=== PATIENT | male | born 1955 | race Caucasian/White ===

== ENCOUNTER 2017-01-12 08:49 | Observation (INO) | payer OTHER ==
[~2017-01-12] VITALS: Ht 175.3 cm; Wt 104.1 kg
[2017-01-12] VITALS (12 sets, daily range): BP systolic 126–157; BP diastolic 43–102; PULSE 54–83; RESP 12–17; O2SAT 95–100
[~2017-01-12 08:49] MED LIST: ASPI-973 PO; CHOL10008 PO; CYCL10TA9 PO; DIAZ5TAB PO; DIPH1TAB PO; FERR-83 PO; FURO40TA4 PO; GABA-502 PO; IMAT400T PO; LIPA1CAP5 PO; METH10TA2 PO; MODA200T13 PO; MULT-1073 PO; NPR500T PO; OMEP20CA11 PO; POTA20TA16 PO; PRAV40TA PO; RANI150C4 PO; SERT50TA PO
--- NOTE | 2017-01-12 09:11 | ED.REPORT ---
HPI-General Illness Date of Service Jan 12, 2017 ED Provider: The patient is a 61 year old male with history of GERD, Huerta's esophagus, prostate cancer s/p radiation, CHF, hypertension, VERENA, hiatal hernia s/p RPR/ Vagotomy, liver disease s/p partial liver resection, kidney stones, back pain, anxiety, depression, GIST tumor, and gallbladder disease, who presents to the emergency department complaining of coffee-ground emesis that began yesterday. He has had 2 episodes since onset. The patient states he is vomiting blood not coughing up blood. The patient has experienced nausea, vomiting, and diarrhea, frequently over the last few weeks. This morning he also felt lightheaded and dizzy when getting up. He denies dark stools, bloody stools, abdominal pain, chest pain or shortness of breath. The patient also reports recent night terrors. He is not on any blood thinners. Nursing Notes Stated Complaint: COUGHING UP BLOOD Chief Complaint: General Complaint Nursing Notes Reviewed: Yes Allergies: Coded Allergies: cephalexin (Verified Allergy, Intermediate, lips swelled and itching, 01/12) Scheduled Aspirin (Aspirin) 81 Mg Tablet 81 MG PO DAILY Atorvastatin (Lipitor) 20 Mg Tablet 20 MG PO DAILY Cholecalciferol (Vitamin D3) (Vitamin D3) 1,000 Unit Tab.chew 1,000 UNIT PO DAILY Ferrous Sulfate (Ferrous Sulfate) 325 Mg Tablet 325 MG PO DAILY Gabapentin (Gabapentin) 300 Mg Capsule 300 MG PO TID Methylphenidate (Ritalin) 10 Mg Tablet 10 MG PO 5XD Multivits-Min/FA/Lycopene/Lut (Centrum Silver Tablet) 1 Each Tablet 1 EACH PO DAILY Nortriptyline (Nortriptyline) 10 Mg Capsule 10 MG PO HS Omeprazole (Omeprazole) 20 Mg Capsule.dr 40 MG PO DAILY Ranitidine (Ranitidine) 150 Mg Capsule 150 MG PO DAILY Sertraline HCl (Zoloft) 50 Mg Tablet 100 MG PO DAILY Tamsulosin (Flomax) 0.4 Mg Capsule 0.4 MG PO DAILY Scheduled PRN Chlorzoxazone (Chlorzoxazone) 500 Mg Tablet 500 MG PO TID PRN PRN For Spasm Diazepam (Valium) 5 Mg Tablet 5 MG PO BID PRN PRN For Anxiety Diphenoxylate/Atropine 2.5-0.025 mg (Lomotil 2.5-0.025 mg) 1 Each Tablet 5 TAB PO DAILY PRN PRN For Diarrhea or Loose Stool Furosemide (Furosemide) 40 Mg Tablet 40 MG PO DAILY PRN PRN edema Ondansetron ODT (Ondansetron ODT) 8 Mg Tab.rapdis 8 TAB PO HS PRN PRN For Nausea /Vomiting Oxycodone HCl/Acetaminophen 5-325 (Endocet 5-325) 1 Each Tablet 1 TABLET PO q4- 6h PRN PRN For Pain Potassium Citrate ER (Potassium Citrate ER) 15 Meq Tablet 15 MEQ PO DAILY PRN PRN with furosemide TAKE WITH FOOD General Time Seen by MD: 09:10 Chief Complaint Other (coffee-ground emesis) Hx Obtained From: Patient Arrived By: Walk-in Sudden in Onset?: Yes Onset Occurred: 2 days ago Symptom Duration: Intermittent Severity: Current: No pain currently Severity: Maximum: No pain Recent Healthcare: No recent hospitalization, Recent doctor visit Similar Sx Previous: No Past Medical History Past Medical History GERD, Huerta's esophagus, prostate cancer s/p radiation, CHF, hypertension, VERENA, hiatal hernia s/p RPR/Vagotomy, liver disease s/p partial liver resection, kidney stones, back pain, anxiety, depression, GIST tumor, and gallbladder disease Past Surgical History T&A C6 ACDF Pilonidal cyst Hiatal hernia Right wrist surgery Liver resection Family History Noncontributory Smoking History Former Smoker Social History Other Social History: , Local resident Ambulatory Status Independent Review of Systems +night terrors Full Review of Systems GI: Reports: Diarrhea, Hematemesis, Nausea, Vomiting, Denies: Abdominal pain, Bloody/tarry stool, Hematochezia, Melena Neurologic: Reports: Lightheaded Complete sys rev & neg: except as marked. Physical Exam Vital Signs Vital Signs Date Time Temp Pulse Resp B/P Pulse Ox O2 Delivery O2 Flow Rate FiO2 01/12/17 11:23 36.1 131/84 01/12/17 08:54 36.5 83 12 155/94 95 Room Air Initial VS: Reviewed Head / Eyes: Atraumatic, Normocephalic, PERRL ENT: Mucous membranes moist, Conjunctiva normal, No scleral icterus Neck: Supple, Non-tender, Full range of motion Respiratory: Breath sounds normal, Clear to auscultation, No respiratory distress Cardiovascular: Regular rate & rhythm, Heart sounds normal, Intact distal pulses Abdomen / GI: Soft, Non-tender, No guarding, No rebound, No distention Lymphatic: No lymphadenopathy Extremities: Vascular intact, Neuro intact, No swelling, No tenderness Skin: Warm, Dry, No cyanosis Neurologic: Alert, Oriented, Nonfocal Psychiatric: Mood/affect normal, Behavior normal, Normal thought content General/Constitutional: Awake, Alert, No acute distress, Cooperative Interpretation & Diagnostics Lab Results Interpretation Result Diagram: 01/12/17 0943 01/12/17 0943 Test 01/12/17 09:43 White Blood Count 8.0th/mm3 (3.8-10.1) Red Blood Count 4.02mil/mm3 (4.40-5.80) Hemoglobin 11.4g/dL (13.8-17.2) Hematocrit 35.3% (41.0-50.0) Mean Corpuscular Volume 87.8fL (81-100) Mean Corpuscular Hemoglobin 28.4pg (27.0-35.0) Mean Corpuscular Hemoglobin Concent 32.3% (32.0-37.0) Red Cell Distribution Width 14.4% (12.3-15.4) Platelet Count 317bil/L (150-400) Neutrophils (%) (Auto) 68.8% (40-74) Lymphocytes (%) (Auto) 17.9% (14-46) Monocytes (%) (Auto) 8.9% (4-12) Eosinophils (%) (Auto) 2.9% (0-5) Basophils (%) (Auto) 0.4% (0-3) Prothrombin Time 10.0sec (8.1-12.5) Prothromb Time International Ratio 0.94ratio Sodium Level 140mEq/L (134-144) Potassium Level 3.9mEq/L (3.5-5.2) Chloride Level 101mEq/L (97-108) Carbon Dioxide Level 23mmol/L (18-29) Blood Urea Nitrogen 17mg/dL (8-27) Creatinine 1.14mg/dL (0.76-1.27) Estimat Glomerular Filtration Rate 69mL/min (>59) Glucose Level 125mg/dL (60-99) Calcium Level 9.1mg/dL (8.5-10.1) Total Bilirubin 0.4mg/dL (0.0-1.2) Aspartate Amino Transf (AST/SGOT) 26U/L (0-50) Alanine Aminotransferase (ALT/SGPT) 22U/L (0-44) Alkaline Phosphatase 125U/L (25-160) Total Protein 7.1g/dL (6.4-8.4) Albumin 3.7g/dL (3.4-5.0) Re-Eval/Medical Decision Source of Hx: Old records Time of Eval: 10:43 Re-Evaluation/Progress Note: Rechecked the patient. Discussed results, diagnosis, and plan for admission. All questions were addressed. Consultation #1: Referral / Consult Name: Kellie Vazquez MD Call Returned at: 10:39 Sales Engagement Executive: Will see in office, Agrees with eval, Agrees with plan Note: Spoke to the on-call printed circuit board panels developer. He recommends admitting the patient - NPO, PPI, will scope today after 5 PM. Consultation #2: Referral / Consult Name: Yung Smith MD Consulted With: Hospitalist Requested Call at: 10:41 Call Returned at: 11:40 Sales Engagement Executive: Will see patient, Agrees with eval, Agrees with plan, Accepts admit Counseled Regarding: Diagnosis, Lab results, Need for admission Discharge & Departure Primary Impression: Hematemesis Nausea presence: with nausea Qualified Code: K92.0 - Hematemesis Disposition: ADMITTED TO HOSPITAL Discharge Condition All VS Reviewed: Yes Condition: Stable Referrals: Leonardo Bailey MD (PCP) Kellie Vazquez MDibcullen Attestation Portions of this note were transcribed by Neetu Reyes. I, Dr. Mtz personally performed the history, physical exam and medical decision-making; I reviewed and confirmed the accuracy of the information in the transcribed note. Signed by: Sean Waters, 01/12/17 at 1200. copies to: Kellie Vazquez MD; Leonardo Bailey MD, Timothy S DO Jan 12, 2017 09:10 Neetu Reyes Jan 12, 2017 09:18
[2017-01-12] MEDS ORDERED: 0.9% Sodium Chloride 1,000 ML IV ONE (09:21)
[2017-01-12] MEDS ORDERED: Pantoprazole 4 mg/mL 10 mL Inj IVPUSH ONE (09:25)
[2017-01-12 09:53] LABS: BASOPHILS % (AUTO) 0.4 % (0-3); EOSINOPHILS % (AUTO) 2.9 % (0-5); MONOCYTES % (AUTO) 8.9 % (4-12); Mean Corpuscular Hemoglobin 28.4 pg (27.0-35.0); Mean Corpuscular Volume 87.8 fL (81-100); NEUTROPHILS % (AUTO) 68.8 % (40-74); Platelet Count 317 bil/L (150-400)
[2017-01-12 10:08] LABS: INR 0.94 ratio
[2017-01-12] MEDS ORDERED: LIP40 PO (11:22)
[2017-01-12] MEDS ORDERED: MULT-1073 PO (11:22)
[2017-01-12] MEDS ORDERED: [UNRECOGNIZED DRUG - OTHER] IV ONE (11:25)
[2017-01-12] MEDS ORDERED: Alum-Mag Hydrox-Simeth 30 mL Suspension PO PRN (11:25)
[2017-01-12] MEDS ORDERED: Ondansetron 2 mg/mL 2 mL Inj IVPUSH PRN (11:25)
[2017-01-12] MEDS ORDERED: Polyethylene Glycol (PEG) 17 Gm Powder PO PRN (11:25)
[2017-01-12] MEDS ORDERED: Propofol 10,000 mCg/mL 20 mL Inj ONE (12:00)
[2017-01-12] MEDS ORDERED: OXYC-407 PO (12:39)
[2017-01-12] MEDS ORDERED: POTA15TA9 PO (12:39)
--- NOTE | 2017-01-12 12:42 | NUR ---
Admission received report from [facility] INSPECTOR FINISHING. patient arrived to [facility] rm 1006 at 1240hrs, assumed care. patient denies n/v, CP, SOB, Abdominal pain. reports some chronic low back pain rating 4-5/10, tolerable.
[2017-01-12] MEDS ORDERED: ONDA8TAB10 PO (12:45)
[2017-01-12] MEDS ORDERED: TAMS0.4C98 PO (12:46)
[2017-01-12] MEDS ORDERED: CHLO500T24 PO (12:47)
[2017-01-12] MEDS ORDERED: NORT10CA PO (12:48)
[2017-01-12] MEDS ORDERED: ATOR20TA PO (12:49)
--- NOTE | 2017-01-12 13:00 | NUR ---
Admit nurse note Admission assessment started in ER and partially finished on unit with assistance from pharmacy records. DPOA faxed in by sister. Pt. denies complaints of pain but states he has been having increasing depression and his antidepressant and valium have not been helping recently. Pt. has been increasing his dose of valium with no effect. Pt. c/o S/E of recent cancer treatment, which he has talked with his doctor about. He states he is concerned about being discharged after endoscopy because he has no help to get home and feels concerned about driving himself. MD at bedside immediately after my assessment and is informed of issues voiced by pt. Report given to Ezekiel Ruiz.
--- NOTE | 2017-01-12 15:32 | NUR ---
Care Took over care at 1500.
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
--- NOTE | 2017-01-12 18:45 | PCM.HPANE ---
Patient Data Surgeon Admitting Provider:Yung Smith MD Attending Provider:Yung Smith MD Primary Care Physician:Leonardo Bailey MD Other Provider: Reason for Visit Hematemesis Ht/WT & BMI Height (Feet): 5 Height (Inches): 9.00 Weight (Kilograms): 104.100 Body Mass Index 33.99 Allergies Coded Allergies: cephalexin (Verified Allergy, Intermediate, lips swelled and itching, 01/12) Past Anesthesia History Anesthesia History: Denies:: Abnormal Airway, Anesthesia Reactions, Difficult Intubation, Fam Anesthesia Reaction, Fam Malignant Hypertherm, Malignant Hyperthermia Diabetes History Hx Diabetes?: No Current Bedside Blood Glucose: 89 MRSA MRSA: No Medications Blood Thinner: Aspirin Reported Medications Atorvastatin (Lipitor)20 Mg Yeuyvi15 Mg PO DAILY Ref 0 01/12/17 Nortriptyline 10 Mg Uiyftaj22 Mg PO HS 01/12/17 Chlorzoxazone 500 Mg Xinxno491 Mg PO TID PRN For Spasm 01/12/17 Tamsulosin (Flomax)0.4 Mg Capsule0.4 Mg PO DAILY Ref 0 01/12/17 Ondansetron ODT 8 Mg Tab.rapdis8 Tab PO HS PRN For Nausea/Vomiting 01/12/17 Potassium Citrate ER 15 Meq Rzfbbh55 Meq PO DAILY PRN with furosemide Ref 0 TAKE WITH FOOD 01/12/17 Oxycodone HCl/Acetaminophen 5-325 (Endocet 5-325)1 Each Tablet1 Tablet PO q4-6h PRN For Pain 01/12/17 Multivits-Min/FA/Lycopene/Lut (Centrum Silver Tablet)1 Each Tablet1 Each PO DAILY 01/12/17 Methylphenidate (Ritalin)10 Mg Hwzpog20 Mg PO 5XD Ref 0 07/19/16 Omeprazole 20 Mg Capsule.dr40 Mg PO DAILY Ref 0 01/20/16 Gabapentin 300 Mg Mwcbwfs371 Mg PO TID Ref 0 10/15/15 Aspirin 81 Mg Uplroj89 Mg PO DAILY Ref 0 09/03/15 Furosemide 40 Mg Mnpcos96 Mg PO DAILY PRN edema 03/25/15 Ranitidine 150 Mg Immqeoe491 Mg PO DAILY Ref 0 03/25/15 Cholecalciferol (Vitamin D3) (Vitamin D3)1,000 Unit Tab.chew1,000 Unit PO DAILY 03/25/15 Ferrous Sulfate 325 Mg Bnutgx430 Mg PO DAILY 30 Days Ref 0 01/01/15 Diphenoxylate/Atropine 2.5-0.025 mg (Lomotil 2.5-0.025 mg)1 Each Tablet5 Tab PO DAILY PRN For Diarrhea or Loose Stool 01/01/15 Sertraline HCl (Zoloft)50 Mg Zfjear325 Mg PO DAILY 30 Days Ref 0 12/24/14 Diazepam (Valium)5 Mg Tablet5 Mg PO BID PRN For Anxiety 30 Days Ref 0 08/13/14 Discontinued Reported Medications Atorvastatin (Lipitor)40 Mg TabletUnknown Dose PO DAILY Ref 0 01/12/17 Modafinil (Provigil)200 Mg Rokzpo539 Mg PO DAILY 30 Days Ref 0 11/05/15 Naproxen 500 Mg Fil039 Mg PO DAILY PRN For Pain Ref 0 10/08/15 Imatinib Mesylate (Gleevec)400 Mg Qbynfp116 Mg PO DAILY 30 Days 09/02/15 Lipase/Protease/Amylase (Creon DR)24,000 Unit Capsule2 Capsule PO TID 09/02/15 Cyclobenzaprine 10 Mg Indpeh34 Mg PO TID PRN Spasm 03/25/15 Potassium Chloride 20 Meq Tab.er.prt20 Meq PO DAILY PRN with furosemide dose 30 Days Ref 0 TAKE WITH FOOD 03/25/15 Pravastatin 40 Mg Ntrpde93 Mg PO DAILY 30 Days Ref 0 08/13/14 History History of ENT Problems?: No HEENT History: Positive for:: Hearing Problem Denies:: Abnormal Airway Cataracts Difficult Intubation Dysphagia Glaucoma Sinus Problem Denture Type: None Teeth Condition: Within Normal Limits Hx of Heart Problems?: Yes Cardiovascular History: Positive for:: Edema Heart Murmur Hypertension Denies:: AICD Atrial Fibrillation Cardiac Surgery Chest Pain Congestive Heart Failure Irregular Heartbeat Pacemaker Thrombophlebitis Valvular Heart Disease Other Cardiac History: pulmonary hypertension Hx of Respiratory Problem?: Yes Respiratory History: Positive for:: Cough Hemoptysis Pneumonia (1973) Use of C-PAP Machine (REPORTED VERENA+) Denies:: Asthma COPD Chest Surgery Dyspnea Emphysema Tuberculosis Hx Neurologic Problems?: Yes Neurological History: Positive for:: Dizziness Headaches Seizures (reports 1 seizure in 1990) Denies:: Alzheimer's Disease CVA Dementia Parkinson's Disease Hx of GI Problems?: Yes Other GI Pertinent History: hdz's esophagus Hx of Problems?: Yes Genitourinary History: Positive for:: Kidney Stones Urinary Tract Infection Denies:: HX of Hemodialysis HX of Peritoneal Dialysis: No Male Hx: Positive for:: Prostate Problems (prostate cancer--radiation and seed therapy) Denies:: Scrotal Mass Testicular Surgery Skin History: Denies:: History Skin Disorders? Pressure Ulcers Hx Musculoskeletal Problems?: Yes Musculoskeletal History: Positive for:: Back Injury (chronic low back pain) Denies:: Joint Replacement Musculoskeletal Trauma Hx of Psycho/Social Problems?: Yes Psycho Social History: Positive for:: Anxiety Hx Depression Denies:: Bipolar Disorder Suicide Attempt Hx Surgeries?: Yes (neck surgery, tonsilectomy, liver/stomach resction, L5-S1 lami) Hx Any Other Health Problems?: Yes Other History: Positive for:: Cancer (prostate ) Hospitalization (- 1990, neck surgery, tonsilecomy, ) Denies:: Endocrine Disease Thyroid Disease History Blood Transfusions: Positive for:: Accept Blood Products? Blood Transfusions Denies:: Blood Transfuse Reaction Hx Diabetes: NoBedside Blood Glucose: 89 Hx Alcohol Use: Yes (as young man)Hx Substance Use: No Smoking Status: Former Smoker Have You Smoked inLast 12 mo: No Stop/Bang Treated for Sleep Apnea?: Yes Do You Have a CPAP Machine?: Yes S-Snoring: Do You Snore Loudly: Yes T-Tired: feel tired, fatigued: Yes O-Obsered: Observed not breath: Yes P-Blood Pressure: treated: Yes B- Body Mass Index > 35 kg/m2: No A- Age over 50: Yes N- Neck Large Circumference: Yes G- Gender Male: Yes VERENA Total Score: 6 Risk Assessment Category Category 1A: Patient has history of documented sleep apnea, and HAS NOT received any narcotic, sedative or anesthesia administration during this stay. Category 1B: Patient has history of documented sleep apnea, and HAS received any narcotic , sedative or anesthesia administration during this stay Category 2: Patient has SUSPECTED Obstructive Sleep Apnea, and HAS received any narcotic , sedative or anesthesia administration during this stay. Category 3: Patient has SUSPECTED Obstructive Sleep Apnea and HAS NOT received narcotic, sedative or anesthesia administration during this stay. Category 4: Outpatient in Procedural Areas with known sleep apnea or who screen positive for High Risk via the STOP/BANG questionnaire. Exam Exam Vital Signs Vital Signs Date Time Temp Pulse Resp B/P Pulse Ox O2 Delivery O2 Flow Rate FiO2 7/13/17 16:50 36.7 65 16 155/96 99 Room Air 01/12/17 13:37 74 01/12/17 13:07 36.5 70 16 146/96 96 Room Air 01/12/17 12:41 36.3 72 16 126/82 95 Room Air 01/12/17 12:26 36.3 72 16 126/82 95 Room Air 01/12/17 11:23 36.1 131/84 General Appearance: Alert, Oriented X3, Cooperative, No Acute Distress HEENT/AIRWAY: MP 3 Lungs: Clear to Auscultation Heart: Exam Unremarkable Meds/Labs/Diagnostics Admission Meds Current Medications Pantoprazole 80 mg 80 mg STAT ONCE IVPUSH Last administered on 01/12/17 09:57 ; Start 01/12/17 at 09:25; Stop 01/12/17 at 09:26; Status DC Sodium Chloride (Normal Saline) 1,000 ml @ 0 mls/hr Q0M ONCE IV Last administered on 01/12/17 09:56; Start 01/12/17 at 09:21; Stop 01/12/17 at 09:22 ; Status DC Diazepam (Valium) 10 mg ONCE ONCE PO Last administered on 01/12/17 16:34; Start 01/12/17 at 16:20; Stop 01/12/17 at 16:21; Status DC Bedside Blood Glucose: 89 Labs Test 01/12/17 09:43 White Blood Count 8.0th/mm3 (3.8-10.1) Red Blood Count 4.02mil/mm3 (4.40-5.80) Hemoglobin 11.4g/dL (13.8-17.2) Hematocrit 35.3% (41.0-50.0) Mean Corpuscular Volume 87.8fL (81-100) Mean Corpuscular Hemoglobin 28.4pg (27.0-35.0) Mean Corpuscular Hemoglobin Concent 32.3% (32.0-37.0) Red Cell Distribution Width 14.4% (12.3-15.4) Platelet Count 317bil/L (150-400) Neutrophils (%) (Auto) 68.8% (40-74) Lymphocytes (%) (Auto) 17.9% (14-46) Monocytes (%) (Auto) 8.9% (4-12) Eosinophils (%) (Auto) 2.9% (0-5) Basophils (%) (Auto) 0.4% (0-3) Prothrombin Time 10.0sec (8.1-12.5) Prothromb Time International Ratio 0.94ratio Sodium Level 140mEq/L (134-144) Potassium Level 3.9mEq/L (3.5-5.2) Chloride Level 101mEq/L (97-108) Carbon Dioxide Level 23mmol/L (18-29) Blood Urea Nitrogen 17mg/dL (8-27) Creatinine 1.14mg/dL (0.76-1.27) Estimat Glomerular Filtration Rate 69mL/min (>59) Glucose Level 125mg/dL (60-99) Calcium Level 9.1mg/dL (8.5-10.1) Total Bilirubin 0.4mg/dL (0.0-1.2) Aspartate Amino Transf (AST/SGOT) 26U/L (0-50) Alanine Aminotransferase (ALT/SGPT) 22U/L (0-44) Alkaline Phosphatase 125U/L (25-160) Total Protein 7.1g/dL (6.4-8.4) Albumin 3.7g/dL (3.4-5.0) Thyroid Stimulating Hormone (TSH) 0.381uIU/mL (0.450-4.500) Plan Impression Patient chart reviewed, patient interviewed and anesthestic plan with risks, benefits, and alternatives discussed, and informed consent obtained. ASA Physical Status: ASA3 Severe Disease Anesthetic Plan: MAC Bene/Risks/Altern/Consents: Yes HP Complete Prior to Induction: Yes Franklin Regalado MD Jan 12, 2017 18:01
--- NOTE | 2017-01-12 19:23 | ENDO ---
[address] [address] ENDOSCOPY PROCEDURE PATIENT: JOSE WATERMAN : 1955 MR#: [id number] ADMIT: 01/12/2017 JOB ID: [id number] DATE: 01/12/2017 PROCEDURE: Esophagogastroduodenoscopy (EGD). INDICATION: Hematemesis. ANESTHESIA: Patient's ASA classification, Mallampati score, and medications as per Dr. Franklin Regalado's anesthesia report. INSTRUMENT USED: GIF H 180 J. PROCEDURE DETAILS: After informed consent was obtained, the patient was brought into the GI suite where he was placed on oxygen via nasal cannula and monitored with continuous pulse oximeter, telemetry, and blood pressure monitoring. A time-out was performed, then he was placed in the left lateral decubitus position and medications were administered for sedation. A bite block was placed. The standard EGD scope was inserted through the bite block and advanced without difficulty to the second portion of the duodenum. FINDINGS: 1. Normal appearing duodenal bulb, first and second portion. Bile stained mucosa was noted throughout the examined portions of the duodenum. 2. Normal appearing pylorus. In the body of the stomach there was what appeared to be an anastomosis consistent with the patient's prior history of gastric surgery for gastrointestinal stromal tumor. Retroflexed views in the gastric body revealed normal appearing mucosa in the cardia and fundus. 3. No old or fresh blood was seen in the stomach. 4. The GE junction was at approximately 41 cm. Arising from the GE junction were two tongues of salmon-colored mucosa extending up to 36 cm. The appearance was consistent with Huerta's esophagus. IMPRESSION: 1. Surgical changes in the stomach consistent with the patient's prior history of gastric surgery. 2. Huerta's esophagus. 3. No old or fresh blood seen on exam. No findings to explain the patient's hematemesis. RECOMMENDATIONS: 1. Start clear liquid diet. 2. Recommend PPI b.i.d. 3. Okay to discharge from a GI standpoint. 4. Will schedule him for outpatient EGD at a later date for further evaluation of his Huerta esophagus. COMPLICATIONS: None. ESTIMATED BLOOD LOSS: Zero.
--- NOTE | 2017-01-12 19:49 | PCM.CHPMED ---
Subjective Date of Service: Jan 12, 2017 Provider requesting consult: Spenser Mtz DO Primary Physician: Admitting Physician: Yung Smith MD Primary Care Physician: Leonardo Bailey MD Attending Physician: Yung Smith MD Chief Complaint: Chief Complaint: coffee ground vomit History of Present Illness: GASTROENTEROLOGY CONSULTATION 61-year-old male with past medical history of Gist tumor status post resection, GERD, Huerta's esophagus, hypertension, VERENA, and CHF presents with coffee- ground emesis that started yesterday. He had a small episode of vomiting with some coffee-ground appearing products within it and this morning he had approximately 2 ounces of emesis that looked again like coffee grounds. He is not taking any blood thinners, he has recently completed radiation for prostate cancer. He has hormone therapy that has made him feel ill however in the last day he has felt worsening nausea, has diarrhea, he also feels lightheaded and dizzy. He has diffuse abdominal pain with some occasional bladder and bowel incontinence that seems to be worsening since radiation therapy. He has experienced no fever or chills. Review of Systems: A comprehensive review of systems was conducted with the patient and found to be negative except as above in the History of Present Illness. 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, prostate cancer status post 9 weeks radiation with completion in the end of December 2016, CHF, hypertension, VERENA, hiatal hernia status post RPR/vagotomy, PTSD , anxiety, depression, back pain Bedside Blood Glucose: 89 Surgical History Gist tumor resection June 2014, liver resection, hiatal hernia repair in 1990 with vagotomy and surgery for 7 ulcers, C6 spine cervical fusion, uvulectomy, tonsillectomy, adenoidectomy for VERENA Allergies: Coded Allergies: cephalexin (Verified Allergy, Intermediate, lips swelled and itching, 01/12) Family History Family History Family history of colon cancer in maternal uncles and grandfather, father with prostate cancer No history of celiac or inflammatory bowel disease is known in the family Social History 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) Hx Substance Use: No Smoking Status: Former Smoker Exam Vital Signs Vital Sign - Last Date Time Temp Pulse Resp B/P Pulse Ox O2 Delivery O2 Flow Rate FiO2 01/12/17 18:40 71 16 130/80 Nasal Cannula 4 01/12/17 18:00 36.7 99 General: Alert, Oriented X3, Cooperative Head: Normal Mouth: Mucous Membr Moist/[place] Neck: Supple Chest & Lungs: Auscultation (clear bilaterally) Cardiovascular: Regular Rate/Rhythm Abdomen: Tender (mildly in right upper quadrant and epigastric areas), Non- distended, Soft, Obese Extremities: No cyanosis/clubbing/edma bilat Neurological: Grossly Neurologically Intact Lab and Diagnostics Result Diagram: 01/12/1794201/12/17942 Additional Diagnostics: Esophagogastroduodenoscopy (EGD). IMPRESSION: 1. Surgical changes in the stomach consistent with the patient's prior history of gastric surgery. 2. Huerta's esophagus. 3. No old or fresh blood seen on exam. No findings to explain the patient's hematemesis. RECOMMENDATIONS: 1. Start clear liquid diet. 2. Recommend PPI b.i.d. 3. Okay to discharge from a GI standpoint. 4. Will schedule him for outpatient EGD at a later date for further evaluation of his Huerta esophagus. Kellie Vazquez MD 01/12/17 [id number] Assessment & Plan Assessment 61-year-old male with past medical history of Gist tumor status post resection, GERD, Huerta's esophagus, hypertension, VERENA, and CHF presents with 2 episodes of small volume coffee-ground emesis that started yesterday. She had some associated lightheadedness and dizziness. He is mildly hypertensive with a pulse of 70 upon presentation, he is afebrile. He has a hemoglobin of 11.4. Patient underwent EGD that showed no old or fresh blood on exam, without findings to explain hematemesis. Huerta's esophagus was identified. RECOMMENDATIONS: 1. Start clear liquid diet. 2. Recommend PPI b.i.d. 3. Okay to discharge from a GI standpoint. 4. Will schedule him for outpatient EGD at a later date for further evaluation of his Huerta esophagus. Problems: Pain Evaluation: Adequate Pain Control Resuscitation Status: CPR: Attempt Resuscitation Attending Statement Patient was seen and examined with Dr. Travis I agree with her assessment and plan as outlined above copies to: Kellie Vazquez MD, Erika R DO Jan 12, 2017 18:45 Kellie Vazquez MD Jan 18, 2017 13:20
[2017-01-12] MEDS: Pantoprazole 4 mg/mL 10 mL Inj IVPUSH SCH (21:08)
[2017-01-12] MEDS ORDERED: Ondansetron 8 mg ODT Tablet PO PRN (22:15)
[2017-01-12] MEDS ORDERED: oxyCODONE-Acetamin 5-325 mg Tablet PO ONE (23:15)
[2017-01-13 00:04] VITALS: BP 135/84
[2017-01-13 03:44] VITALS: PULSE 55
[2017-01-13 05:03] VITALS: BP 144/86; PULSE 58; RESP 18; O2SAT 98
[2017-01-13 05:49] LABS: APPEARANCE,URINE CLEAR (CLEAR,HAZY); COLOR,URINE YELLOW (YELLOW); OCCULT BLOOD,URINE NEGATIVE (NEGATIVE); PH,URINE 5.5 (5.0-8.0); UROBILINOGEN,URINE NORMAL (NORMAL)
[2017-01-13 05:55] LABS: BASOPHILS % (AUTO) 0.4 % (0-3); EOSINOPHILS % (AUTO) 5.1 % (0-5); MONOCYTES % (AUTO) 14.3 % (4-12); Mean Corpuscular Hemoglobin 28.4 pg (27.0-35.0); Mean Corpuscular Volume 89.2 fL (81-100); NEUTROPHILS % (AUTO) 49.8 % (40-74); Platelet Count 268 bil/L (150-400)
--- NOTE | 2017-01-13 06:09 | NUR ---
Pain Chronic pain and anxiety adequately controlled with prn meds per med rec. Pulse oximetry for known VERENA, stable with SBA to BR. Observed sleeping majority of night. Hourly rounding ongoing.
[2017-01-13 06:10] LABS: Magnesium 1.8 mg/dL (1.6-2.6)
[2017-01-13 08:00] VITALS: PULSE 54
[2017-01-13] MEDS: Pantoprazole 4 mg/mL 10 mL Inj IVPUSH SCH (08:30)
[2017-01-13 09:33] VITALS: BP 137/78; PULSE 76; RESP 16; O2SAT 99
--- NOTE | 2017-01-13 14:32 | NUR ---
GI pt has had no c/o pain, nausea, no emesis or diarrhea. VSS. Eating 100% of meals
--- NOTE | 2017-01-13 15:11 | PCM.DIMED ---
Discharge Instructions Date of Service Jan 13, 2017 Dates of Hospitalization Jan 12, 2017 at 11:59 Discharge Diagnosis Discharge Diagnosis Alan's Esophagus Diet Discharge Diet: Heart Healthy Activity Discharge Activity: No restrictions Call your provider Call your provider for: Fever or Chills, Shortness of breath, Bleeding, Chest pain, Vomitting, Excessive diarrhea, Weakness (unilateral) Patient Instructions Follow-up Provider: Leonardo Bailey MD Follow-up with PCP in: 1 week Provider: Kellie Vazquez MD Follow-up in: 2 weeks Yung Smith MD Jan 13, 2017 15:11
[2017-01-13] MEDS ORDERED: PANT40TA2 PO (15:13)
--- NOTE | 2017-01-13 16:12 | NUR ---
discharged home will have f/u appts with PCP in [address] Vazquez in 2weeks. Pt doing well having no sx, Rx for Protonix sent electronically to [facility]
--- NOTE | 2017-01-13 17:26 | NUR ---
spiritual care: pt request lengthy conversational visit. pt unburdened fears and sifted through intertwining themes of purpose, legacy, trauma, reconciliation and grief. pts apprehensiveness related to diagnosis and specifically recent endo procedure has created urgency, he said, to "tell someone who understands" Pt shared personal history, vocational and avocational activities important to him including coming to terms with his values and future goals. Pt a "man of jacquelin" and described the central role his orthodox activities play for him. Had received visits from [facility] pastoral staff.
--- NOTE | 2017-01-13 17:37 | PCM.PNMED ---
Subjective Date of Service Jan 13, 2017 Subjective Patient reports feeling okay this morning. He had nightmares last night which she often has. She has had no additional signs of blood loss. Exam Vital Signs Vital Sign - Last Date Time Temp Pulse Resp B/P Pulse Ox O2 Delivery O2 Flow Rate FiO2 01/13/17 09:33 36.5 76 16 137/78 99 Room Air 01/12/17 18:40 4 Intake and Output 01/12/17 01/12/17 01/13/17 Cumulative From/Thru 15:00 23:00 07:00 01/12/17 08:54 - 01/13/17 05:03 Intake Total 1000 ml 100 ml 520 ml 1620 ml Output Total 400 ml 400 ml Balance 1000 ml 100 ml 120 ml 1220 ml Intake Oral 0 ml 520 ml 520 ml IV Total 1000 ml 100 ml 1100 ml Output Urine Total 400 ml 400 ml # Voids 3 3 # Bowel Movements 0 0 0 Exam General: Alert, Oriented X3, Cooperative Head: Normal Mouth: Mucous Membr Moist/[place] Neck: Supple Chest & Lungs: Normal respiratory effort Cardiovascular: Regular Rate/Rhythm Abdomen: Non-distended, Obese Extremities: No cyanosis/clubbing/edma bilat Neurological: Grossly Neurologically Intact Lab and Diagnostics Result Diagram: 01/13/177 01/13/17 044 Assessment & Plan 61-year-old male with past medical history of Gist tumor status post resection, GERD, Huerta's esophagus, hypertension, VERENA, and CHF presents with 2 episodes of small volume coffee-ground emesis that started yesterday. She had some associated lightheadedness and dizziness. He is mildly hypertensive with a pulse of 70 upon presentation, he is afebrile. He has a hemoglobin of 10.8. Patient underwent EGD that showed no old or fresh blood on exam, without findings to explain hematemesis. Huerta's esophagus was identified. RECOMMENDATIONS: 1. Start clear liquid diet. 2. Recommend PPI b.i.d. 3. Okay to discharge from a GI standpoint. Case discussed with hospitalist 4. Will schedule him for outpatient EGD at a later date for further evaluation of his Huerta esophagus. Pain Evaluation: Adequate Pain Control GI Prophylaxis: Proton Pump Inhibitor VTE Prophylaxis: SCDs VTE Mechanical Devices: Intermittant Pneumatic CD Resuscitation Status: CPR: Attempt Resuscitation Attending Statement Patient seen and examined with Dr. Travis Agree with her assessment and plan as outlined above copies to: Kellie Vazquez MD, Erika R DO Jan 13, 2017 15:28 Kellie Vazquez MD Jan 18, 2017 13:33
--- NOTE | 2017-01-14 00:21 | PCM.DC.MED ---
Discharge Summary Date of Service Jan 13, 2017 Dates of Hospitalization Date of Hospital Admission Jan 12, 2017 at 11:59 Date of Discharge: Jan 13, 2017 Providers: Admitting Physician: Yung Smith MD Primary Care Physician: Leonardo Bailey MD Attending Physician: Yung Smith MD Diagnosis at Time of Discharge Diagnosis at Time of Discharge Alan's Esophagus Brief History GASTROENTEROLOGY CONSULTATION 61-year-old male with past medical history of Gist tumor status post resection, GERD, Huerta's esophagus, hypertension, VERENA, and CHF presents with coffee- ground emesis that started yesterday. He had a small episode of vomiting with some coffee-ground appearing products within it and this morning he had approximately 2 ounces of emesis that looked again like coffee grounds. He is not taking any blood thinners, he has recently completed radiation for prostate cancer. He has hormone therapy that has made him feel ill however in the last day he has felt worsening nausea, has diarrhea, he also feels lightheaded and dizzy. He has diffuse abdominal pain with some occasional bladder and bowel incontinence that seems to be worsening since radiation therapy. He has experienced no fever or chills. Hospital Course 61-year-old male with past medical history of Gist tumor status post resection, GERD, Huerta's esophagus, hypertension, VERENA, and CHF presents with 2 episodes of small volume coffee-ground emesis that started yesterday. She had some associated lightheadedness and dizziness. He is mildly hypertensive with a pulse of 70 upon presentation, he is afebrile. He has a hemoglobin of 10.8. Patient underwent EGD that showed no old or fresh blood on exam, without findings to explain hematemesis. Huerta's esophagus was identified. RECOMMENDATIONS: 1. Start clear liquid diet. 2. Recommend PPI b.i.d. 3. Okay to discharge from a GI standpoint. Case discussed with hospitalist 4. Will schedule him for outpatient EGD at a later date for further evaluation of his Huerta esophagus. Exam Vital Signs (Last) Date Time Temp Pulse Resp B/P Pulse Ox O2 Delivery O2 Flow Rate FiO2 01/13/17 09:33 36.5 76 16 137/78 99 Room Air 01/12/17 18:40 4 Exam General: Patient is in no apparent distress. He is ambulatory around the room. HEENT: Head is atraumatic and normocephalic. Eyes: Pupils are equally round and reactive to light and accommodation. Extraocular muscles are intact. Sclera are white, anicteric. Subconjunctival mucosa is pink. Ears and nose are unremarkable. Oropharynx: There is no mucosal lesions, there is no thrush, there is no pharyngitis. Neck: Is supple, there are no nodes, or masses or tenderness. Chest: Is clear to auscultation and percussion. There are no rales, rhonchi, wheezes or rubs. Heart: Rate, rhythm is regular. There is no murmur, rub or gallop. Abdomen: Good bowel sounds are present. Abdomen is obese, soft, nontender, no organomegaly or masses were appreciated. Extremities: Are symmetrical and well perfused. There is no edema, there is no cellulitis, no rash. Neurologic: There are no focal neurological deficits. Cranial nerves II through XII are intact. There are no sensory or motor deficits. Psychiatric: Patients mood is calm and shows no sign of agitation. Genital: Deferred Rectal: Deferred Test 01/12/17 09:43 01/13/17 04:47 01/13/17 05:25 Prothrombin Time 10.0sec (8.1-12.5) Prothromb Time International Ratio 0.94ratio Hemoglobin A1c 5.6% (4.8-5.6) Thyroid Stimulating Hormone (TSH) 0.381uIU/mL (0.450-4.500) White Blood Count 4.7th/mm3 (3.8-10.1) Red Blood Count 3.80mil/mm3 (4.40-5.80) Hemoglobin 10.8g/dL (13.8-17.2) Hematocrit 33.9% (41.0-50.0) Mean Corpuscular Volume 89.2fL (81-100) Mean Corpuscular Hemoglobin 28.4pg (27.0-35.0) Mean Corpuscular Hemoglobin Concent 31.9% (32.0-37.0) Red Cell Distribution Width 14.2% (12.3-15.4) Platelet Count 268bil/L (150-400) Neutrophils (%) (Auto) 49.8% (40-74) Lymphocytes (%) (Auto) 28.9% (14-46) Monocytes (%) (Auto) 14.3% (4-12) Eosinophils (%) (Auto) 5.1% (0-5) Basophils (%) (Auto) 0.4% (0-3) Sodium Level 142mEq/L (134-144) Potassium Level 3.9mEq/L (3.5-5.2) Chloride Level 104mEq/L (97-108) Carbon Dioxide Level 26mmol/L (18-29) Blood Urea Nitrogen 13mg/dL (8-27) Creatinine 1.01mg/dL (0.76-1.27) Estimat Glomerular Filtration Rate 80mL/min (>59) Glucose Level 94mg/dL (60-99) Calcium Level 9.0mg/dL (8.5-10.1) Magnesium Level 1.8mg/dL (1.6-2.6) Total Bilirubin 0.3mg/dL (0.0-1.2) Aspartate Amino Transf (AST/SGOT) 22U/L (0-50) Alanine Aminotransferase (ALT/SGPT) 20U/L (0-44) Alkaline Phosphatase 115U/L (25-160) Total Protein 6.1g/dL (6.4-8.4) Albumin 3.6g/dL (3.4-5.0) Urine Color Yellow (YELLOW) Urine Appearance Clear (CLEAR,HAZY) Urine pH 5.5 (5.0-8.0) Urine Specific [place] 1.025 (1.003-1.035) Urine Protein Negativemg/dL (NEG,TRACE) Urine Glucose (UA) Negativemg/dL (NEGATIVE) Urine Ketones Negativemg/dL (NEGATIVE) Urine Occult Blood Negative (NEGATIVE) Urine Nitrite Negative (NEGATIVE) Urine Bilirubin Negative (NEGATIVE) Urine Urobilinogen Normalmg/dL (NORMAL) Urine Leukocyte Esterase Negative (NEGATIVE) Urine RBC 0-2/hpf (0-2) Urine WBC 0-5/hpf (0-5) Urine Epithelial Cells Few/hpf (NONE-MOD) Urine Crystals None seen (NONE SEEN) Urine Bacteria Few/hpf (NONE-FEW) Urine Hyaline Casts None/lpf (NONE) Urine Granular Casts None seen (NONE SEEN) Urine Waxy Casts None seen (NONE SEEN) Urine Red Blood Cell Casts None seen (NONE SEEN) Urine White Blood Cell Casts None seen (NONE SEEN) Urine Mucus None seen (None Seen) Urine Trichomonas None seen (NONE SEEN) Urine Yeast None (NONE SEEN) Urinalysis Comment None Urine Culture Reflexed Not indicated Discharge Medications Discharge Medications Aspirin (Aspirin) 81 Mg Tablet 81 MG PO DAILY (Reported) Atorvastatin (Lipitor) 20 Mg Tablet 20 MG PO DAILY (Reported) Cholecalciferol (Vitamin D3) (Vitamin D3) 1,000 Unit Tab.chew 1,000 UNIT PO DAILY (Reported) Ferrous Sulfate (Ferrous Sulfate) 325 Mg Tablet 325 MG PO DAILY (Reported) Gabapentin (Gabapentin) 300 Mg Capsule 300 MG PO TID (Reported) Methylphenidate (Ritalin) 10 Mg Tablet 10 MG PO 5XD (Reported) Multivits-Min/FA/Lycopene/Lut (Centrum Silver Tablet) 1 Each Tablet 1 EACH PO DAILY (Reported) Nortriptyline (Nortriptyline) 10 Mg Capsule 10 MG PO HS (Reported) Pantoprazole DR (Protonix) 40 Mg Tablet 40 MG PO BID Prescribed by: ARIADNA SMITH MD Ranitidine (Ranitidine) 150 Mg Capsule 150 MG PO DAILY (Reported) Sertraline HCl (Zoloft) 50 Mg Tablet 100 MG PO DAILY (Reported) Tamsulosin (Flomax) 0.4 Mg Capsule 0.4 MG PO DAILY (Reported) As needed Chlorzoxazone (Chlorzoxazone) 500 Mg Tablet 500 MG PO TID PRN PRN For Spasm ( Reported) Diazepam (Valium) 5 Mg Tablet 5 MG PO BID PRN PRN For Anxiety (Reported) Diphenoxylate/Atropine 2.5-0.025 mg (Lomotil 2.5-0.025 mg) 1 Each Tablet 5 TAB PO DAILY PRN PRN For Diarrhea or Loose Stool (Reported) Furosemide (Furosemide) 40 Mg Tablet 40 MG PO DAILY PRN PRN edema (Reported) Ondansetron ODT (Ondansetron ODT) 8 Mg Tab.rapdis 8 TAB PO HS PRN PRN For Nausea /Vomiting (Reported) Oxycodone HCl/Acetaminophen 5-325 (Endocet 5-325) 1 Each Tablet 1 TABLET PO q4- 6h PRN PRN For Pain (Reported) Potassium Citrate ER (Potassium Citrate ER) 15 Meq Tablet 15 MEQ PO DAILY PRN PRN with furosemide (Reported) TAKE WITH FOOD Followup Plan Disposition: Patient is being discharged home. Discharge Diet: Heart Healthy Discharge Activity: No restrictions Follow-up Provider: Leonardo Bailey MD Follow-up with PCP in: 1 week Provider: Kellie Vazquez MD Follow-up in: 2 weeks Time spent Time spent on discharging this patient was greater than 35 minutes, over half of which was involved in counseling and coordination of care. Yung Smith MD Jan 14, 2017 00:21
== END 2017-01-13 15:30 | disposition home or self-care (01) ==
LOC: SED 08:49 → OSC 11:59
PROVIDERS: ADMIT Internal Medicine Infectious Disease; ATTEND Internal Medicine Infectious Disease
DX: K22.70 Barrett's esophagus without dysplasia (principal); C49.A0 Gastrointestinal stromal tumor, unspecified site; K92.0 Hematemesis; K21.9 Gastro-esophageal reflux disease without esophagitis; I10 Essential (primary) hypertension; I27.2 Other secondary pulmonary hypertension; G47.33 Obstructive sleep apnea (adult) (pediatric); F41.8 Other specified anxiety disorders; F43.10 Post-traumatic stress disorder, unspecified; I50.9 Heart failure, unspecified; K44.9 Diaphragmatic hernia without obstruction or gangrene; K76.9 Liver disease, unspecified; M54.5 Low back pain; Z87.442 Personal history of urinary calculi; Z79.82 Long term (current) use of aspirin; Z88.8 Allergy status to other drugs, medicaments and biological substances; Z87.891 Personal history of nicotine dependence; Z85.46 Personal history of malignant neoplasm of prostate; Z92.3 Personal history of irradiation
CPT/HCPCS: 36415; 43235; 80053; 81000; 83036; 83735; 84443; 85014; 85018; 85025; 85610; 86850; 96361; 96374; 99285; J7030

== ENCOUNTER 2017-01-19 09:37 | Emergency (ER) | payer OTHER ==
[~2017-01-19] VITALS: Ht 175.3 cm; Wt 101.2 kg
[~2017-01-19 09:37] MED LIST changes: +ATOR20TA PO; +CHLO500T24 PO; -CYCL10TA9 PO; -IMAT400T PO; -LIPA1CAP5 PO; -MODA200T13 PO; +NORT10CA PO; -NPR500T PO; -OMEP20CA11 PO; +ONDA8TAB10 PO; +OXYC-407 PO; +PANT40TA2 PO; +POTA15TA9 PO; -POTA20TA16 PO; -PRAV40TA PO; +TAMS0.4C98 PO
[2017-01-19 09:54] VITALS: BP 121/84; PULSE 87; RESP 16; O2SAT 98
--- NOTE | 2017-01-19 10:07 | ED.REPORT ---
HPI-GI Bleed Date of Service Jan 19, 2017 ED Provider: Faye Xiao MD 61 y/o male with a hx of GERD, Huerta's esophagus, prostate cancer s/p radiation, CHF, HTN, VERENA, hiatal hernia s/p RPR/Vagotomy, liver disease s/p partial liver resection and GIST tumor (s/p resection) presents to the ED complaining of pink diarrhea since yesterday. He states it started out as light pink and is now darker pink, without any clots. He denies red or black stool. The pt was admitted to the hospital last week for coffee ground emesis. The endoscopy did not show active bleeding and no old blood was appreciated. They recommended PPI twice a day and instructions to follow up with a GI. Associated sx include dizziness since being discharged from the hospital, intermittent urinary and fecal incontinence and abdominal pain earlier today that has now resolved. He has also not been eating properly but has maintained a high fluid intake. He denies other sx at this time, including fever. Nursing Notes Stated Complaint: RECTAL BLEEDING Chief Complaint: Male Abdominal Pain Nursing Notes Reviewed: Yes Allergies: Coded Allergies: cephalexin (Verified Allergy, Intermediate, lips swelled and itching, 01/12) Scheduled Aspirin (Aspirin) 81 Mg Tablet 81 MG PO DAILY Atorvastatin (Lipitor) 20 Mg Tablet 20 MG PO DAILY Cholecalciferol (Vitamin D3) (Vitamin D3) 1,000 Unit Tab.chew 1,000 UNIT PO DAILY Ferrous Sulfate (Ferrous Sulfate) 325 Mg Tablet 325 MG PO DAILY Gabapentin (Gabapentin) 300 Mg Capsule 300 MG PO TID Methylphenidate (Ritalin) 10 Mg Tablet 10 MG PO 5XD Multivits-Min/FA/Lycopene/Lut (Centrum Silver Tablet) 1 Each Tablet 1 EACH PO DAILY Nortriptyline (Nortriptyline) 10 Mg Capsule 10 MG PO HS Pantoprazole DR (Protonix) 40 Mg Tablet 40 MG PO BID Ranitidine (Ranitidine) 150 Mg Capsule 150 MG PO DAILY Sertraline HCl (Zoloft) 50 Mg Tablet 100 MG PO DAILY Tamsulosin (Flomax) 0.4 Mg Capsule 0.4 MG PO DAILY Scheduled PRN Chlorzoxazone (Chlorzoxazone) 500 Mg Tablet 500 MG PO TID PRN PRN For Spasm Diazepam (Valium) 5 Mg Tablet 5 MG PO BID PRN PRN For Anxiety Diphenoxylate/Atropine 2.5-0.025 mg (Lomotil 2.5-0.025 mg) 1 Each Tablet 5 TAB PO DAILY PRN PRN For Diarrhea or Loose Stool Furosemide (Furosemide) 40 Mg Tablet 40 MG PO DAILY PRN PRN edema Ondansetron ODT (Ondansetron ODT) 8 Mg Tab.rapdis 8 TAB PO HS PRN PRN For Nausea /Vomiting Oxycodone HCl/Acetaminophen 5-325 (Endocet 5-325) 1 Each Tablet 1 TABLET PO q4- 6h PRN PRN For Pain Potassium Citrate ER (Potassium Citrate ER) 15 Meq Tablet 15 MEQ PO DAILY PRN PRN with furosemide TAKE WITH FOOD General Time Seen by Provider: 10:01 Chief Complaint Chief Complaint: Other (pink diarrhea) Hx Obtained From: Patient Arrived By: Walk-in Onset Occurred: Yesterday Symptom Duration: Since onset Location: : Diffuse Quality: Painful Radiation: : Does not radiate Severity: Current: No pain currently Severity: Maximum: Moderate Recent Healthcare: Recent doctor visit, Recent hospitalization Similar Sx Previous: Yes Past Medical History Past Medical History GERD, Huerta's esophagus, prostate cancer s/p radiation, CHF, hypertension, VERENA, hiatal hernia s/p RPR/Vagotomy, liver disease s/p partial liver resection, kidney stones, back pain, anxiety, depression, GIST tumor, and gallbladder disease Past Surgical History T&A C6 ACDF Pilonidal cyst Hiatal hernia Right wrist surgery Liver resection Family History Noncontributory Smoking History Former Smoker Social History Other Social History: , Local resident Ambulatory Status Independent Review of Systems Constitutional: Denies: Fever GI: Reports: Diarrhea (pink), Denies: Melena Neurologic: Reports: Dizziness Complete sys rev & neg: except as marked. Male: Reports Incontinence (intermittent; urinary and fecal) Physical Exam Initial Vital Signs Vital Signs (First) Date Time Temp Pulse Resp B/P Pulse Ox O2 Delivery O2 Flow Rate FiO2 01/19/17 09:54 36.1 87 16 121/84 98 Room Air Initial VS: Reviewed Head / Eyes: Atraumatic, Normocephalic Neck: Supple, Non-tender, Full range of motion Extremities: Vascular intact, Neuro intact, No swelling, No tenderness Skin: Warm, Dry, No cyanosis Neurologic: Alert, Oriented, Nonfocal General/Constitutional: Awake, Alert, No acute distress, Cooperative Respiratory / Chest: Atraumatic, Breath sounds NL, Breath sounds = bilat, No respiratory distress, No rales, No rhonchi, No wheezing Cardiovascular: Heart rate NL, Regular rhythm, Heart sounds NL, No gallop, No murmurs, No rubs Abdomen: Atraumatic, Soft, Non-tender, No guarding, No rebound Rectum / Perineum: Atraumatic Rectal for Blood: Positive: Blood - occult heme + (faintly) No visible stool on glove Head / Eyes: Atraumatic, Normocephalic, PERRL No conjunctival pallor. Interpretation & Diagnostics Lab Results Interpretation Result Diagram: 01/19/17 1045 01/19/17 1045 Test 01/19/17 10:45 White Blood Count 6.4th/mm3 (3.8-10.1) Red Blood Count 3.88mil/mm3 (4.40-5.80) Hemoglobin 11.1g/dL (13.8-17.2) Hematocrit 34.9% (41.0-50.0) Mean Corpuscular Volume 89.9fL (81-100) Mean Corpuscular Hemoglobin 28.6pg (27.0-35.0) Mean Corpuscular Hemoglobin Concent 31.8% (32.0-37.0) Red Cell Distribution Width 14.1% (12.3-15.4) Platelet Count 265bil/L (150-400) Neutrophils (%) (Auto) 56.0% (40-74) Lymphocytes (%) (Auto) 26.6% (14-46) Monocytes (%) (Auto) 11.8% (4-12) Eosinophils (%) (Auto) 3.4% (0-5) Basophils (%) (Auto) 0.5% (0-3) Prothrombin Time 10.2sec (8.1-12.5) Prothromb Time International Ratio 0.95ratio Sodium Level 141mEq/L (134-144) Potassium Level 3.8mEq/L (3.5-5.2) Chloride Level 103mEq/L (97-108) Carbon Dioxide Level 22mmol/L (18-29) Blood Urea Nitrogen 13mg/dL (8-27) Creatinine 1.17mg/dL (0.76-1.27) Estimat Glomerular Filtration Rate 67mL/min (>59) Glucose Level 109mg/dL (60-99) Calcium Level 9.4mg/dL (8.5-10.1) Magnesium Level 1.8mg/dL (1.6-2.6) Total Bilirubin 0.2mg/dL (0.0-1.2) Aspartate Amino Transf (AST/SGOT) 22U/L (0-50) Alanine Aminotransferase (ALT/SGPT) 24U/L (0-44) Alkaline Phosphatase 108U/L (25-160) Total Protein 7.0g/dL (6.4-8.4) Albumin 3.8g/dL (3.4-5.0) Re-Eval/Medical Decision Med Decision/Clinical Course Several episodes of diarrhea overnight with no fevers and no abdominal pain, now resolved, no recent antibiotics, I am not concerned for C. difficile. Patient reports there is a pink tinge to which concerned him for bleeding. He is mildly Hemoccult positive. His hemoglobin is stable from his admission within the past week. Hit a recent EGD with no active bleeding, Huerta's esophagus, and had a change made to his medications with addition of by mouth Protonix. Patient strikes me as quite anxious and nervous, and in fact requests admission to the hospital because of his anxiety over this problem, however he is currently hemodynamically stable has had resolution of his diarrhea, and I am not concerned for life-threatening bleeding at this time. I did discuss return precautions with him. Source of Hx: Old records Re-Evaluation/Progress : Time of Eval: 11:57 Re-Evaluation/Progress Note: Discussed patient's results with him, stable hemoglobin normal at joints. Patient reports that he would feel more comfortable if he stayed in the emergency department given that he had coffee-ground emesis last week, and these episodes of diarrhea overnight last night. I discussed with him I did not think that was necessary at this time, and that he was safe for discharge with primary care follow-up and listed symptoms worsened or he developed new symptoms. He reports "I academically disagree with you, but I trust you." F/U instructions and RTER warning given. All questions addressed. Counseled Regarding: Diagnosis, Lab results, Need for follow-up, When/why to return to ED Discharge & Departure Impression: Primary Impression: Diarrhea Diarrhea type: unspecified type Qualified Code: R19.7 - Diarrhea, unspecified Disposition: Home Discharge Condition All VS Reviewed: Yes Condition: Stable Additional Instructions: Thank you for entrusting us with your care today. Your labs were reassuring. No dangerous cause of your symptoms was found. Your hemoglobin is in fact higher than it was when he were admitted last week. Continue to take your Protonix. Follow up with the primary care provider at [facility] for further evaluation. Return to the emergency department in case of worsening diarrhea, fevers, abdominal pain, dizziness or if you notice blood in your stool or for any other new or concerning symptoms. Referrals: Leonardo Bailey MD (PCP) [facility] Scribe Attestation Portions of this note were transcribed by Tom Monterroso. I,, personally performed the history, physical exam and medical decision-making;I reviewed and confirmed the accuracy of the information in the transcribed note. Signed by Sean Wakefield. 01/19/17 12:02 copies to: Leonardo Bailey MD; [facility] Faye Xiao MD Jan 19, 2017 10:07 Tom Monterroso Jan 19, 2017 10:14
[2017-01-19] MEDS ORDERED: 0.9% Sodium Chloride 1,000 ML IV ONE (10:20)
[2017-01-19 10:55] VITALS: BP 129/72; PULSE 65; RESP 12; O2SAT 100
[2017-01-19 11:12] LABS: Mean Corpuscular Hemoglobin 28.6 pg (27.0-35.0); Mean Corpuscular Volume 89.9 fL (81-100); Platelet Count 265 bil/L (150-400)
[2017-01-19 11:13] LABS: BASOPHILS % (AUTO) 0.5 % (0-3); EOSINOPHILS % (AUTO) 3.4 % (0-5); MONOCYTES % (AUTO) 11.8 % (4-12)
[2017-01-19 11:33] LABS: INR 0.95 ratio
[2017-01-19 11:39] LABS: Magnesium 1.8 mg/dL (1.6-2.6)
[2017-01-19 12:07] VITALS: BP 112/85; PULSE 70; RESP 22; O2SAT 100
[2017-01-19 14:02] VITALS: BP 140/97; PULSE 72; RESP 17; O2SAT 100
== END 2017-01-19 14:07 | disposition home or self-care (01) ==
LOC: SED 09:37
DX: R19.7 Diarrhea, unspecified (principal); R42 Dizziness and giddiness; R32 Unspecified urinary incontinence; R15.9 Full incontinence of feces; I11.0 Hypertensive heart disease with heart failure; I50.9 Heart failure, unspecified; K21.9 Gastro-esophageal reflux disease without esophagitis; F41.8 Other specified anxiety disorders; Z87.442 Personal history of urinary calculi; Z98.890 Other specified postprocedural states; Z79.82 Long term (current) use of aspirin; Z87.891 Personal history of nicotine dependence; Z88.1 Allergy status to other antibiotic agents
CPT/HCPCS: 36415; 80053; 83735; 85025; 85610; 86850; 96360; 96361; 99284; J7030

== ENCOUNTER 2017-02-02 19:45 | Inpatient (IN) | payer OTHER ==
[~2017-02-02] VITALS: Ht 175.3 cm; Wt 95.8 kg
[2017-02-02 20:17] VITALS: BP 130/84; PULSE 90; RESP 12; O2SAT 96
[2017-02-02 21:19] LABS: BASOPHILS % (AUTO) 0.4 % (0-3); EOSINOPHILS % (AUTO) 0.9 % (0-5); Mean Corpuscular Volume 87.1 fL (81-100); NEUTROPHILS % (AUTO) 67.1 % (40-74); Platelet Count 314 bil/L (150-400)
[2017-02-02 21:33] LABS: INR 0.98 ratio
--- NOTE | 2017-02-02 21:55 | ED.REPORT ---
HPI-GI Bleed Date of Service Feb 02, 2017 ED Provider: Michael Benson MD A 61 year old male with a history of GERD, prostate cancer s/p radiation, CHF, hypertension, hiatal hernia, partial liver and stomach resection, kidney stones , anxiety, depression, GI stromal tumor, and gallbladder disease presents to the ED complaining of rectal bleeding. The pt began experiencing watery diarrhea with a significant amount of blood in it at 16:30 today. He has had frequent episodes of bloody diarrhea since in addition to LLQ abdominal pain and anxiety. The pt has been NPO for four days. He was seen for hematemesis three weeks ago and rectal bleeding two weeks ago. Nursing Notes Stated Complaint: RECTAL BLEEDING Chief Complaint: General Complaint Nursing Notes Reviewed: Yes Allergies: Coded Allergies: cephalexin (Verified Allergy, Intermediate, lips swelled and itching, 01/12) Scheduled Aspirin (Aspirin) 81 Mg Tablet 81 MG PO DAILY Atorvastatin (Lipitor) 20 Mg Tablet 20 MG PO DAILY Cholecalciferol (Vitamin D3) (Vitamin D3) 1,000 Unit Tab.chew 1,000 UNIT PO DAILY Ferrous Sulfate (Ferrous Sulfate) 325 Mg Tablet 325 MG PO DAILY Gabapentin (Gabapentin) 300 Mg Capsule 300-600 MG PO TID Methylphenidate (Ritalin) 10 Mg Tablet 10 MG PO Q4 Multivits-Min/FA/Lycopene/Lut (Centrum Silver Tablet) 1 Each Tablet 1 EACH PO DAILY Pantoprazole DR (Protonix) 40 Mg Tablet 40 MG PO BID Ranitidine (Ranitidine) 150 Mg Capsule 150 MG PO HS Sertraline HCl (Zoloft) 50 Mg Tablet 100 MG PO DAILY Tamsulosin (Flomax) 0.4 Mg Capsule 0.4 MG PO DAILY Scheduled PRN Chlorzoxazone (Chlorzoxazone) 500 Mg Tablet 500 MG PO TID PRN PRN For Spasm Diazepam (Valium) 5 Mg Tablet 15 MG PO BID PRN PRN For Anxiety Diphenoxylate/Atropine 2.5-0.025 mg (Lomotil 2.5-0.025 mg) 1 Each Tablet 5 TAB PO DAILY PRN PRN For Diarrhea or Loose Stool Furosemide (Furosemide) 40 Mg Tablet 40 MG PO DAILY PRN PRN edema Ondansetron ODT (Ondansetron ODT) 8 Mg Tab.rapdis 8 TAB PO HS PRN PRN For Nausea /Vomiting Oxycodone HCl/Acetaminophen 5-325 (Endocet 5-325) 1 Each Tablet 1 TABLET PO q4- 6h PRN PRN For Pain Potassium Citrate ER (Potassium Citrate ER) 15 Meq Tablet 15 MEQ PO DAILY PRN PRN with furosemide TAKE WITH FOOD General Time Seen by Provider: 21:51 Chief Complaint Chief Complaint: Other (Rectal bleeding) Hx Obtained From: Patient Arrived By: Walk-in Onset Occurred: 5 - 8 hours ago Symptom Duration: Since onset Recent Healthcare: No recent hospitalization, Recent doctor visit Similar Sx Previous: No Past Medical History Past Medical History GERD, Huerta's esophagus, prostate cancer s/p radiation, CHF, hypertension, VERENA, hiatal hernia s/p RPR/Vagotomy, liver disease s/p partial liver resection, kidney stones, back pain, anxiety, depression, GI stromal tumor, and gallbladder disease Past Surgical History T&A C6 ACDF Pilonidal cyst Hiatal hernia Right wrist surgery Liver resection Family History Noncontributory Smoking History Former Smoker Social History Other Social History: , Local resident Ambulatory Status Independent Review of Systems Review of Systems Note: rectal bleeding Constitutional: Denies: Fever Respiratory: Denies: Non-productive cough, Shortness of breath Cardiovascular: Denies: Chest pain GI: Reports: Abdominal pain, Diarrhea, Denies: Vomiting Skin: Denies Rash Complete sys rev & neg: except as marked. Musculoskeletal: Denies: Extremity pain, Neck pain Psychiatric: Reports: Anxiety Physical Exam Initial Vital Signs Vital Signs (First) Date Time Temp Pulse Resp B/P Pulse Ox O2 Delivery O2 Flow Rate FiO2 02/02/17 20:17 36.6 90 12 130/84 96 02/03/17 01:23 Room Air Initial VS: Reviewed, Vital signs normal General/Constitutional: Awake, Alert trembling hyperventilating Respiratory / Chest: Atraumatic, Breath sounds NL, Breath sounds = bilat, No respiratory distress Cardiovascular: Heart rate NL, Regular rhythm, Heart sounds NL Abdomen: Atraumatic, Soft, Non-tender Rectum / Perineum: Atraumatic stool light red and liquid guaiac positive Head / Eyes: Atraumatic, Normocephalic, PERRL, EOMI ENT: Atraumatic, Airway patent, Mucous membranes moist Skin Skin: Atraumatic, Color NL, No rash, Warm diaphoretic Neurologic: Oriented X3, Speech NL, No motor deficits, No sensory deficits Neck: Atraumatic, Supple, Full range of motion Back: Atraumatic, Full range of motion Upper Extremity / MS: Atraumatic, Full range of motion Lower Extremity / Pelvis / MS: Atraumatic, Full range of motion Psychiatric: Affect NL Abnormal Mood/Affect: Positive: Anxious agitated Interpretation & Diagnostics Lab Results Interpretation Result Diagram: 02/03/17 1540 02/03/17 0425 Test 02/02/17 21:15 02/02/17 21:16 White Blood Count 10.6th/mm3 (3.8-10.1) Red Blood Count 4.58mil/mm3 (4.40-5.80) Mean Corpuscular Volume 87.1fL (81-100) Mean Corpuscular Hemoglobin 29.0pg (27.0-35.0) Mean Corpuscular Hemoglobin Concent 33.3% (32.0-37.0) Red Cell Distribution Width 13.6% (12.3-15.4) Platelet Count 314bil/L (150-400) Neutrophils (%) (Auto) 67.1% (40-74) Lymphocytes (%) (Auto) 22.1% (14-46) Monocytes (%) (Auto) 9.0% (4-12) Eosinophils (%) (Auto) 0.9% (0-5) Basophils (%) (Auto) 0.4% (0-3) Prothrombin Time 10.5sec (8.1-12.5) Prothromb Time International Ratio 0.98ratio Magnesium Level 1.9mg/dL (1.6-2.6) Total Bilirubin 0.4mg/dL (0.0-1.2) Aspartate Amino Transf (AST/SGOT) 35U/L (0-50) Alanine Aminotransferase (ALT/SGPT) 35U/L (0-44) Alkaline Phosphatase 138U/L (25-160) Total Protein 8.1g/dL (6.4-8.4) Albumin 4.5g/dL (3.4-5.0) Hold Decker Top Tube Received (Received) ECG Interpretation ECG Interpretation: normal sinus rhythm with a rate of 66 low voltage, precordial leads Time: 23:11 Interpreted by: ED physician CT Abd / Pelvis Interpretation CONCLUSION: 1. Rectal wall thickening may be related to underdistention or proctitis. There is liquid density stool throughout the colon consistent with malabsoption/diarrhea. 2. Normal appendix. No free air, abscess, or bowel obstruction. 3. Bladder wall thickening may be related to underdistention. Correlate with urinalysis if there is clinical concern for infection. No hydronephrosis. Renal cysts. Nonobstructive left renal stones. 4. Fatty liver. Interpretation / Wet Read by: Interpret - Radiologist Re-Eval/Medical Decision Med Decision/Clinical Course 61-year-old male with blood tinged liquid diarrhea. His vital signs are unremarkable. CT suggests enteritis but is not very specific. He will be admitted to the hospital for further evaluation and treatment. Re-Evaluation/Progress : Time of Eval: 01:40 Patient Status: Condition improved Re-Evaluation/Progress Note: Pt rechecked, who is resting comfortably. The diagnosis and plan for admission are discussed. The pt understands and agrees with the plan. All questions are addressed at this time. Consultation : Referral / Consult Name: Maureen Laurent DO Consulted With: Hospitalist Call Returned at: 02:47 Fabric Finisher: Agrees with eval, Agrees with plan, Accepts admit Note: Spoke with Dr. Laurent, hospitalist, regarding pt's case. Dr. Laurent agrees with the evaluation and agrees to admit the pt. Counseled Regarding: Diagnosis, Lab results, Need for admission Discharge & Departure Impression: Primary Impression: Bloody diarrhea Disposition: ADMITTED TO HOSPITAL Discharge Condition All VS Reviewed: Yes Condition: Stable Referrals: Kelsey Ervin MD (PCP) Scribe Attestation Portions of this note were transcribed by Jairo Addison. I, Dr. Benson personally performed the history, physical exam and medical decision-making; I reviewed and confirmed the accuracy of the information in the transcribed note. copies to: Kelsey Ervin MD, Michael Wilson MD Feb 02, 2017 21:55 JAIRO ADDISON Feb 02, 2017 22:14 CONCLUSION: 1. Rectal wall thickening may be related to underdistention or proctitis. There is liquid density stool throughout the colon consistent with malabsoption/diarrhea. 2. Normal appendix. No free air, abscess, or bowel obstruction. 3. Bladder wall thickening may be related to underdistention. Correlate with urinalysis if there is clinical concern for infection. No hydronephrosis. Renal cysts. Nonobstructive left renal stones. 4. Fatty liver. Interpretation / Wet Read by: Interpret - Radiologist Re-Eval/Medical Decision Re-Evaluation/Progress : Time of Eval: 01:40 Patient Status: Condition improved Re-Evaluation/Progress Note: Pt rechecked, who is resting comfortably. The diagnosis and plan for admission are discussed. The pt understands and agrees with the plan. All questions are addressed at this time. Consultation : Referral / Consult Name: Maureen Laurent DO Consulted With: Hospitalist Call Returned at: 02:47 Fabric Finisher: Agrees with eval, Agrees with plan, Accepts admit Note: Spoke with Dr. Laurent, hospitalist, regarding pt's case. Dr. Laurent agrees with the evaluation and agrees to admit the pt. Counseled Regarding: Diagnosis, Lab results, Need for admission Discharge & Departure Impression: Primary Impression: Bloody diarrhea Disposition: ADMITTED TO HOSPITAL Discharge Condition All VS Reviewed: Yes Condition: Stable Referrals: Kelsey Erivn MD (PCP) Scribe Attestation Portions of this note were transcribed by Jairo Addison. I, Dr. Benson personally performed the history, physical exam and medical decision-making; I reviewed and confirmed the accuracy of the information in the transcribed note. copies to: Kelsey Ervin MD, Howard L MD Feb 02, 2017 21:55 JAIRO ADDISON Feb 02, 2017 22:14
[2017-02-02] MEDS ORDERED: 0.9% Sodium Chloride 1,000 ML IV ONE (22:14)
[2017-02-03] VITALS (8 sets, daily range): BP systolic 107–163; BP diastolic 68–92; PULSE 59–79; RESP 16–20; O2SAT 96–100
[2017-02-03] MEDS ORDERED: Ondansetron 2 mg/mL 2 mL Inj IVPUSH PRN (02:50)
[2017-02-03] MEDS ORDERED: Polyethylene Glycol (PEG) 17 Gm Powder PO PRN (02:50)
[2017-02-03] MEDS ORDERED: Alum-Mag Hydrox-Simeth 30 mL Suspension PO PRN (02:50)
[2017-02-03] MEDS: 0.9% Sodium Chloride 1,000 ML IV SCH ×3 (03:39→22:49)
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
[2017-02-03] MEDS ORDERED: DiphenOXYlate-Atropine 2.5 mg-0.025 mg Tablet PO PRN (04:45)
--- NOTE | 2017-02-03 05:15 | NUR ---
Admit Patient admitted to room 3007 at 0325 from ED. Alert and oriented. Med list updated by patient recall. Telemetry connected. Clear liquids. Signed property waiver. Allergy sticker applied. Oriented to room, call light, plan of care, policies, intentional rounding. IV fluids infusing as ordered, white board updated with plan of care.
[2017-02-03] MEDS ORDERED: Potassium Chloride 20 mEq SR Tablet PO ONE (08:10)
--- NOTE | 2017-02-03 08:34 | PCM.PNMED ---
Subjective Date of Service Feb 03, 2017 Subjective Patient is complaining of some lower abdominal pain. He notes about 3 hours ago he had another bowel movement which had less blood in it. Exam Vital Signs Vital Sign - Last Date Time Temp Pulse Resp B/P Pulse Ox O2 Delivery O2 Flow Rate FiO2 02/03/17 06:05 36.4 60 16 146/68 98 Room Air Exam Constitutional: Middle-aged male in no acute distress Head: Normocephalic atraumatic Chest: Clear to auscultation Cor: Regular rate and rhythm S1-S2 without murmur Abdomen: Soft bowel sounds present mild tenderness left lower quadrant. No rebound no guarding Extremities: No pedal edema Psych: Mood and affect are appropriate patient is quite talkative Skin: No rashes Neuro: Alert and oriented 3, motor strength is intact bilaterally IVs and Medications Medications Reviewed: Medications were reviewed in detail Lab and Diagnostics Laboratory Tests 72 Hours Test 02/02/17 21:15 02/02/17 21:16 02/03/17 04:25 White Blood Count 10.6th/mm3 (3.8-10.1) Red Blood Count 4.58mil/mm3 (4.40-5.80) Hemoglobin 13.3g/dL (13.8-17.2) 11.2g/dL (13.8-17.2) Hematocrit 39.9% (41.0-50.0) 33.9% (41.0-50.0) Mean Corpuscular Volume 87.1fL (81-100) Mean Corpuscular Hemoglobin 29.0pg (27.0-35.0) Mean Corpuscular Hemoglobin Concent 33.3% (32.0-37.0) Red Cell Distribution Width 13.6% (12.3-15.4) Platelet Count 314bil/L (150-400) Neutrophils (%) (Auto) 67.1% (40-74) Lymphocytes (%) (Auto) 22.1% (14-46) Monocytes (%) (Auto) 9.0% (4-12) Eosinophils (%) (Auto) 0.9% (0-5) Basophils (%) (Auto) 0.4% (0-3) Prothrombin Time 10.5sec (8.1-12.5) Prothromb Time International Ratio 0.98ratio Sodium Level 145mEq/L (134-144) 144mEq/L (134-144) Potassium Level 3.6mEq/L (3.5-5.2) 3.2mEq/L (3.5-5.2) Chloride Level 106mEq/L (97-108) 107mEq/L (97-108) Carbon Dioxide Level 19mmol/L (18-29) 21mmol/L (18-29) Blood Urea Nitrogen 13mg/dL (8-27) 12mg/dL (8-27) Creatinine 1.28mg/dL (0.76-1.27) 1.10mg/dL (0.76-1.27) Estimat Glomerular Filtration Rate 61mL/min (>59) 72mL/min (>59) Glucose Level 109mg/dL (60-99) 107mg/dL (60-99) Calcium Level 9.9mg/dL (8.5-10.1) 9.0mg/dL (8.5-10.1) Magnesium Level 1.9mg/dL (1.6-2.6) Total Bilirubin 0.4mg/dL (0.0-1.2) Aspartate Amino Transf (AST/SGOT) 35U/L (0-50) Alanine Aminotransferase (ALT/SGPT) 35U/L (0-44) Alkaline Phosphatase 138U/L (25-160) Total Protein 8.1g/dL (6.4-8.4) Albumin 4.5g/dL (3.4-5.0) Hold Decker Top Tube Received (Received) Result Diagram: 02/03/17 0425 02/03/17 0425 X-Rays, CTs and MRIs Preliminary report: CT Abd / Pelvis Interpretation CONCLUSION: 1. Rectal wall thickening may be related to underdistention or proctitis. There is liquid density stool throughout the colon consistent with malabsoption/ diarrhea. 2. Normal appendix. No free air, abscess, or bowel obstruction. 3. Bladder wall thickening may be related to underdistention. Correlate with urinalysis if there is clinical concern for infection. No hydronephrosis. Renal cysts. Nonobstructive left renal stones. 4. Fatty liver. Interpretation / Wet Read by: Interpret - Radiologist Assessment & Plan Dylan Anderson is a 61 year old man with past medical history significant for GIST tumor post resection, GERD, Huerta's esophagus, hypertension, VERENA, and CHF , prostate cancer status post 9 weeks radiation with completion in the end of December 2016, who presented to the [facility] emergency department due to rectal bleeding that started earlier today. Hematochezia, present on admission, active -likely acute radiation proctitis however acute infectious source not ruled out -Patient's most recent treatment was on December 21 with external beam radiation -He states that his symptoms started after his last radiation treatment -Stool PCR to rule out infectious etiology ordered. -Mention of bladder wall thickening which does raise concern for possible rectovesicular fistula. Will order UA. If there is further concern consider MRI. -Dr. Heard, gastroenterology, was contacted and recommended sucralfate enemas twice a day can take several days to note significant improvement. He also recommended if there is increase in bleeding to notify him. -Morphine PRN pain Lower GI bleed with likely acute blood loss anemia, likely secondary to proctitis, present on admission, active -Trend HH, transfuse for Hgb <7 -IVF NS @100 cc/hr -GI consultation as above. -Clear liquid diet, no reds Mild acute kidney injury, present on admission, resolved -Baseline Cr around 1, likely secondary to mild prerenal azotemia from diarrhea and poor PO intake -Continue to monitor, IVF as above History of GIST, present on admission, active - History of liver involvement with partial liver resection - Patient to follow-up with his oncologist as scheduled GERD with Huerta's esophagus, present on admission. Active - Continue Protonix Prostate cancer, present on admission, active - s/p radiation therapy treatment which has been completed - Patient now on hormonal therapy. - Patient is to follow-up with oncology as scheduled Hypertension, present on admission, stable - Continue home medications - Monitor closely VERENA with pulmonary hypertension complicated by history of right-sided heart failure and bilateral leg edema, present on admission, stable - Continue CPAP at night History of hiatal hernia s/p RPR/Vagotomy, present on admission, stable - Continue proton pump inhibitor Anxiety, depression and PTSD, present on admission, active - Patient states that he is currently seeing a counselor and will need to continue to do so as an outpatient. - Continue outpatient medications Fatty liver CODE STATUS: Full code Patient is admitted under inpatient status with expected length of stay greater than 2 midnights due to severity of presenting symptoms, risk of adverse event, and complexity of treatment plan. VTE Prophylaxis: SCDs Resuscitation Status: CPR: Attempt Resuscitation Time spent 30 minutes Kori Mckeon MD Feb 03, 2017 08:34
--- NOTE | 2017-02-03 08:43 | DRSVH ---
PROCEDURE: CT ABDOMEN AND PELVIS WITH CONTRAST ([id number]) INDICATIONS: LLQ abd pain, rectal bleeding TECHNIQUE: After the administration of intravenous contrast, 5 mm thick sections acquired from the diaphragm to the symphysis. 5 mm coronal and sagittal reformats were acquired. For radiation dose reduction, the following was used: automated exposure control, adjustment of mA and/or kV according to patient siz e. COMPARISON: None. FINDINGS: Image quality: Excellent. ABDOMEN: Lung bases: Lung bases are clear. Heart size is normal. Solid organs: Liver and spleen are normal in size and enhancement. Gallbladder is surgically absent . Biliary system is non dilated. Pancreas enhances normally. No adrenal nodules. Kidneys demonstr ate normal size and enhancement, without hydronephrosis. There is a nonobstructing 2 x 3 mm lower th ird collecting system calculus on the left. Peritoneum and bowel: Bowel loops demonstrate normal wall thickness and caliber. No free fluid or a ir. Nodes and vessels: No retroperitoneal or mesenteric adenopathy by size criteria. Aorta and inferior vena cava are normal in size. Miscellaneous: No ventral hernias. PELVIS: Genitourinary: Bladder wall thickness is normal. Miscellaneous: No inguinal hernias or adenopathy. Normal appendix found. Formed stool is not seen within the right or left colon. Bones: No suspicious bony lesions. No vertebral body compression fractures. IMPRESSION: A definite source of current symptoms is not seen. Acute or chronic diverticulitis is no t identified. Note is made of absence of formed stool within the colon on the right and left, with l iquid content, which may reflect presence of enteritis but no mural thickening is seen that would ind icate likelihood of colonic wall inflammation. Prior cholecystectomy. Additional surgical clips adjacent to the gastric margin perhaps reflecting a prior gastric reduction surgery. Normal appendix is appears present at the right lower quadrant wit hout adjacent inflammation. Nonobstructive 2 x 3 mm inferior left renal collecting system calculus i ncidentally noted. Dictated by: Samir Chen M.D. on 02/03/2017 at 8:37 Approved by: Samir Chen M.D. on 02/03/2017 at 8:41
[2017-02-03] MEDS: Pantoprazole 40 mg ER24 Tablet PO SCH ×2 (08:52→22:45)
[2017-02-03] MEDS: Sucralfate 100 mg/mL 10 mL Suspension RECTAL SCH ×2 (10:24→22:45)
--- NOTE | 2017-02-03 11:15 | NUR ---
Transfer to [facility] Pt transferred to [facility], room 1023 this morning. Report given to Radha Muse RN. Pt A&Ox4, denies any pain/discomfort prior to transfer. All belongings sent with pt including cell phone and set up and charger.
--- NOTE | 2017-02-03 11:52 | NUR ---
Social Work: Screening Data: Pt is a 61 y/o male admitted for GI bleed, anxiety. Pt's PCP is Dr Ervin, pt's insurance is [facility]. EMR reviewed. Pt discussed in multidisciplinary rounds, MD states pt likely to remain in hospital at least 2 more days. Readmit score not listed. Pt is a recent readmit. No d/c planning needs identified at this time. CONTROL CLERK HEAD will continue to follow if needs arise. Assessment: Pt who is independent at baseline, currently capable of self care. Plan: Pt will likely d/c home via POV when medically stable. No d/c planning needs identified at this time. CONTROL CLERK HEAD will continue to follow if needs arise. REE Solomon
[2017-02-03 12:53] LABS: APPEARANCE,URINE CLEAR (CLEAR,HAZY); COLOR,URINE YELLOW (YELLOW); OCCULT BLOOD,URINE NEGATIVE (NEGATIVE); UROBILINOGEN,URINE NORMAL (NORMAL)
--- NOTE | 2017-02-03 16:10 | NUR ---
Transfer from [facility] Pt transferred in w/c from [facility] to room 1023. Able to ambulate safely in room independently. Pt on RA, IV NS 100. Pain 5/10. Able to provide UA sample. VSS, PIEDRA, A&O x 3. One episode of loose stools after arrival was yellow and less than 50cc. Guaiac sample obtained. Oriented to room, call light and given juice. Continue q1 hour rounding.
[2017-02-04 00:03] VITALS: BP 109/67; PULSE 67; RESP 20; O2SAT 96
[2017-02-04 04:36] VITALS: BP 113/73; PULSE 61; RESP 16; O2SAT 95
[2017-02-04] MEDS: 0.9% Sodium Chloride 1,000 ML IV SCH ×2 (04:51→18:49)
--- NOTE | 2017-02-04 06:45 | NUR ---
Pain/Enema c/o pain x2 this shift. Prn pain medication administered and effective. Currently resting without any complaints. Refused HS enema stating he did not think he needed it. No BM noted over night and no lower GI bleeding reported.
[2017-02-04] MEDS: Pantoprazole 40 mg ER24 Tablet PO SCH ×2 (11:09→21:20)
[2017-02-04] MEDS: Sucralfate 100 mg/mL 10 mL Suspension RECTAL SCH ×2 (11:19→23:05)
--- NOTE | 2017-02-04 12:04 | PCM.PNMED ---
Subjective Date of Service Feb 04, 2017 Subjective No bloody BM overnight. Refused Sucrafate overnight. Exam Vital Signs Vital Sign - Last Date Time Temp Pulse Resp B/P Pulse Ox O2 Delivery O2 Flow Rate FiO2 02/04/17 04:36 36.4 61 16 113/73 95 Room Air Intake and Output 02/03/17 02/03/17 02/04/17 Cumulative From/Thru 15:00 23:00 07:00 02/02/17 20:17 - 02/04/17 06:27 Intake Total 645 ml 1315 ml 350 ml 2310 ml Balance 645 ml 1315 ml 350 ml 2310 ml Intake Oral 820 ml 350 ml 1170 ml IV Total 645 ml 495 ml 1140 ml # Voids 1 1 2 # Bowel Movements 1 1 Exam Constitutional: Middle-aged male in no acute distress Head: Normocephalic atraumatic Chest: Clear to auscultation Cor: Regular rate and rhythm S1-S2 without murmur Abdomen: Soft bowel sounds present mild tenderness left lower quadrant. No rebound no guarding Extremities: No pedal edema Psych: Mood and affect are appropriate patient is quite talkative Skin: No rashes Neuro: Alert and oriented 3, motor strength is intact bilaterally IVs and Medications Medications Reviewed: Medications were reviewed in detail Lab and Diagnostics Result Diagram: 02/03/17 1540 02/03/17 0425 X-Rays, CTs and MRIs Preliminary report: CT Abd / Pelvis Interpretation CONCLUSION: 1. Rectal wall thickening may be related to underdistention or proctitis. There is liquid density stool throughout the colon consistent with malabsoption/ diarrhea. 2. Normal appendix. No free air, abscess, or bowel obstruction. 3. Bladder wall thickening may be related to underdistention. Correlate with urinalysis if there is clinical concern for infection. No hydronephrosis. Renal cysts. Nonobstructive left renal stones. 4. Fatty liver. Interpretation / Wet Read by: Interpret - Radiologist Assessment & Plan Dylan Anderson is a 61 year old man with past medical history significant for GIST tumor post resection, GERD, Huerta's esophagus, hypertension, VERENA, and CHF , prostate cancer status post 9 weeks radiation with completion in the end of December 2016, who presented to the [facility] emergency department due to rectal bleeding that started earlier today. Hematochezia, present on admission, active -likely acute radiation proctitis however acute infectious source not ruled out -Patient's most recent treatment was on December 21 with external beam radiation -He states that his symptoms started after his last radiation treatment -Stool PCR to rule out infectious etiology- negative. -Mention of bladder wall thickening which does raise concern for possible rectovesicular fistula. Will order UA. If there is further concern consider MRI. -Dr. Heard, gastroenterology, was contacted and recommended sucralfate enemas twice a day can take several days to note significant improvement. He also recommended if there is increase in bleeding to notify him. -Morphine PRN pain - 8/5- pt refused Sucrafate. No overnight bloody BM's. Hb has been stable. not requiring transfusion. acute blood loss anemia, likely secondary LGIB due to proctitis, present on admission, active -Trend HH, transfuse for Hgb <7 -IVF NS @100 cc/hr -Hb has been stable. -Clear liquid diet, advance as tolerated to GI Soft. Prostate cancer, present on admission, active - s/p radiation therapy treatment which has been completed - Patient now on hormonal therapy. - Patient is to follow-up with oncology as scheduled Mild acute kidney injury, present on admission, resolved -Baseline Cr around 1, likely secondary to mild prerenal azotemia from diarrhea and poor PO intake -Continue to monitor, IVF as above History of GIST, present on admission, active - History of liver involvement with partial liver resection - Patient to follow-up with his oncologist as scheduled GERD with Huerta's esophagus, present on admission. Active - Continue Protonix PO BID. Hypertension, present on admission, stable - Continue home medications - Monitor closely VERENA with pulmonary hypertension complicated by history of right-sided heart failure and bilateral leg edema, present on admission, stable - Continue CPAP at night History of hiatal hernia s/p RPR/Vagotomy, present on admission, stable - Continue proton pump inhibitor Anxiety, depression and PTSD, present on admission, active - Patient states that he is currently seeing a counselor and will need to continue to do so as an outpatient. - Continue outpatient medications Fatty liver, chronic, stable. Dispo- Patient is admitted under inpatient status with expected length of stay greater than 2 midnights due to severity of presenting symptoms, risk of adverse event, and complexity of treatment plan. VTE Prophylaxis: SCDs VTE Mechanical Devices: Intermittant Pneumatic CD Resuscitation Status: CPR: Attempt Resuscitation James Ling MD Feb 04, 2017 12:04
[2017-02-04 13:48] VITALS: BP 134/84; PULSE 84; RESP 16; O2SAT 96
--- NOTE | 2017-02-04 18:29 | NUR ---
Activity Pt able to advance diet to general w/o any N/V or increased diarrhea. Pt only had two loose, green BM's after carafate enema given. Able to switch to PO pain medications w/o increase in pain, baseline his pain was consistently 6/10 even with IV medications earlier in day. Pt is drinking plenty of fluids and IV was s/l during shift. Pt ambulating independently in room. Bed in low, call light in reach, care continues.
[2017-02-04 20:58] VITALS: BP 131/77; PULSE 82; RESP 20; O2SAT 95
[2017-02-05 00:13] VITALS: BP 128/77; PULSE 68; RESP 20; O2SAT 97
--- NOTE | 2017-02-05 01:27 | NUR ---
GI Carafate enema given tonight. 2 very small dark brown liq stools. No blood visualized. Denies nausea.
[2017-02-05] MEDS: Sodium Chloride LOK Flush 10 mL Syringe IVFLUSH SCH ×2 (01:39→09:32)
[2017-02-05] MEDS: 0.9% Sodium Chloride 1,000 ML IV SCH (02:21)
[2017-02-05 04:58] VITALS: BP 146/84; PULSE 65; RESP 20; O2SAT 96
[2017-02-05 06:35] LABS: BASOPHILS % (AUTO) 0.4 % (0-3); EOSINOPHILS % (AUTO) 3.5 % (0-5); MONOCYTES % (AUTO) 6.8 % (4-12); Mean Corpuscular Hemoglobin 28.8 pg (27.0-35.0); Mean Corpuscular Volume 90.3 fL (81-100); NEUTROPHILS % (AUTO) 72.3 % (40-74); Platelet Count 202 bil/L (150-400)
--- NOTE | 2017-02-05 09:11 | PCM.PNMED ---
Subjective Date of Service Feb 05, 2017 Subjective Patient had 2 small bowel movements overnight. Appeared nonbloody. Exam Vital Signs Vital Sign - Last Date Time Temp Pulse Resp B/P Pulse Ox O2 Delivery O2 Flow Rate FiO2 02/05/17 04:58 36.6 65 20 146/84 96 Room Air Intake and Output 02/04/17 02/04/17 02/05/17 Cumulative From/Thru 15:00 23:00 07:00 02/02/17 20:17 - 02/05/17 06:07 Intake Total 2795 ml 880 ml 5985 ml Output Total 200 ml 100 ml 300 ml Balance 2595 ml 780 ml 5685 ml Intake Oral 1062 ml 880 ml 3112 ml IV Total 1733 ml 2873 ml Output Stool Total 200 ml 100 ml 300 ml # Voids 2 3 7 # Bowel Movements 2 3 Exam Constitutional: NAD, AOX3. Head: Normocephalic atraumatic Chest: Clear to auscultation Cor: Regular rate and rhythm S1-S2 without murmur Abdomen: +BS, NT/ND, No rebound no guarding Extremities: No pedal edema Psych: Mood and affect are appropriate patient is quite talkative Skin: No rashes Neuro: Alert and oriented 3, motor strength is intact bilaterally IVs and Medications Medications Reviewed: Medications were reviewed in detail Lab and Diagnostics Result Diagram: 02/05/17 0602/05/17 06 X-Rays, CTs and MRIs Preliminary report: CT Abd / Pelvis Interpretation CONCLUSION: 1. Rectal wall thickening may be related to underdistention or proctitis. There is liquid density stool throughout the colon consistent with malabsoption/ diarrhea. 2. Normal appendix. No free air, abscess, or bowel obstruction. 3. Bladder wall thickening may be related to underdistention. Correlate with urinalysis if there is clinical concern for infection. No hydronephrosis. Renal cysts. Nonobstructive left renal stones. 4. Fatty liver. Interpretation / Wet Read by: Interpret - Radiologist Assessment & Plan Dylan Anderson is a 61 year old man with past medical history significant for GIST tumor post resection, GERD, Huerta's esophagus, hypertension, VERENA, and CHF , prostate cancer status post 9 weeks radiation with completion in the end of December 2016, who presented to the [facility] emergency department due to rectal bleeding that started earlier today. 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 -likely acute radiation proctitis. Infection unlikely. -Patient's most recent treatment was on December 21 with external beam radiation -He states that his symptoms started after his last radiation treatment -Stool PCR to rule out infectious etiology- negative. -Mention of bladder wall thickening which does raise concern for possible rectovesicular fistula. -Dr. Heard, gastroenterology, was contacted and recommended sucralfate enemas twice a day can take several days to note significant improvement. -Morphine PO PRN pain -Hemoglobin has been stable discharge -Follow up with outpatient GI, Dr. Isai Vazquez for further evaluation and Sigmoidoscopy. -Continue Sucralfate enemas twice daily for another 3 days. acute blood loss anemia, likely secondary LGIB due to proctitis, present on admission, active -Trended HH, transfuse for Hgb <7. Not requiring transfusion during admission -IVF NS @100 cc/hr stopped. -Hb has been stable. -Advanced diet. Prostate cancer, present on admission, active - s/p radiation therapy treatment which has been completed - Patient now on hormonal therapy. - Patient is to follow-up with oncology as scheduled Mild acute kidney injury, present on admission, resolved -Baseline Cr around 1, likely secondary to mild prerenal azotemia from diarrhea and poor PO intake -Continue to monitor, IVF as above History of GIST, present on admission, active - History of liver involvement with partial liver resection - Patient to follow-up with his oncologist as scheduled GERD with Huerta's esophagus, present on admission. Active - Continue Protonix PO BID. Hypertension, present on admission, stable - Continue home medications - Monitor closely VERENA with pulmonary hypertension complicated by history of right-sided heart failure and bilateral leg edema, present on admission, stable - Continue CPAP at night History of hiatal hernia s/p RPR/Vagotomy, present on admission, stable - Continue proton pump inhibitor Anxiety, depression and PTSD, present on admission, active - Patient states that he is currently seeing a counselor and will need to continue to do so as an outpatient. - Continue outpatient medications Fatty liver, chronic, stable. Dispo- -Follow up with outpatient GI, Dr. Isai Vazquez for further evaluation and Sigmoidoscopy. -Follow up with your Oncologist as planned. -Continue Sucralfate enemas twice daily for another 3 days. VTE Prophylaxis: SCDs VTE Mechanical Devices: Intermittant Pneumatic CD Resuscitation Status: CPR: Attempt Resuscitation James Ling MD Feb 05, 2017 09:10
--- NOTE | 2017-02-05 09:14 | PCM.DIMED ---
Discharge Instructions Date of Service Feb 05, 2017 Dates of Hospitalization Feb 03, 2017 at 02:34 Discharge Diagnosis Discharge Diagnosis Hematochezia likely due to haemorrhagic radiation proctitis, present on admission, resolved. acute blood loss anemia, likely secondary LGIB due to proctitis, present on admission, active Prostate cancer, present on admission, active Mild acute kidney injury, present on admission, resolved History of GIST, present on admission, active GERD with Huerta's esophagus, present on admission. Active Hypertension, present on admission, stable VERENA with pulmonary hypertension complicated by history of right-sided heart failure and bilateral leg edema, present on admission, stable - History of hiatal hernia s/p RPR/Vagotomy, present on admission, stable Anxiety, depression and PTSD, present on admission, active Medication Instructions Additional med instructions -Continue Sucralfate enemas twice daily for rectal bleeding for another 3 days. Call your provider Call your provider for: Fever or Chills, Bleeding Patient Instructions Patient Instructions -Follow up with outpatient GI, Dr. Isai Vazquez for further evaluation and Sigmoidoscopy next week. -Follow up with your Oncologist as planned. Follow-up Provider: Kellie Vazquez MD Follow-up with PCP in: 1 week James Ling MD Feb 05, 2017 09:14
[2017-02-05] MEDS ORDERED: SUCR1ORA RECTAL (09:16)
[2017-02-05] MEDS ORDERED: MORP15TA PO (09:16)
--- NOTE | 2017-02-05 09:18 | PCM.DC.MED ---
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 acute blood loss anemia, likely secondary LGIB due to proctitis, present on admission, active Prostate cancer, present on admission, active Mild acute kidney injury, present on admission, resolved History of GIST, present on admission, active GERD with Huerta's esophagus, present on admission. Active Hypertension, present on admission, stable VERENA with pulmonary hypertension complicated by history of right-sided heart failure and bilateral leg edema, present on admission, stable - History of hiatal hernia s/p RPR/Vagotomy, present on admission, stable Anxiety, depression and PTSD, present on admission, active Procedures XRay, CTs & MRIs Preliminary report: CT Abd / Pelvis Interpretation CONCLUSION: 1. Rectal wall thickening may be related to underdistention or proctitis. There is liquid density stool throughout the colon consistent with malabsoption/ diarrhea. 2. Normal appendix. No free air, abscess, or bowel obstruction. 3. Bladder wall thickening may be related to underdistention. Correlate with urinalysis if there is clinical concern for infection. No hydronephrosis. Renal cysts. Nonobstructive left renal stones. 4. Fatty liver. Interpretation / Wet Read by: Interpret - Radiologist Brief History Per HPI on 02/03/[address] Good Dylan Anderson is a 61 year old man with past medical history significant for GIST tumor post resection, GERD, Huerta's esophagus, hypertension, VERENA, and CHF , prostate cancer status post 9 weeks radiation with completion in the end of December 2016, who presented to the [facility] emergency department due to rectal bleeding that started earlier today. The patient began experiencing watery diarrhea with bright red blood at around 16:30 today. He notes multiple frequent episodes of diarrhea since onset. Patient volunteers that he has not had any sexual activity and that his bleeding is not due to trauma. He also notes intermittent cramping LLQ abdominal pain. He denies any fevers or chills but does note hot flashes. He notes anorexia. Patient has had poor PO intake over the last 4 days. But has been drinking some water. He denies any nausea or vomiting. Patient was admitted on 01/12/17 for coffee-ground emesis. He underwent EGD which did not reveal any source of bleeding. He was noted to have Huerta's esophagus and was discharge home with outpatient follow up. Patient returned to the ED 6 days later complaining of pink diarrhea. Hemaglobin at that time was 11.1. He had a panic attack in the ED. In the emergency department his vital signs were stable. He was given 1 L NS and 1 mg Ativan. Hospital Course Dylan Anderson is a 61 year old man with past medical history significant for GIST tumor post resection, GERD, Huerta's esophagus, hypertension, VERENA, and CHF , prostate cancer status post 9 weeks radiation with completion in the end of December 2016, who presented to the [facility] emergency department due to rectal bleeding that started earlier today. 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 -likely acute radiation proctitis. Infection unlikely. -Patient's most recent treatment was on December 21 with external beam radiation -He states that his symptoms started after his last radiation treatment -Stool PCR to rule out infectious etiology- negative. -Mention of bladder wall thickening which does raise concern for possible rectovesicular fistula. -Dr. Heard, gastroenterology, was contacted and recommended sucralfate enemas twice a day can take several days to note significant improvement. -Morphine PO PRN pain -Hemoglobin has been stable discharge -Follow up with outpatient GI, Dr. Isai Vazquez for further evaluation and Sigmoidoscopy. -Continue Sucralfate enemas twice daily for another 3 days. acute blood loss anemia, likely secondary LGIB due to proctitis, present on admission, active -Trended HH, transfuse for Hgb <7. Not requiring transfusion during admission -IVF NS @100 cc/hr stopped. -Hb has been stable. -Advanced diet. Prostate cancer, present on admission, active - s/p radiation therapy treatment which has been completed - Patient now on hormonal therapy. - Patient is to follow-up with oncology as scheduled Mild acute kidney injury, present on admission, resolved -Baseline Cr around 1, likely secondary to mild prerenal azotemia from diarrhea and poor PO intake -Continue to monitor, IVF as above History of GIST, present on admission, active - History of liver involvement with partial liver resection - Patient to follow-up with his oncologist as scheduled GERD with Huerta's esophagus, present on admission. Active - Continue Protonix PO BID. Hypertension, present on admission, stable - Continue home medications - Monitor closely VERENA with pulmonary hypertension complicated by history of right-sided heart failure and bilateral leg edema, present on admission, stable - Continue CPAP at night History of hiatal hernia s/p RPR/Vagotomy, present on admission, stable - Continue proton pump inhibitor Anxiety, depression and PTSD, present on admission, active - Patient states that he is currently seeing a counselor and will need to continue to do so as an outpatient. - Continue outpatient medications Fatty liver, chronic, stable. Dispo- -Follow up with outpatient GI, Dr. Isai Vazquez for further evaluation and Sigmoidoscopy. -Follow up with your Oncologist as planned. -Continue Sucralfate enemas twice daily for another 3 days. Exam Vital Signs (Last) Date Time Temp Pulse Resp B/P Pulse Ox O2 Delivery O2 Flow Rate FiO2 02/05/17 04:58 36.6 65 20 146/84 96 Room Air Test 02/02/17 21:15 02/02/17 21:16 02/03/17 11:51 02/05/17 06:00 Prothrombin Time 10.5sec (8.1-12.5) Prothromb Time International Ratio 0.98ratio Magnesium Level 1.9mg/dL (1.6-2.6) Total Bilirubin 0.4mg/dL (0.0-1.2) Aspartate Amino Transf (AST/SGOT) 35U/L (0-50) Alanine Aminotransferase (ALT/SGPT) 35U/L (0-44) Alkaline Phosphatase 138U/L (25-160) Total Protein 8.1g/dL (6.4-8.4) Albumin 4.5g/dL (3.4-5.0) Hold Decker Top Tube Received (Received) Urine Color Yellow (YELLOW) Urine Appearance Clear (CLEAR,HAZY) Urine pH 5.0 (5.0-8.0) Urine Specific Garretson 1.025 (1.003-1.035) Urine Protein Negativemg/dL (NEG,TRACE) Urine Glucose (UA) Negativemg/dL (NEGATIVE) Urine Ketones Negativemg/dL (NEGATIVE) Urine Occult Blood Negative (NEGATIVE) Urine Nitrite Negative (NEGATIVE) Urine Bilirubin Negative (NEGATIVE) Urine Urobilinogen Normalmg/dL (NORMAL) Urine Leukocyte Esterase Negative (NEGATIVE) Urine RBC 0-2/hpf (0-2) Urine WBC 0-5/hpf (0-5) Urine Epithelial Cells Occasional/hpf (NONE-MOD) Urine Crystals Oxalic acid crystals (NONE Urine Bacteria None/hpf (NONE-FEW) Urine Hyaline Casts None/lpf (NONE) Urine Granular Casts None seen (NONE SEEN) Urine Waxy Casts None seen (NONE SEEN) Urine Red Blood Cell Casts None seen (NONE SEEN) Urine White Blood Cell Casts None seen (NONE SEEN) Urine Mucus Present (None Seen) Urine Trichomonas None seen (NONE SEEN) Urine Yeast None (NONE SEEN) Urinalysis Comment None White Blood Count 7.7th/mm3 (3.8-10.1) Red Blood Count 3.71mil/mm3 (4.40-5.80) Hemoglobin 10.7g/dL (13.8-17.2) Hematocrit 33.5% (41.0-50.0) Mean Corpuscular Volume 90.3fL (81-100) Mean Corpuscular Hemoglobin 28.8pg (27.0-35.0) Mean Corpuscular Hemoglobin Concent 31.9% (32.0-37.0) Red Cell Distribution Width 13.2% (12.3-15.4) Platelet Count 202bil/L (150-400) Neutrophils (%) (Auto) 72.3% (40-74) Lymphocytes (%) (Auto) 16.7% (14-46) Monocytes (%) (Auto) 6.8% (4-12) Eosinophils (%) (Auto) 3.5% (0-5) Basophils (%) (Auto) 0.4% (0-3) Sodium Level 142mEq/L (134-144) Potassium Level 4.4mEq/L (3.5-5.2) Chloride Level 105mEq/L (97-108) Carbon Dioxide Level 24mmol/L (18-29) Blood Urea Nitrogen 12mg/dL (8-27) Creatinine 1.25mg/dL (0.76-1.27) Estimat Glomerular Filtration Rate 62mL/min (>59) Glucose Level 130mg/dL (60-99) Calcium Level 8.6mg/dL (8.5-10.1) Discharge Medications Discharge Medications Aspirin (Aspirin) 81 Mg Tablet 81 MG PO DAILY (Reported) Atorvastatin (Lipitor) 20 Mg Tablet 20 MG PO DAILY (Reported) Cholecalciferol (Vitamin D3) (Vitamin D3) 1,000 Unit Tab.chew 1,000 UNIT PO DAILY (Reported) Gabapentin (Gabapentin) 300 Mg Capsule 300-600 MG PO TID (Reported) Methylphenidate (Ritalin) 10 Mg Tablet 10 MG PO Q4 (Reported) Multivits-Min/FA/Lycopene/Lut (Centrum Silver Tablet) 1 Each Tablet 1 EACH PO DAILY (Reported) Pantoprazole DR (Protonix) 40 Mg Tablet 40 MG PO BID Prescribed by: ARIADNA POTTS MD Ranitidine (Ranitidine) 150 Mg Capsule 150 MG PO HS (Reported) Sertraline HCl (Zoloft) 50 Mg Tablet 100 MG PO DAILY (Reported) Sucralfate (Sucralfate) 1 Gm/10 Ml Oral.susp 2,000 MG RECTAL BID Prescribed by: JOSE MCKEON MD Tamsulosin (Flomax) 0.4 Mg Capsule 0.4 MG PO DAILY (Reported) As needed Chlorzoxazone (Chlorzoxazone) 500 Mg Tablet 500 MG PO TID PRN PRN For Spasm ( Reported) Diazepam (Valium) 5 Mg Tablet 15 MG PO BID PRN PRN For Anxiety (Reported) Diphenoxylate/Atropine 2.5-0.025 mg (Lomotil 2.5-0.025 mg) 1 Each Tablet 5 TAB PO DAILY PRN PRN For Diarrhea or Loose Stool (Reported) Furosemide (Furosemide) 40 Mg Tablet 40 MG PO DAILY PRN PRN edema (Reported) Morphine Sulfate (Morphine Sulfate) 15 Mg Tablet 5 MG PO Q4 PRN PRN For Moderate Pain Prescribed by: JOSE MCKEON MD Ondansetron ODT (Ondansetron ODT) 8 Mg Tab.rapdis 8 TAB PO HS PRN PRN For Nausea /Vomiting (Reported) Potassium Citrate ER (Potassium Citrate ER) 15 Meq Tablet 15 MEQ PO DAILY PRN PRN with furosemide (Reported) TAKE WITH FOOD Additional med instructions -Continue Sucralfate enemas twice daily for rectal bleeding for another 3 days. Followup Plan Disposition: Home Patient Instructions -Follow up with outpatient GI, Dr. Isai Vazquez for further evaluation and Sigmoidoscopy next week. -Follow up with your Oncologist as planned. Follow-up Provider: Kellie Vazquez MD Follow-up with PCP in: 1 week Time spent Greater than 30 minutes was spent in preparation of discharge with greater than 50% of that time dedicated to patient counseling and coordination of care. Jose Mckeon MD Feb 05, 2017 09:18
[2017-02-05] MEDS: Sucralfate 100 mg/mL 10 mL Suspension RECTAL SCH (09:31)
[2017-02-05] MEDS: Pantoprazole 40 mg ER24 Tablet PO SCH (09:31)
--- NOTE | 2017-02-05 13:16 | NUR ---
Social Work: Readiness for Discharge D: EMR reviewed. Pt is on day 2 of hospitalization. Pt discussed in multidisciplinary rounds. Per multidisciplinary rounds, pt is medically stable for discharge home today via POV. MD indicated pt does not have any SW needs. No MD orders received. A: Pt who is independent at baseline P: Pt to discharge home today via POV. No SW needs identified, no MD orders received. SW will continue to follow. REE Mendoza
--- NOTE | 2017-02-05 14:44 | NUR ---
Social Work: Discharge/Multidisciplinary Rounds D: EMR reviewed. Pt is on day 2 of hospitalization. Pt discussed in multidisciplinary rounds. Per multidisciplinary rounds, pt is medically stable for discharge home today via POV. MD indicated pt does not have any SW needs. No MD orders received. A: Pt who is independent at baseline P: Pt to discharge home today via POV. No SW needs identified, no MD orders received. SW will continue to follow. REE Mendoza
--- NOTE | 2017-02-05 17:44 | NUR ---
discharged home. Drove self in his own vehicle. eating very well, no bloody diarrhea or emesis. Pt seems very needy and lonely. Did not seem to want to discharge home at all, even though he was not having symptoms and had gotten discharged by Dr Ling early in the morning, he stayed as long as he could.
== END 2017-02-05 17:03 | disposition home or self-care (01) | DRG 378 ==
LOC: SED 19:45 → MPC 02-03 02:34 → OSC 02-03 09:51
PROVIDERS: ADMIT Internal Medicine; ATTEND Internal Medicine
DX: K92.1 Melena (principal); D62 Acute posthemorrhagic anemia; N17.9 Acute kidney failure, unspecified; K22.70 Barrett's esophagus without dysplasia; K21.9 Gastro-esophageal reflux disease without esophagitis; C61 Malignant neoplasm of prostate; I10 Essential (primary) hypertension; G47.33 Obstructive sleep apnea (adult) (pediatric); F41.8 Other specified anxiety disorders; I27.2 Other secondary pulmonary hypertension; Z87.891 Personal history of nicotine dependence; K62.7 Radiation proctitis; W90.8XXA Exposure to other nonionizing radiation, initial encounter

== ENCOUNTER → 2017-03-10 | Day surgery (SDC) | payer OTHER ==
[~2017-03-10] VITALS: Ht 175.3 cm; Wt 95.0 kg
[~2017-03-10] MED LIST changes: +0.9% Sodium Chloride 1,000 ML IV SCH; +ARMO150T5 PO; -ASPI-973 PO; -ATOR20TA PO; -CHLO500T24 PO; -CHOL10008 PO; -DIPH1TAB PO; -FERR-83 PO; -GABA-502 PO; +LIPA1CAP5 PO; -MULT-1073 PO; -NORT10CA PO; +NORT25CA PO; +NPR500T PO; +OMEP40CA36 PO; -ONDA8TAB10 PO; -OXYC-407 PO; -PANT40TA2 PO; +PROZ20 PO; +Propofol 10 mg/mL 20 mL Inj ONE; +Sodium Chloride LOK Flush 10 mL Syringe IV PRN; +fentaNYL-PF 50 mCg/mL 2 mL Inj IVPUSH PRN
[2017-03-10 08:14] VITALS: BP 134/93; PULSE 77; RESP 14; O2SAT 99
[2017-03-10 09:28] VITALS: BP 136/79; PULSE 62; RESP 16; O2SAT 100
[2017-03-10 09:38] VITALS: BP 138/82; PULSE 62; RESP 14; O2SAT 100
[2017-03-10 09:49] VITALS: BP 138/79; PULSE 62; RESP 14; O2SAT 100
--- NOTE | 2017-03-10 09:51 | PCM.HPANE ---
Patient Data Surgeon Admitting Provider: Attending Provider:Kellie Vazquez MD Primary Care Physician:Kelsey Ervin MD Other Provider: Reason for Visit Rectal Bleeding Ht/WT & BMI Height (Feet): 5 Height (Inches): 9 Weight (Kilograms): 95 Body Mass Index 31.00 Allergies Coded Allergies: cephalexin (Verified Allergy, Intermediate, lips swelled and itching, ) Past Anesthesia History Anesthesia History: Denies:: Abnormal Airway, Anesthesia Reactions, Difficult Intubation, Fam Anesthesia Reaction, Fam Malignant Hypertherm, Malignant Hyperthermia Diabetes History Hx Diabetes?: No MRSA MRSA: No Medications Blood Thinner: Aspirin Reported Medications Fluoxetine (Prozac)20 Mg Ygnpyyz23 Mg PO DAILY Ref 0 03/10/17 Omeprazole 40 Mg Capsule.dr40 Mg PO DAILY Ref 0 03/08/17 Lipase/Protease/Amylase (Creon DR)24,000 Unit Capsule2 Capsule PO TID 03/08/17 Tamsulosin (Flomax)0.4 Mg Capsule0.4 Mg PO DAILY Ref 0 01/12/17 Potassium Citrate ER 15 Meq Rnrjsg05 Meq PO DAILY PRN with furosemide Ref 0 TAKE WITH FOOD 01/12/17 Methylphenidate (Ritalin)10 Mg Ygfktd43 Mg PO Q4 Ref 0 07/19/16 Furosemide 40 Mg Zqhsmk93 Mg PO DAILY PRN edema 03/25/15 Ranitidine 150 Mg Afvpiov709 Mg PO HS Ref 0 03/25/15 Diazepam (Valium)5 Mg Hfngeq54 Mg PO BID PRN For Anxiety 30 Days Ref 0 08/13/14 Discontinued Reported Medications Armodafinil (Nuvigil)150 Mg Afhglj399 Mg PO 03/08/17 Nortriptyline 25 Mg CapsuleUnknown Dose PO HS 03/08/17 Naproxen 500 Mg Ons738 Mg PO BID PRN For Pain Ref 0 03/08/17 Sertraline HCl (Zoloft)50 Mg Gmfwdt824 Mg PO DAILY 30 Days Ref 0 12/24/14 Atorvastatin (Lipitor)20 Mg Kznvex75 Mg PO DAILY Ref 0 01/12/17 Chlorzoxazone 500 Mg Lvmrjx937 Mg PO TID PRN For Spasm 01/12/17 Ondansetron ODT 8 Mg Tab.rapdis8 Tab PO HS PRN For Nausea/Vomiting 01/12/17 Multivits-Min/FA/Lycopene/Lut (Centrum Silver Tablet)1 Each Tablet1 Each PO DAILY 01/12/17 Gabapentin 300 Mg Ypjrixn336-077 Mg PO TID Ref 0 10/15/15 Aspirin 81 Mg Okwmdi79 Mg PO DAILY Ref 0 09/03/15 Cholecalciferol (Vitamin D3) (Vitamin D3)1,000 Unit Tab.chew1,000 Unit PO DAILY 03/25/15 Diphenoxylate/Atropine 2.5-0.025 mg (Lomotil 2.5-0.025 mg)1 Each Tablet5 Tab PO DAILY PRN For Diarrhea or Loose Stool 01/01/15 Discontinued Scripts Sucralfate 1 Gm/10 Ml Oral.susp2,000 Mg RECTAL BID #10 Prov:James Ling MD 02/05/17 Morphine Sulfate 15 Mg Tablet5 Mg PO Q4 PRN For Moderate Pain #20 TABLET Prov:James Ling MD 02/05/[address] (Protonix)40 Mg Pjahbd87 Mg PO BID #60 TABLET Ref 0 Prov:Yung Smith MD 01/13/17 History History of ENT Problems?: No HEENT History: Positive for:: Hearing Problem Denies:: Abnormal Airway Cataracts Difficult Intubation Dysphagia Sinus Problem Denture Type: None Teeth Condition: Within Normal Limits Hx of Heart Problems?: Yes Cardiovascular History: Positive for:: Edema Heart Murmur Hypertension Denies:: AICD Atrial Fibrillation Cardiac Surgery Chest Pain Congestive Heart Failure Irregular Heartbeat Pacemaker Thrombophlebitis Valvular Heart Disease Hx of Respiratory Problem?: Yes Respiratory History: Positive for:: Cough Hemoptysis Pneumonia (1973) Use of C-PAP Machine (REPORTED VERENA+) Denies:: Asthma COPD Chest Surgery Dyspnea Emphysema Tuberculosis Hx Neurologic Problems?: Yes Neurological History: Positive for:: Dizziness Headaches Seizures (reports 1 seizure in 1990) Denies:: Alzheimer's Disease CVA Dementia Parkinson's Disease Hx of GI Problems?: Yes Hx of Problems?: Yes Genitourinary History: Positive for:: Kidney Stones Urinary Tract Infection Denies:: HX of Hemodialysis HX of Peritoneal Dialysis: No Male Hx: Positive for:: Prostate Problems (prostate cancer--radiation and seed therapy) Denies:: Scrotal Mass Testicular Surgery Skin History: Denies:: History Skin Disorders? Pressure Ulcers Hx Musculoskeletal Problems?: Yes Musculoskeletal History: Positive for:: Back Injury (chronic low back pain) Denies:: Joint Replacement Musculoskeletal Trauma Hx of Psycho/Social Problems?: Yes Psycho Social History: Positive for:: Anxiety Hx Depression Denies:: Bipolar Disorder Suicide Attempt Hx Surgeries?: Yes (neck surgery, tonsilectomy, liver/stomach resction, L5-S1 lami, ULCER REPAI) Hx Any Other Health Problems?: Yes Other History: Positive for:: Cancer (prostate ) Hospitalization (- 1990, neck surgery, tonsilecomy, ) Denies:: Endocrine Disease Thyroid Disease History Blood Transfusions: Positive for:: Blood Transfusions Denies:: Blood Transfuse Reaction Hx Diabetes: No Hx Alcohol Use: Yes (as young man)Hx Substance Use: No Smoking Status: Former Smoker Have You Smoked inLast 12 mo: No Stop/Bang Treated for Sleep Apnea?: Yes Do You Have a CPAP Machine?: Yes Risk Assessment Category Category 1A: Patient has history of documented sleep apnea, and HAS NOT received any narcotic, sedative or anesthesia administration during this stay. Category 1B: Patient has history of documented sleep apnea, and HAS received any narcotic , sedative or anesthesia administration during this stay Category 2: Patient has SUSPECTED Obstructive Sleep Apnea, and HAS received any narcotic , sedative or anesthesia administration during this stay. Category 3: Patient has SUSPECTED Obstructive Sleep Apnea and HAS NOT received narcotic, sedative or anesthesia administration during this stay. Category 4: Outpatient in Procedural Areas with known sleep apnea or who screen positive for High Risk via the STOP/BANG questionnaire. Exam Exam Vital Signs Vital Signs Date Time Temp Pulse Resp B/P Pulse Ox O2 Delivery O2 Flow Rate FiO2 03/10/17 09:49 62 14 138/79 100 Room Air 03/10/17 09:38 62 14 138/82 100 Nasal Cannula 2 03/10/17 09:28 36.2 62 16 136/79 100 Nasal Cannula 2 03/10/17 08:14 77 14 134/93 99 Room Air General Appearance: Alert, Oriented X3, Cooperative, No Acute Distress HEENT/AIRWAY: MP 2 Lungs: Normal Air Movement Heart: Regular Rate/Rhythm Meds/Labs/Diagnostics Admission Meds Current Medications Sodium Chloride (Normal Saline) 1,000 ml @ 10 mls/hr Q24H IV Last administered on 03/10/17t 09:23; Start 03/10/17 at 06:00 Plan Impression Patient chart reviewed, patient interviewed and anesthestic plan with risks, benefits, and alternatives discussed, and informed consent obtained. NPO per Anesth. Guidelines: Yes ASA Physical Status: ASA2 Mod Systemic Disease Anesthetic Plan: MAC Bene/Risks/Altern/Consents: Yes HP Complete Prior to Induction: Yes Jerry Ramos MD Mar 10, 2017 09:51
--- NOTE | 2017-03-10 09:53 | PCM.ANEP1 ---
Post Anesthesia PACU Phase 1 Assessment Vital Signs Vital Signs Date Time Temp Pulse Resp B/P Pulse Ox O2 Delivery O2 Flow Rate FiO2 03/10/17 09:49 62 14 138/79 100 Room Air 03/10/17 09:38 62 14 138/82 100 Nasal Cannula 2 03/10/17 09:28 36.2 62 16 136/79 100 Nasal Cannula 2 03/10/17 08:14 77 14 134/93 99 Room Air Anesthetic Administered: MAC Level of Alertness: Awake, talking Pain: No Nausea or Vomiting: No CV Function & Hydration Stable: Yes Airway Device: None Oxygen Delivery: Nasal Cannula Lungs: Normal Air Movement PACU Phase 2 Assessment Complications: No Follow up Care: N/A Patient Instructions Provided: N/A Jerry Ramos MD Mar 10, 2017 09:53
--- NOTE | 2017-03-10 12:28 | ENDO ---
[address] [address] ENDOSCOPY PROCEDURE PATIENT: JOSE WATERMAN : 1955 MR#: [id number] ADMIT: 03/10/2017 JOB ID: [id number] DATE OF SERVICE: 03/10/2017 PROCEDURE PERFORMED: Colonoscopy. INDICATIONS: Rectal bleeding. ASA CLASSIFICATION, MALLAMPATI SCORE AND MEDICATIONS: The patient's ASA classification, Mallampati score and medications as per Dr. Ramos's anesthesia note. INSTRUMENT USED: [id number]-H180AL. PREPARATION QUALITY: Poor. PROCEDURE DETAILS: After informed consent was obtained, the patient was brought to the GI suite, where he was placed on oxygen via nasal cannula and monitored with continuous pulse oximeter, telemetry, and blood pressure monitoring. A time-out was performed. Then, he was placed in the left lateral decubitus position and medications were administered for sedation. Digital rectal exam was performed which was unremarkable. The colonoscope was then inserted into the rectum and advanced under direct visualization to the cecum, which was identified by the presence of the ileocecal valve. I was unable to appreciate the appendiceal orifice secondary to a poor prep. The colonoscope was then withdrawn. Visualized mucosa was examined. In the rectum, retroflexion was performed. Following retroflexion, remaining air in the rectum was suctioned, and procedure was completed. FINDINGS: Poor prep throughout the colon. Visualized colon appeared unremarkable. No large lesions seen. Smaller lesions may have been missed. IMPRESSION: Poor prep. RECOMMENDATIONS: Repeat colonoscopy with two-day prep. COMPLICATIONS: None. ESTIMATED BLOOD LOSS: Zero.
== END | disposition home or self-care (01) ==
LOC: END 00:55
PROVIDERS: ATTEND Internal Medicine Gastroenterology
DX: K62.5 Hemorrhage of anus and rectum (principal); R01.1 Cardiac murmur, unspecified; I10 Essential (primary) hypertension; R60.9 Edema, unspecified; H91.90 Unspecified hearing loss, unspecified ear; R05 Cough; R42 Dizziness and giddiness; R51 Headache; G89.29 Other chronic pain; M54.5 Low back pain; F41.9 Anxiety disorder, unspecified; Z85.46 Personal history of malignant neoplasm of prostate; Z87.442 Personal history of urinary calculi; Z79.899 Other long term (current) drug therapy; Z87.891 Personal history of nicotine dependence
CPT/HCPCS: 45378; J2704; J7030

== ENCOUNTER 2017-03-17 08:32 | Inpatient (IN) | payer OTHER ==
[2017-03-17] VITALS (7 sets, daily range): BP systolic 110–149; BP diastolic 55–98; PULSE 65–79; RESP 14–36; O2SAT 97–100
[~2017-03-17] VITALS: Ht 175.3 cm; Wt 96.3 kg
[~2017-03-17 08:32] MED LIST changes: -0.9% Sodium Chloride 1,000 ML IV SCH; -ARMO150T5 PO; -NORT25CA PO; -NPR500T PO; -Propofol 10 mg/mL 20 mL Inj ONE; -SERT50TA PO; -Sodium Chloride LOK Flush 10 mL Syringe IV PRN; -fentaNYL-PF 50 mCg/mL 2 mL Inj IVPUSH PRN
--- NOTE | 2017-03-17 08:44 | ED.REPORT ---
HPI-GI Bleed Date of Service Mar 17, 2017 ED Provider: Misbah Dubon MD Pt is a 61 y/o male with a history of cancer, stomach ulcers, GERD, Huerta's esophagus, CHF, and HTN who presents to the ED c/o hematemesis onset 0300 this morning. He has had upper and lower GI bleeds in the past, and was hospitalized on 02/03/17, but states that this is the worst it has ever been. Additional symptoms include abdominal pain, nausea, diaphoresis, shaking, dizziness, and lightheadedness. He denies rectal bleeding. Pt states that he has taken 4 Zofran since 299. Nursing Notes Stated Complaint: VOMINTING BLOOD Chief Complaint: Male Abdominal Pain Nursing Notes Reviewed: Yes (EncrypTix, ROCKETHOME not reconciled) Allergies: Coded Allergies: cephalexin (Verified Allergy, Intermediate, lips swelled and itching, 03/17) Scheduled Fluoxetine (Prozac) 20 Mg Capsule 20 MG PO DAILY Lipase/Protease/Amylase (Creon DR) 24,000 Unit Capsule 2 CAPSULE PO TID Methylphenidate (Ritalin) 10 Mg Tablet 10 MG PO Q 4Hrs Omeprazole (Omeprazole) 40 Mg Capsule.dr 40 MG PO DAILY Ranitidine (Ranitidine) 150 Mg Capsule 150 MG PO HS Tamsulosin (Flomax) 0.4 Mg Capsule 0.4 MG PO DAILY Scheduled PRN Diazepam (Valium) 5 Mg Tablet 15 MG PO BID PRN PRN For Anxiety Furosemide (Furosemide) 40 Mg Tablet 40 MG PO DAILY PRN PRN edema Potassium Citrate ER (Potassium Citrate ER) 15 Meq Tablet 15 MEQ PO DAILY PRN PRN with furosemide TAKE WITH FOOD General Time Seen by Provider: 08:42 Chief Complaint Chief Complaint: Vomiting blood Hx Obtained From: Patient Arrived By: Walk-in Onset Occurred: 5 - 8 hours ago Symptom Duration: Constant Quality: Painful Severity: Current: Severe Severity: Maximum: Severe Recent Healthcare: Recent doctor visit Similar Sx Previous: Yes Past Medical History Past Medical History GERD w/ho Huerta's esophagus prostate cancer s/p radiation h/o CHF, hypertension h/o VERENA hiatal hernia s/p RPR/Vagotomy liver disease s/p partial liver resection kidney stones back pain, anxiety, depression, GI stromal tumor h/o " gallbladder disease" Past Surgical History T&A C6 ACDF Pilonidal cyst Hiatal hernia Right wrist surgery Liver resection Family History Noncontributory Smoking History Former Smoker Social History Other Social History: , Local resident Ambulatory Status Independent Review of Systems No rectal bleeding GI: Reports: Abdominal pain, Hematemesis, Nausea Skin: Reports Diaphoresis Neurologic: Reports: Dizziness, Lightheaded, Shaking Complete sys rev & neg: except as marked. Physical Exam Initial Vital Signs Vital Signs (First) Date Time Temp Pulse Resp B/P Pulse Ox O2 Delivery O2 Flow Rate FiO2 03/17/17 08:39 79 36 136/98 97 Room Air 03/17/17 09:59 1 Initial VS: Reviewed Head / Eyes: Atraumatic, Normocephalic Neck: Supple, Full range of motion Extremities: Vascular intact, Neuro intact, No swelling, No tenderness Neurologic: Alert, Oriented, Nonfocal General/Constitutional: Awake, Alert Appears ill and miserable Moderately pale Respiratory / Chest: Atraumatic, Breath sounds NL, Breath sounds = bilat, No respiratory distress Cardiovascular: Heart rate NL, Regular rhythm, Heart sounds NL No edema Abdomen: Soft, Non-tender Pt denies rectal bleeding Head / Eyes: Atraumatic, Normocephalic Interpretation & Diagnostics Lab Results Interpretation Result Diagram: 03/17/17 0944 03/17/17 0900 Test 03/17/17 09:00 03/17/17 09:44 03/17/17 10:14 White Blood Count 12.5th/mm3 (3.8-10.1) Red Blood Count 4.80mil/mm3 (4.40-5.80) Mean Corpuscular Volume 87.9fL (81-100) Mean Corpuscular Hemoglobin 28.8pg (27.0-35.0) Mean Corpuscular Hemoglobin Concent 32.7% (32.0-37.0) Red Cell Distribution Width 12.6% (12.3-15.4) Platelet Count 377bil/L (150-400) Neutrophils (%) (Auto) 78.4% (40-74) Lymphocytes (%) (Auto) 16.5% (14-46) Monocytes (%) (Auto) 3.8% (4-12) Eosinophils (%) (Auto) 0.8% (0-5) Basophils (%) (Auto) 0.2% (0-3) Prothrombin Time 9.8sec (8.1-12.5) Prothromb Time International Ratio 0.94ratio Sodium Level 136mEq/L (134-144) Potassium Level 4.7mEq/L (3.5-5.2) Chloride Level 96mEq/L (97-108) Carbon Dioxide Level 16mmol/L (18-29) Blood Urea Nitrogen 16mg/dL (8-27) Creatinine 1.12mg/dL (0.76-1.27) Estimat Glomerular Filtration Rate 71mL/min (>59) Glucose Level 232mg/dL (60-99) Lactic Acid Level 5.7mmol/L (0.4-2.0) Calcium Level 9.7mg/dL (8.5-10.1) Magnesium Level 1.9mg/dL (1.6-2.6) Total Bilirubin 0.3mg/dL (0.0-1.2) Aspartate Amino Transf (AST/SGOT) 27U/L (0-50) Alanine Aminotransferase (ALT/SGPT) 21U/L (0-44) Alkaline Phosphatase 126U/L (25-160) Troponin T 0.010ug/L (0.0-0.011) Total Protein 7.9g/dL (6.4-8.4) Albumin 3.7g/dL (3.4-5.0) Hemoglobin 14.1g/dL (13.8-17.2) Hematocrit 42.0% (41.0-50.0) Lab Results Interpretation: CBC #1, mild leukocytosis, hematocrit normal and actually improved by 10 points compared to January when was admitted for last GI bleed CMP moderate metabolic acidosis with elevated anion gap, hyperglycemia Lactic acid severely elevated Blood cultures 2 pending Patient typed and crossed ECG Interpretation ECG Interpretation: Sinus rhythm, rate 67 No acute ischemic changes Computer reads prolonged QT, not evident Time: 09:48 Interpreted by: ED physician X-Ray Chest Interpretation Chest Xray Interpretation: IMPRESSION: No radiographic evidence of acute cardiopulmonary pathology. Dictated by: Avtar Dias M.D. on 03/17/2017 at 9:23 Approved by: Avtar Dias M.D. on 03/17/2017 at 9:23 View: Portable, 1 view Interpretation / Wet Read by: Interpret - Radiologist CT Abd / Pelvis Interpretation IMPRESSION: 1. Descending and transverse colitis with no perforation, obstruction, or drainable fluid collections. This may represent ischemic colitis although the celiac axis, superior and inferior mesenteric arteries are grossly patent on this non-angiographic study. No portal venous gas. Infectious colitis is also possible. 2. Postoperative changes of previous gastric stromal tumor removal. 3. Findings discussed in person with Dr. Bland at 10:45 AM on 03/17/2017. Dictated by: Avtar Dias M.D. on 03/17/2017 at 10:42 Approved by: Avtar Dias M.D. on 03/17/2017 at 10:52 Study type: Abdominal CT IV contrast Interpretation / Wet Read by: Interpret - Radiologist Re-Eval/Medical Decision Med Decision/Clinical Course This is a 61 transgender who presents complaining of acute onset of nausea and vomiting with a chief complaint of "vomiting blood" but also complaining of some abdominal discomfort. She reports waking from sleep around 3 AM symptoms and said recurrent nausea vomiting, he described marked hematemesis, but notes that it was not consistently blood that he vomited. He complains of just feeling terrible, and has had admission for upper GI bleed without findings beyond Huerta's on upper endoscopy in December, and was admitted for lower GI bleed last month which is thought to be radiation induced from his prostate cancer and prior treatment for GI stromal cancer that is been resected and in remission. He has she just underwent an attempted follow-up colonoscopy last week, but poor quality prep limit the attempt. He reports he is not clinically had any lower GI bleeding in recent days. He denies Fevers or chills. On arrival the patient appears critically ill, is diaphoretic and pale and miserable appearing. He was Very restless. He had no hematemesis in the department however. His abdomen is nontender to clinical palpation. He had 2 large-bore IVs initiated, protonic strip was initiated given the report of upper GI hematemesis. He is not on anticoagulants. The patient had normal vitals with no hemodynamic instability. EKG revealed no ischemia. Lab work is notable for a normal hematocrit which remained unchanged, mild leukocytosis but a moderate metabolic acidosis. GIven the unusual history and presentation, and the extensive involvement of GI in his recent care, and given his primary complaint of hematemesis GI has been consulted. They request he remained nothing by mouth, and will consider a repeat upper endoscopy. With the labs revealing a moderate metabolic acidosis and lactic acid was added this is an anion gap-and a severely elevated. The patient received titrated fentanyl and appears much more comfortable, but clinically continues to complain of pain - although he has no tenderness on physical exam. Given the elevated lactic acid, the leukocytosis, the unexplained and unusual presentation CT imaging was pursued and was interpreted as positive for colitis with ischemic colitis being in the differential. Although on the non- angiographic study vessels appear widely patent. The patient has an atypical presentation, but in our treatment can be made for component of pain out of proportion, the elevated lactic acid this is also concerning-even though the overall hesitation is a bit unusual for ischemic bowel. However given the overall presentation concerning enough that surgical consultation has been requested and the case discussed with Dr. Tubbs he's been seen by the hospitalists in members of arm is being admitted for continued management. On reevaluation the patient still complains of being uncomfortable, but looks markedly better than his initial presentation. Following IV fluids his diaphoresis has resolved, his distress is resolved, and he is no longer in extremis. Source of Hx: Old records Re-Evaluation/Progress : Time of Eval: 08:42 Re-Evaluation/Progress Note: Discussed plan for admission. Pt understands and agrees with plan. All questions addressed. Consultation #1: Referral / Consult Name: Michael Bland MD Call Returned at: 09:56 Athlete Manager: Will see patient, Agrees with eval, Agrees with plan Note: Discussed pt's case with set painter, Dr. Bland. He wants the pt NPO. Consultation #2: Referral / Consult Name: Edson Valladares MD Consulted With: Hospitalist Call Returned at: 10:03 Athlete Manager: Will see patient, Agrees with plan, Accepts admit Note: Discussed pt's case with hospitalist, Dr. Valladares. He accepts admission. Consultation #3: Referral / Consult Name: Peg Tubbs MD Consulted With: Trauma surgeon Call Returned at: 11:13 Athlete Manager: Agrees with eval, Agrees with plan Note: Discussed pt's case with trauma surgeon, Dr. Tubbs. She will consult on pt. Consultation #4: Referral / Consult Name: Edson Valladares MD Consulted With: Hospitalist Call Returned at: 11:22 Athlete Manager: Agrees with plan Note: Updated hospitalistDr. Valladares on pt. He agrees with plan to have surgery consult. Differential Diagnosis: Positive: GI Bleed, Negative: Anal fissures, Foreign body intestine, Meckel's diverticulum, Pilonidal cyst Counseled Regarding: Diagnosis, Lab results, Need for admission Discharge & Departure Departure Notes r/o ischemic bowel Impression: Primary Impression: Gastrointestinal bleed GI bleed type/associated pathology: unspecified gastrointestinal hemorrhage type Qualified Code: K92.2 - Gastrointestinal hemorrhage, unspecified Additional Impressions: Vomiting Vomiting type: unspecified Vomiting Intractability: unspecified Nausea presence: with nausea Qualified Code: R11.2 - Nausea with vomiting, unspecified Abdominal pain Abdominal location: generalized Qualified Code: R10.84 - Generalized abdominal pain Lactic acidosis Disposition: ADMITTED TO HOSPITAL Discharge Condition All VS Reviewed: Yes Condition: Stable Referrals: Kesley Ervin MD (PCP) Crit Care Except Billable Proc Time Spent: 30-74 minutes Services Performed: Patient management by me, Time spent at bedside, Reviewing test results, Reviewing imaging, Discussing patient care, Documentation in record, Other Scribe Attestation Portions of this note were transcribed by Davina Mcclelland. I, Dr. Dubon, personally performed the history, physical exam and medical decision-making; I reviewed and confirmed the accuracy of the information in the transcribed note. Signed by: Sean Oneill, 03/17/17. copies to: Kelsey Ervin MD, Matthew F MD Mar 17, 2017 08:44 Davina Mcclelland Mar 17, 2017 08:55
[2017-03-17] MEDS ORDERED: Pantoprazole Inj 80 MG, Pharmacy To Mix 1 EA in 0.9% Sodium Chloride 80 ML IV ONE ×2 (08:45)
[2017-03-17] MEDS ORDERED: 0.9% Sodium Chloride 1,000 ML IV ONE ×2 (08:45→10:05)
[2017-03-17] MEDS ORDERED: Pantoprazole 4 mg/mL 10 mL Inj IVPUSH ONE (08:45)
[2017-03-17] MEDS ORDERED: fentaNYL-PF 50 mCg/mL 2 mL Inj IVPUSH ONE (08:55)
[2017-03-17] MEDS ORDERED: Promethazine Inj 25 MG in Dextrose 5%-Pha MIX 50 ML IV ONE (08:55)
[2017-03-17 09:09] LABS: BASOPHILS % (AUTO) 0.2 % (0-3); EOSINOPHILS % (AUTO) 0.8 % (0-5); MONOCYTES % (AUTO) 3.8 % (4-12); Mean Corpuscular Hemoglobin 28.8 pg (27.0-35.0); Mean Corpuscular Volume 87.9 fL (81-100); NEUTROPHILS % (AUTO) 78.4 % (40-74); Platelet Count 377 bil/L (150-400)
--- NOTE | 2017-03-17 09:25 | DRSVH ---
PROCEDURE: X-RAY CHEST ONE VIEW, PORTABLE ([id number]) INDICATIONS: aspriation TECHNIQUE: One view of the chest was acquired. COMPARISON: None. FINDINGS: Surgical changes and devices: Cervical spine postoperative change. Upper abdominal surgical clips. Lungs and pleura: No pleural effusions or pneumothorax. Lungs are clear. Mediastinum: Mediastinal contours appear normal. Heart size is normal. Bones and chest wall: No suspicious bony lesions. Overlying soft tissues appear unremarkable. IMPRESSION: No radiographic evidence of acute cardiopulmonary pathology. Dictated by: Avtar Dias M.D. on 03/17/2017 at 9:23 Approved by: Avtar Dias M.D. on 03/17/2017 at 9:23
[2017-03-17 09:30] LABS: INR 0.94 ratio
[2017-03-17 09:32] LABS: TROPONIN T 0.01 ug/L (0.0-0.011)
[2017-03-17] MEDS: fentaNYL-PF 50 mCg/mL 2 mL Inj IVPUSH PRN ×2 (09:42→11:18)
[2017-03-17 09:43] LABS: Magnesium 1.9 mg/dL (1.6-2.6)
--- NOTE | 2017-03-17 10:54 | DRSVH ---
PROCEDURE: CT ABDOMEN AND PELVIS WITH CONTRAST ([id number]) INDICATIONS: ABd Pain TECHNIQUE: After the administration of intravenous contrast, 5 mm thick sections acquired from the diaphragm to the symphysis. 5 mm coronal and sagittal reformats were acquired. For radiation dose reduction, the following was used: automated exposure control, adjustment of mA and/or kV according to patient mayi berman. COMPARISON: [facility], CT, CT ABD PELVIS W CON, 02/02/2017, 22:34. FINDINGS: Image quality: Excellent. ABDOMEN: Lung bases: Lung bases are clear. Heart size is normal. Solid organs: Liver and spleen are normal in size and enhancement. Gallbladder is surgically absent . Biliary system is non dilated. Pancreas enhances normally. No adrenal nodules. Kidneys demonstr ate normal size and enhancement, without hydronephrosis. Nonobstructing inferior left renal pole 4 m m calculus. Benign renal cysts. Peritoneum and bowel: There is wall thickening and inflammatory change with abnormal enhancement thro ughout the descending colon and the majority of the transverse colon. No obstruction, perforation, or adrenal fluid collections. The remaining colon is normal. Small bowel and appendix are normal. There are postoperative changes in the stomach related to previous stromal cancer treatment. Nodes and vessels: No retroperitoneal or mesenteric adenopathy by size criteria. Aorta and inferior vena cava are normal in size. Miscellaneous: Small fat-containing anterior abdominal wall periumbilical hernia and bilateral fat-co ntaining inguinal hernias. PELVIS: Genitourinary: Bladder wall thickness is normal. Pelvic postoperative change. Miscellaneous: No inguinal hernias or adenopathy. Bones: No suspicious bony lesions. No vertebral body compression fractures. IMPRESSION: 1. Descending and transverse colitis with no perforation, obstruction, or drainable fluid collections . This may represent ischemic colitis although the celiac axis, superior and inferior mesenteric ann cynthia are grossly patent on this non-angiographic study. No portal venous gas. Infectious colitis is a lso possible. 2. Postoperative changes of previous gastric stromal tumor removal. 3. Findings discussed in person with Dr. Bland at 10:45 AM on 03/17/2017. Dictated by: Avtar Dias M.D. on 03/17/2017 at 10:42 Approved by: Avtar Dias M.D. on 03/17/2017 at 10:52
[2017-03-17] MEDS: Lactated Ringer's 1,000 ML IV SCH ×2 (11:03→19:03)
[2017-03-17] MEDS ORDERED: metroNIDAZOLE Inj 1,000 MG in IV Premix 1 EACH IV SCH (11:05)
[2017-03-17] MEDS ORDERED: Alum-Mag Hydrox-Simeth 30 mL Suspension PO PRN ×2 (11:05→11:30)
[2017-03-17] MEDS ORDERED: 0.9% Sodium Chloride 1,000 ML IV SCH (11:26)
[2017-03-17 11:29] LABS: APPEARANCE,URINE HAZY (CLEAR,HAZY); COLOR,URINE STRAW (YELLOW); OCCULT BLOOD,URINE NEGATIVE (NEGATIVE); PH,URINE 8.5 (5.0-8.0); UROBILINOGEN,URINE NORMAL (NORMAL)
[2017-03-17] MEDS ORDERED: Ondansetron 2 mg/mL 2 mL Inj IVPUSH PRN (11:30)
--- NOTE | 2017-03-17 12:06 | PCM.CHPMED ---
Subjective Date of Service: Mar 17, 2017 Provider requesting consult: Misbah Dubon MD Primary Physician: Admitting Physician: Primary Care Physician: Kelsey Ervin MD Attending Physician: Admit Status: From the Emergency Department Chief Complaint: Chief Complaint: VOMITING BLOOD History of Present Illness: GASTROENTEROLOGY CONSULT Attending Physician: Michael Bland MD Resident Physician: Danelle Moncada DO Dylan Anderson is a 61-year-old gentleman with a history of GI stromal tumor post resection, GERD, Huerta's esophagus, hypertension, VERENA, CHF, prostate s/p radiation in December 2016 and [facility] admissions for lower GI bleeding secondary to radiation proctitis as well as hematemesis who presented to the emergency department with abdominal pain and hematemesis that started yesterday evening. Patient notes prior admission for GI bleeds but that this is the worse the abdominal pain has ever been. He states that the pain is localized around his umbilicus and 'feels like a bowling ball'. The pain does not radiate and he denies diarrhea, melena or hematochezia. He states that he has been somewhat constipated lately. He denies fever and chills but notes diaphoresis as well as generalized weakness, lightheadeness, and fatigue. He states that the hematemesis started at approximately 3am and after several episodes he thought he better come in. Of note, a colonoscopy on 03/10 showed poor prep throughout the colon but the visualized colon appeared unremarkable and no large lesions were seen. Additionally, due to the patient's history of GI stromal tumor he has had multiple EGDs for surveillance. Most recently on 01/12 after presenting to the ED with hematemesis, an EGD showed surgical changes consistent with prior gastric surgery, Huerta's esophagus but no old or fresh blood was visualized and a source for his hematemsis at that time was not identified. In the emergency department, his vitals were stable with a BP 136/98 with a HR of 79 and oxygen sats in high 90s on room air. ECG showed sinus rhythm with a rate of 67 and no acute ischemic changes. Chest xray was unremarkable. Labs were significant for mild leukocytosis (12.5), lactic acidosis (5.7) with anion gap of 24, and hyperglycemia (232). Review of Systems: A comprehensive review of systems was conducted with the patient and found to be negative except as above in the History of Present Illness. PMH Past Medical History GERD w/ho Huerta's esophagus prostate cancer s/p radiation CHF hypertension VERENA hiatal hernia s/p RPR/Vagotomy liver disease s/p partial liver resection kidney stones back pain, anxiety depression GI stromal tumor h/o " gallbladder disease" . Surgical History Tonsils and adenoids in 1985 for obstructive sleep apnea Uvulectomy in 1985 for obstructive sleep apnea C6 spine cervical fusion, anterior approach Lumbar spine surgery Pilonidal cyst in 1986 Hiatal hernia in 1990 patient underwent a vagotomy and surgery for 7 ulcers Right wrist surgery for a ganglion cyst Liver resection . Home Medications Fluoxetine 20 MG PO DAILY Lipase/Protease/Amylase 2 CAPSULE PO TID Methylphenidate 10 MG PO Q4 Omeprazole 40 MG PO DAILY Ranitidine 150 MG PO HS Tamsulosin 0.4 MG PO DAILY [id number] MG PO BID PRN For Anxiety Furosemide 40 MG PO DAILY PRN edema Potassium Citrate ER 15 MEQ PO DAILY PRN with furosemide Allergies: Coded Allergies: cephalexin (Verified Allergy, Intermediate, lips swelled and itching, 03/17) Family History Family History Father - COPD and VERENA, at 90 Mother- Breast cancer, at 74 Maternal uncle's- Colon and Pancreatic cancer Sister- Basal cell carcinoma, alive and well . Social History Hx Alcohol Use: NoHx Substance Use: NoHx Tobacco Use: Yes Smoking Status: Former Smoker Exam Vital Signs Vital Sign - Last Date Time Temp Pulse Resp B/P Pulse Ox O2 Delivery O2 Flow Rate FiO2 03/17/17 09:59 66 17 149/69 98 Nasal Cannula 1 General: Alert, Oriented X3 Eyes: Scleral Anicteric Mouth: Mucous Membranes Dry Chest & Lungs: Clear to auscultation & percussion Cardiovascular: Regular Rate/Rhythm Abdomen: Tender (poorly localized, diffusely tender), Non-distended, No masses Extremities: No cyanosis/clubbing/edma bilat Neurological: Grossly Neurologically Intact Lab and Diagnostics Labs Laboratory Tests Test 03/17/17 09:00 03/17/17 09:44 03/17/17 11:05 03/17/17 11:25 White Blood Count 12.5th/mm3 (3.8-10.1) Red Blood Count 4.80mil/mm3 (4.40-5.80) Hemoglobin 13.8g/dL (13.8-17.2) 14.1g/dL (13.8-17.2) 13.0g/dL (13.8-17.2) Hematocrit 42.2% (41.0-50.0) 42.0% (41.0-50.0) 39.2% (41.0-50.0) Mean Corpuscular Volume 87.9fL (81-100) Mean Corpuscular Hemoglobin 28.8pg (27.0-35.0) Mean Corpuscular Hemoglobin Concent 32.7% (32.0-37.0) Red Cell Distribution Width 12.6% (12.3-15.4) Platelet Count 377bil/L (150-400) Neutrophils (%) (Auto) 78.4% (40-74) Lymphocytes (%) (Auto) 16.5% (14-46) Monocytes (%) (Auto) 3.8% (4-12) Eosinophils (%) (Auto) 0.8% (0-5) Basophils (%) (Auto) 0.2% (0-3) Prothrombin Time 9.8sec (8.1-12.5) Prothromb Time International Ratio 0.94ratio Sodium Level 136mEq/L (134-144) Potassium Level 4.7mEq/L (3.5-5.2) Chloride Level 96mEq/L (97-108) Carbon Dioxide Level 16mmol/L (18-29) Blood Urea Nitrogen 16mg/dL (8-27) Creatinine 1.12mg/dL (0.76-1.27) Estimat Glomerular Filtration Rate 71mL/min (>59) Glucose Level 232mg/dL (60-99) Lactic Acid Level 5.7mmol/L (0.4-2.0) Calcium Level 9.7mg/dL (8.5-10.1) Magnesium Level 1.9mg/dL (1.6-2.6) Total Bilirubin 0.3mg/dL (0.0-1.2) Aspartate Amino Transf (AST/SGOT) 27U/L (0-50) Alanine Aminotransferase (ALT/SGPT) 21U/L (0-44) Alkaline Phosphatase 126U/L (25-160) Troponin T 0.010ug/L (0.0-0.011) Total Protein 7.9g/dL (6.4-8.4) Albumin 3.7g/dL (3.4-5.0) Urine Color Straw (YELLOW) Urine Appearance Hazy (CLEAR,HAZY) Urine pH 8.5 (5.0-8.0) Urine Specific [place] 1.015 (1.003-1.035) Urine Protein Negativemg/dL (NEG,TRACE) Urine Glucose (UA) 100mg/dL (NEGATIVE) Urine Ketones 15mg/dL (NEGATIVE) Urine Occult Blood Negative (NEGATIVE) Urine Nitrite Negative (NEGATIVE) Urine Bilirubin Negative (NEGATIVE) Urine Urobilinogen Normalmg/dL (NORMAL) Urine Leukocyte Esterase Negative (NEGATIVE) Urine RBC 0-2/hpf (0-2) Urine WBC 0-5/hpf (0-5) Urine Epithelial Cells Occasional/hpf (NONE-MOD) Urine Crystals None seen (NONE SEEN) Urine Bacteria Few/hpf (NONE-FEW) Urine Hyaline Casts None/lpf (NONE) Urine Granular Casts None seen (NONE SEEN) Urine Waxy Casts None seen (NONE SEEN) Urine Red Blood Cell Casts None seen (NONE SEEN) Urine White Blood Cell Casts None seen (NONE SEEN) Urine Mucus None seen (None Seen) Urine Trichomonas None seen (NONE SEEN) Urine Yeast None (NONE SEEN) Urinalysis Comment None Urine Culture Reflexed Not indicated Result Diagram: 03/17/17 0944 03/17/17 0900 X-Rays, CTs and MRIs 03/17/17 -- CT ABDOMEN AND PELVIS WITH CONTRAST IMPRESSION: 1. Descending and transverse colitis with no perforation, obstruction, or drainable fluid collections. This may represent ischemic colitis although the celiac axis, superior and inferior mesenteric arteries are grossly patent on this non-angiographic study. No portal venous gas. Infectious colitis is also possible. 2. Postoperative changes of previous gastric stromal tumor removal. 3. Findings discussed in person with Dr. Bland at 10:45 AM on 03/17/2017. Approved by: Avtar Dias M.D. on 03/17/2017 at 10:52 Assessment & Plan Assessment 61-year-old male who presented to the emergency department with one day history of hematemesis and abdominal pain. Patient with with hx of GIST s/p resection, Huerta's esophagus, prostate cancer s/p radiation therapy and [facility] admissions for lower GI bleeding secondary to radiation protitis and hematemesis with no source for bleeding identified on recent EGD (03/10/17). Acute colitis, ischemic vs infectious - Based on the patient's history and presentation it appears more likely due to ischemia. He is afebrile with mildly elevated leukocytosis and reports constipation but no diarrhea, melena, or hematochezia and lactic acid is elevated. - Reviewed CT findings with radiology, which showed ascending and transverse colonoic wall thickening consistent with colitis and a distinct cutoff, which may represent ischemic colitis. However celiac axis, SMA and PITO were grossly patent. This was a non-angiographic study but infectious etiology remains possible. - Hemodynamically stable without overt signs of active bleeding. H/H stable. RECOMMENDATIONS: - Start broad-spectrum antibiotic empirically, recommend Zosyn - Continue supportive care - Unless patient has recurrent hematemesis and/or hematochezia/melena as long as he is hemodynamically stable and maintaining H/H, will not pursue endoscopy at this time. - Monitor H/H, repeat CBC. Consider stool cultures, fecal leukocytes to rule out infection if clinically does not start to improve - Colonoscopy on 03/10 with poor prep but visualized colon appeared unremarkable and no large lesions were seen. - Will consider repeat colonoscopy if patient develops hematochezia. Otherwise this can likely be completed as an outpatient. Additional problems: -History of GIST -GERD with Huerta's esophagus -Prostate cancer -Hypertension -VERENA with pulmonary hypertension complicated by history of right-sided heart failure and bilateral leg edema -History of hiatal hernia s/p RPR/Vagotomy -Anxiety, depression and PTSD . Problems: Danelle Moncada DO Mar 17, 2017 10:34
[2017-03-17 12:16] LABS: Phosphorus 2.2 mg/dL (2.5-4.9)
[2017-03-17] MEDS: Ondansetron 2 mg/mL 2 mL Inj IVPUSH PRN (12:41)
[2017-03-17] MEDS: HYDROmorphone 0.5 mg/0.5 mL iSecure Syringe IVPUSH PRN ×3 (13:41→21:36)
[2017-03-17] MEDS: Cefepime Inj 2,000 MG in Dextrose 5% Minibag Plus 100 ML IV SCH ×2 (14:05→20:37)
[2017-03-17] MEDS ORDERED: metroNIDAZOLE Inj 500 MG in IV Premix 1 EACH IV SCH (14:30)
--- NOTE | 2017-03-17 14:33 | PCM.HPMED ---
Subjective Date of Service Mar 17, 2017 Primary Provider: Admitting Physician: Edson Valladares MD Primary Care Physician: Kelsey Ervin MD Attending Physician: Edson Valladares MD Admit Status: From the Emergency Department Chief Complaint: Abdominal pain History of Present Illness: Dylan Anderson is a 61-year-old gentleman with a history of GI stromal tumor post resection in 2013, GERD, Huerta's esophagus, hypertension, VERENA, CHF, prostate cancer previously receiving radiation in December 2016 and [facility] admissions for lower GI bleeding secondary to radiation proctitis as well as hematemesis who presented to the emergency department with abdominal pain and hematemesis that started on March 17 at 3 AM. The patient describes the abdominal pain is both sharp and achy and rated at 7 out of 10 which becomes 9 out of 10 with palpation. The patient states that it feels generalized in the middle of his abdomen however it seems to radiate upwards towards his*. Patient denies any history of abdominal pain similar to this in the past. The patient admits to starting vomiting overnight with at least 10 episodes with several noted hematemesis. The patient also admits to some diarrhea with mild mixed hematochezia noted. The patient has been seen twice within the last several months for GI bleed however no source of bleeding has been noted. The patient had a colonoscopy 2 weeks ago on 03/10/17 that was indeterminate due to poor bowel prep. Most recently on 01/12 after presenting to the ED with hematemesis, an EGD showed surgical changes consistent with prior gastrointestinal stromal tumor resection surgery of his stomach, Huerta's esophagus but no old or fresh blood was visualized and a source for his hematemsis at that time was not identified. Review of Systems: A comprehensive review of systems is obtained and all are negative except for what is included in the history of present illness. Allergies Coded Allergies: cephalexin (Verified Allergy, Intermediate, lips swelled and itching, 03/17) Home Medications Fluoxetine 20 MG PO DAILY Lipase/Protease/Amylase 2 CAPSULE PO TID Methylphenidate 10 MG PO Q4 Omeprazole 40 MG PO DAILY Ranitidine 150 MG PO HS Tamsulosin 0.4 MG PO DAILY [id number] MG PO BID PRN For Anxiety Furosemide 40 MG PO DAILY PRN edema Potassium Citrate ER 15 MEQ PO DAILY PRN with furosemide PMH GERD w/ho Huerta's esophagus prostate cancer status post radiation therapy last treatment in December 2016 CHF hypertension VERENA hiatal hernia s/p RPR/Vagotomy done at [facility] in 1990 liver disease s/p partial liver resection kidney stones back pain, anxiety depression GI stromal tumor h/o " gallbladder disease" Surgical History Tonsils and adenoids in 1985 for obstructive sleep apnea Uvulectomy in 1985 for obstructive sleep apnea C6 spine cervical fusion, anterior approach Lumbar spine surgery Pilonidal cyst in 1986 Hiatal hernia in 1990 patient underwent a vagotomy and surgery for 7 ulcers Right wrist surgery for a ganglion cyst Gastrointestinal stromal tumor resection with partial gastrectomy and left lobe liver resection Family History Father - COPD and VERENA, at 90 Mother- benign Breast tumor, at 74 For individual Maternal uncle's- Colon and Pancreatic cancer Sister- Basal cell carcinoma, alive and well Social History Occupation: retired Hx Alcohol Use: No Hx Substance Use: No Hx Tobacco Use: Yes Smoking Status: Former Smoker Years of Smokin Living Arrangement: Alone Exam Vital Signs Vital Sign - Last Date Time Temp Pulse Resp B/P Pulse Ox O2 Delivery O2 Flow Rate FiO2 03/17/17 11:54 36.4 65 14 145/89 100 Nasal Cannula 1.00 Exam General: Senior male appearing older than stated age in moderate distress due to nausea and abdominal pain Eyes: Pupils equal round and reactive to light, extraocular motion intact, anicteric sclera, noninjected conjunctiva HENT: Normocephalic atraumatic, moist mucous membranes without central cyanosis , oropharynx clear without purulent exudate or cobblestoning mucosa Neck: Supple, trachea midline, without thyromegaly or JVD Cardiovascular: Regular rate and regular rhythm, S1-S2 present, without murmurs rubs or gallops noted Lungs: Clear to auscultation bilaterally without wheezing rales or rhonchi Abdomen: Notable well-healed old laparotomy scar, Hypoactive bowel sounds, Soft , generalized tenderness worse in the epigastrium and on right side, nondistended, tympanic to percussion, without organomegaly Extremities: No cyanosis clubbing or edema noted, pulses intact bilaterally at dorsalis pedis and radial : No Sanon catheter in place Skin: Warm and dry Neuro: Nonfocal neurologic exam, able to move all extremities Psych: Normal mood and affect Lab and Diagnostics Result Diagram: 03/17/17 1125 03/17/17 0900 Assessment & Plan Dylan Anderson is a 61-year-old gentleman with a history of GI stromal tumor post resection in 2013, GERD, Huerta's esophagus, hypertension, VERENA, CHF, prostate cancer previously receiving radiation in December 2016 and [facility] admissions for lower GI bleeding secondary to radiation proctitis as well as hematemesis who presented to the emergency department with abdominal pain and hematemesis that started on March 17 at 3 AM. Severe Sepsis secondary to Acute colitis - Patient notes acute abdominal pain occurring at 3 AM on March 17 with recurrent episodes of vomiting with intermittent hematemesis as well as diarrhea with mixed hematochezia - White blood cell count of 12.5 with a lactic acid of 5.7 consistent with possible infectious etiology, proCalitonin remains negative at 0.08 - CT with contrast shows ascending and transverse colitis with mild thickening likely ischemic versus infectious - Patient denies any exposure to raw chicken, under cooked ground beef, old mayonnaise or other etiologies of infectious colitis and knows no other persons with similar symptoms - Ischemic colitis is possible given the patient's ongoing prostate cancer likely hypercoagulable state, with 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 who will defer to GI - Gastrointestinal consult placed in ED and the case was discussed extensively with Dr. Michael Bland - Broad-spectrum antibiotics initiated for gram-negative coverage and anaerobic coverage with cefepime and metronidazole - Patient is made nothing by mouth except for meds - No plans for surgery intervention at this time - Trend lactic acid every 2 - Lactated Ringer's at 125 mL per hour Acute GI bleed with Hematemesis and hematochezia - History of GI scope in December 2016 which failed to reveal any source - The patient has a recent history of GERD as well as distant history of gastric ulcers requiring vagotomy at [facility] in 1990 as well as 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 Michael Bland - Patient started on Protonix 80 mg in ED - Continue Protonix twice a day - Patient to remain nothing by mouth - GI has no plans to scope at this time pending further drop in hemoglobin and hematocrit Chronic prostate cancer - status post radiation therapy last treatment in December 2016 - Patient states that he has not been completely cleared by oncology - Continue outpatient tamsulosin History of congestive heart failure - No records of prior echocardiogram in [facility] - Patient has no stigmata of acute exacerbation including no peripheral edema, JVD, pleural effusion - Conservative fluid management for the above, limiting IV hydration once lactic acid normalized - Monitor for signs of fluid overload Acute on Chronic hypertension - Blood pressure of 140s over 60s on admission - Records indicate the patient is currently not on any blood pressure medications - Labetalol 10 mg IV for blood pressure greater than 150 with heart rates greater than 70 History of Obstructive sleep apnea - Continuous O2 monitoring overnight Chronic anxiety - Continue outpatient fluoxetine and diazepam DVT prophylaxis: SCDs given GI bleed GI prophylaxis: Protonix BID CODE STATUS is full The patient is admitted to the [facility] under inpatient status with expected length of stay greater than to midnights given presenting symptoms, likely diagnosis, possible complications, required treatments. Pain Evaluation: Adequate Pain Control GI Prophylaxis: Proton Pump Inhibitor VTE Prophylaxis Indicated: Contraindicated VTE Prophylaxis: SCDs Resuscitation Status: CPR: Attempt Resuscitation Attending Statement The patient was seen and examined together with Dr. Msoqueda on 03/17/2017 and I agree with the history, exam and plan as outlined in the note above. . Ronny Mosqueda DO Mar 17, 2017 14:33 Edson Valladares MD Mar 18, 2017 17:39
[2017-03-17] MEDS ORDERED: PEG/Electrolytes 4,000 mL Solution PO ONE (14:55)
[2017-03-17] MEDS ORDERED: Glucose 40% Oral Gel 15 Gm Tube PO PRN (15:05)
[2017-03-17] MEDS ORDERED: Labetalol 5 mg/mL 20 mL Inj IVPUSH ONE (15:45)
[2017-03-17] MEDS ORDERED: Labetalol 5 mg/mL 20 mL Inj IVPUSH PRN (15:50)
[2017-03-17] MEDS: Promethazine Inj 25 MG in Dextrose 5%-Pha MIX 50 ML IV PRN (16:06)
--- NOTE | 2017-03-17 16:40 | CONS ---
[address] [address] CONSULTATION REPORT PATIENT: JOSE WATERMAN : 1955 MR#: [id number] ADMIT: 03/17/2017 JOB ID: [id number] DATE OF SERVICE: 03/17/2017 The patient seen for concerns of ischemic colitis and potential surgical abdomen. This is a 61-year-old male. Had a history of malignant GIST tumor of the stomach and underwent partial gastrectomy with no evidence of recurrence. Has had concerns for GI bleeds in the past, predominantly from the stomach. Reports he had been vomiting over the last 24 hours and reports that there was blood in the emesis. No bowel movements except for maybe a scant passage of stools over the last 24 hours, and although he reports not able to eat very much, he was able to eat a peanut butter sandwich early this morning. No witnessed emesis since hospitalization. Complained of abdominal pain as well. Current vital signs: Pulse of 65, BP 145/89, and he is 100% on 1 L nasal cannula. Laboratory work was startling for a venous lactate of 5.7 on presentation. With hydration, it is down to a 2.2. Other labs are pending at this time. His coags are negative as is his urine. He was in on the 8th of this month, and at that time, his lactic acid was 4.3. He was complaining of rectal bleeding then. Remainder of his electrolytes and liver function tests as well as renal are within normal limits. CT scan read as colitis of the ascending and transverse colon. No free fluid. Otherwise, normal-looking CT of the abdomen and pelvis. The thickness of the wall of the colon in those areas is minimal. PHYSICAL EXAM: The patient neurologically, [place] Coma Scale of 15. Speech is clear and appropriate. Gross motor skills are intact. Head is atraumatic, normocephalic. Eyes: Sclerae clear, no jaundice. Neck is supple. No adenopathy. Trachea midline. Cardiac: Heart is regular rate and rhythm. Respiratory: Lungs bilaterally clear. No wheezes, but decreased bases bilaterally. GI: Abdomen is obese and soft with a mild right paraumbilical tenderness. No rebound. No surgical abdomen. No peritonitis. Extremities: Warm and well perfused. Skin is warm and dry to the touch. Impression: Not a surgical abdomen. I query whether he is truly having bloody emesis given his stable hematocrits even since the 8th of this month. He is definitely dehydrated and responding well to fluids at time. PAST MEDICAL HISTORY: For GIST tumor. Reflux with a Huerta's esophagus seen on EGD. History of prostate status post radiation. History of CHF, hypertension. History of VERENA. History of hiatal hernia. Status post vagotomy. Liver disease with partial liver resection. Kidney stones. Back pain. Anxiety and depression and history of gallbladder disease. PAST SURGICAL HISTORY: For tonsils and adenoids. C6 ACDF, pilonidal cyst, hiatal hernia, right wrist surgery, liver resection. FAMILY HISTORY: Noncontributory. Smoking history: He is a prior smoker. No evidence of current smoking to my understanding. SOCIAL HISTORY: Is . Lives locally. REVIEW OF SYSTEMS: Negative for rectal bleeding. Positive for nausea, vomiting, hematemesis, abdominal pain, dizziness and sweating. Otherwise remaining 14 point review within normal limits. IMPRESSION: Report of bloody emesis and abdominal pain. Possible colitis but it is subtle on CT to my read. No acute abdomen at this time. No surgical intervention required. Stable hbg and hct with the report of bloody emesis, hydration will reveal his true levels. RECOMMENDATIONS: Continue with current plan of hydration. Will start him on some clear liquids and again if he is tolerating clear liquids, consideration for bowel prep and colonoscopy this hospital stay under more controlled circumstances. CC: Dr. Yovanny GARCIA
[2017-03-17] MEDS: Sodium Chloride LOK Flush 10 mL Syringe IVFLUSH SCH (16:48)
[2017-03-17] MEDS: Insulin LISPRO 300 Unit/3 mL Inj SUBQ SCH ×2 (17:30→21:28)
--- NOTE | 2017-03-17 18:59 | NUR ---
Admit note Patient admitted from [facility] ER, transferred via gurney. Patient oriented to call light, tv, phone, bathroom and poc. Protonix gtt infusing apon arrival to room. Patient c/o nausea with dry heaves, abd and back pain. Zofran and Phenergan x 1 given and Dilaudid x 2 given with moderate effect. VSS tele SR 60-70's.
[2017-03-17] MEDS: Pantoprazole 4 mg/mL 10 mL Inj IVPUSH SCH (19:23)
[2017-03-17] MEDS ORDERED: Dextrose 10% 250 ML IV PRN (20:25)
[2017-03-17] MEDS ORDERED: Famotidine Inj 20 MG in IV Premix 1 EACH IV SCH (20:30)
[2017-03-18] VITALS (11 sets, daily range): BP systolic 97–130; BP diastolic 60–89; PULSE 62–90; RESP 15–20; O2SAT 95–99
[2017-03-18] MEDS: metroNIDAZOLE Inj 1,000 MG in IV Premix 1 EACH IV SCH ×2 (00:21→12:46)
[2017-03-18] MEDS: Ondansetron 2 mg/mL 2 mL Inj IVPUSH PRN ×2 (00:41→16:49)
[2017-03-18] MEDS: HYDROmorphone 0.5 mg/0.5 mL iSecure Syringe IVPUSH PRN ×7 (00:41→21:20)
[2017-03-18] MEDS: Sodium Chloride LOK Flush 10 mL Syringe IVFLUSH SCH ×4 (00:42→21:21)
[2017-03-18] MEDS: Lactated Ringer's 1,000 ML IV SCH ×2 (01:38→21:20)
[2017-03-18 04:45] LABS: INR 0.94 ratio
[2017-03-18 05:07] LABS: BASOPHILS % (AUTO) 0.4 % (0-3); MONOCYTES % (AUTO) 10.6 % (4-12); Mean Corpuscular Hemoglobin 30.7 pg (27.0-35.0); Mean Corpuscular Volume 89.2 fL (81-100); NEUTROPHILS % (AUTO) 66.9 % (40-74); Platelet Count 226 bil/L (150-400)
--- NOTE | 2017-03-18 05:13 | NUR ---
Febrile / Pain / No Beeding / Tele / VSS Pt had low grade fever of 37.4 C. Pt medicated with PO Tylenol 975mg and low grade fever resolved for the rest of the night, last Temp was 36.8 C. Pt c/o mild nausea without emisis. Medicated with IV Zofran 4 mg, X1 dose and nausea resolved. Pt c/o abdomen / back pain 6-7 out of 10. Pt medicated with IV Dilaudid 1mg about every 3 hours during the night for pain relief. Pt medicated with Valium 15mg for anxiety at HS, with no further c/o anxiety. No s/sx of bleeding noted. No BM tonight. No c/o chest pain, Tele SR 60-90s per [facility]. VS stable. O2 @ 2L NC on while sleeping, with continuous pulse oximetry on, SpO2 sats 96-98%. IV Antibiotics infused per MD orders. Continuous IV LR at 60 mls/hour.
[2017-03-18] MEDS: Cefepime Inj 2,000 MG in Dextrose 5% Minibag Plus 100 ML IV SCH ×3 (05:19→21:21)
[2017-03-18] MEDS: Promethazine Inj 25 MG in Dextrose 5%-Pha MIX 50 ML IV PRN ×2 (07:35→21:20)
--- NOTE | 2017-03-18 07:36 | PCM.PNMED ---
Subjective Date of Service Mar 18, 2017 Subjective Dylan Anderson is a 61-year-old gentleman with a history of GI stromal tumor post resection in 2013, GERD, Huerta's esophagus, hypertension, VERENA, CHF, prostate cancer previously receiving radiation in December 2016 and [facility] admissions for lower GI bleeding secondary to radiation proctitis as well as hematemesis who presented to the emergency department with abdominal pain and hematemesis that started on March 17 at 3 AM. Today, patient notes that he feels so much better than yesterday. He reports that he still has abdominal pain located centrally, upper and lower abdomen. He states that he was able to pass gas today. He has not had any bowel movements yet today. His appetite has increased and he has been able to tolerate clear liquids. She denies vomiting but reports nausea that is alleviated by Zofran. He also notes that he has back pain status post back surgery. There were no acute events overnight. On review of systems, patient denies headache, visual changes, chest pain, shortness of breath and dysuria. Exam Vital Signs Vital Sign - Last Date Time Temp Pulse Resp B/P Pulse Ox O2 Delivery O2 Flow Rate FiO2 03/18/17 05:53 90 03/18/17 00:27 Supplement Oxygen 03/18/17 00:27 36.9 18 99/60 97 2.00 Intake and Output 03/17/17 03/17/17 03/18/17 Cumulative From/Thru 15:00 23:00 07:00 03/17/17 08:39 - 03/18/17 06:05 Intake Total 2000 ml 747 ml 816 ml 3563 ml Output Total 550 ml 600 ml 1150 ml Balance 2000 ml 197 ml 216 ml 2413 ml Intake Oral 0 ml 50 ml 50 ml IV Total 2000 ml 747 ml 766 ml 3513 ml Output Urine Total 550 ml 600 ml 1150 ml # Voids 2 2 Exam General: Patient is lying comfortably on bed, AAOX3, not in acute distress, cooperative and pleasant. HEENT: head normocephalic and atraumatic, PERRLA, EOMI, no scleral icterus, noninjected conjunctiva Neck: neck supple, non-tender, no lymphadenopathy, trachea midline, no JVD CV: regular rate and rhythm, s1 and s2 heard, no murmur, radial pulses 2+ and equal bilaterally, no rubs or gallops, no edema Lungs: Clear to auscultation bilaterally, no wheezes, rales or rhonchi, no increased work of breathing Abdomen:hypoactive bowel sounds on 4Q, soft, non-distended, tender to palpation of R >L upper and lower quadrants of the abdomen as well as mid-epigastric region, no organomegally, evidence of well-healed laparotomy incision scar Skin: warm and dry, multiple tattoos Musculoskeletal: 5/5 UE and LE strength bilaterally, full ROM bilaterally Neuro: Grossly neurologically intact, cranial nerves II through XII intact, no dyskinesia, dysmetria, or dysdiadochokinesia noted, sensation intact in extremities Psych: Normal mood and affect IVs and Medications Medications Reviewed: Medications were reviewed in detail Medications High risk medications include Valium Lab and Diagnostics Laboratory Tests Test 03/17/17 14:30 03/17/17 16:04 03/18/17 04:15 Lactic Acid Level 2.8mmol/L (0.4-2.0) 1.8mmol/L (0.4-2.0) 0.9mmol/L (0.4-2.0) White Blood Count 8.0th/mm3 (3.8-10.1) Red Blood Count 4.24mil/mm3 (4.40-5.80) Hemoglobin 13.0g/dL (13.8-17.2) Hematocrit 37.8% (41.0-50.0) Mean Corpuscular Volume 89.2fL (81-100) Mean Corpuscular Hemoglobin 30.7pg (27.0-35.0) Mean Corpuscular Hemoglobin Concent 34.4% (32.0-37.0) Red Cell Distribution Width 12.9% (12.3-15.4) Platelet Count 226bil/L (150-400) Neutrophils (%) (Auto) 66.9% (40-74) Lymphocytes (%) (Auto) 20.0% (14-46) Monocytes (%) (Auto) 10.6% (4-12) Eosinophils (%) (Auto) 1.0% (0-5) Basophils (%) (Auto) 0.4% (0-3) Prothrombin Time 10.0sec (8.1-12.5) Prothromb Time International Ratio 0.94ratio Activated Partial Thromboplast Time 19.7sec (22.8-33.0) Sodium Level 140mEq/L (134-144) Potassium Level 3.9mEq/L (3.5-5.2) Chloride Level 100mEq/L (97-108) Carbon Dioxide Level 26mmol/L (18-29) Blood Urea Nitrogen 13mg/dL (8-27) Creatinine 1.13mg/dL (0.76-1.27) Estimat Glomerular Filtration Rate 70mL/min (>59) Glucose Level 91mg/dL (60-99) Calcium Level 8.7mg/dL (8.5-10.1) Total Bilirubin 0.4mg/dL (0.0-1.2) Aspartate Amino Transf (AST/SGOT) 11U/L (0-50) Alanine Aminotransferase (ALT/SGPT) 16U/L (0-44) Alkaline Phosphatase 95U/L (25-160) Total Protein 6.3g/dL (6.4-8.4) Albumin 3.3g/dL (3.4-5.0) Procalcitonin 0.11ng/mL (0.00-0.08) Microbiology 03/17/17 Blood Culture - Preliminary, Resulted NO GROWTH AFTER 24 HOURS Result Diagram: 03/18/17 0415 03/18/17 0415 X-Rays, CTs and MRIs PROCEDURE: CT ABDOMEN AND PELVIS WITH CONTRAST ([id number]) IMPRESSION: 1.Ascending and transverse colitis with no perforation, obstruction, or drainable fluid collections. This may represent ischemic colitis although the celiac axis, superior and inferior mesenteric arteries are grossly patent on this non-angiographic study. No portal venous gas. Infectious colitis is also possible. 2. Postoperative changes of previous gastric stromal tumor removal. 3. Findings discussed in person with Dr. Bland at 10:45 AM on 03/17/2017. ADDENDUM: Please note, abnormal wall thickening and enhancement affects the ASCENDING and transverse colon. Dictated by: Avtar Dias M.D. on 03/17/2017 at 14:47 PROCEDURE: X-RAY CHEST ONE VIEW, PORTABLE ([id number]) IMPRESSION: No radiographic evidence of acute cardiopulmonary pathology. Dictated by: Avtar Dias M.D. on 03/17/2017 at 9:23 Assessment & Plan Dylan Anderson is a 61-year-old gentleman with a history of GI stromal tumor post resection in 2013, GERD, Huerta's esophagus, hypertension, VERENA, CHF, prostate cancer previously receiving radiation in December 2016 and [facility] admissions for lower GI bleeding secondary to radiation proctitis as well as hematemesis who presented to the emergency department with abdominal pain and hematemesis that started on March 17 at 3 AM. Surgery has been following the patient and does not believe that there are any indications for surgical interventions at this time. In addition, per recommendations of gastroenterology, we will continue to monitor H/H and look for any signs of bleeding. They will not be pursuing EGD at this time and will consider this as an outpatient procedure as long as he is hemodynamically stable. The goal for today is to advance diet as tolerated, monitor H/H, continue IV PPI, continue antibiotics, control nausea and abdominal pain. Patient will likely discharge in 1-2 days. Severe Sepsis secondary to Acute colitis - Patient notes acute abdominal pain occurring at 3 AM on March 17 with recurrent episodes of vomiting with intermittent hematemesis as well as diarrhea with mixed hematochezia - White blood cell count of 12.5 with a lactic acid of 5.7 consistent with possible infectious etiology, proCalitonin remains negative at 0.08 -Today, WBC normalized to 8.0, lactic acid normal at 0.9 - CT with contrast shows ascending and transverse colitis with mild thickening likely ischemic versus infectious - Patient denies any exposure to raw chicken, under cooked ground beef, old mayonnaise or other etiologies of infectious colitis and knows no other persons with similar symptoms - Ischemic colitis is possible given the patient's ongoing prostate cancer likely hypercoagulable state, with 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 who will defer to GI. There are no indications for surgical intervention at this time. - Gastrointestinal consult placed in ED and the case was discussed extensively with Dr. Michael Bland -Per GI, Continue supportive care especially with IV hydration and no indication to do EGD at this time as long as patient is hemodynamically stable. - Patient has been started on clear liquid diet. 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 Michael Bland - Patient started on Protonix 80 mg in ED - Continue Protonix twice a day - GI has no plans to scope at this time pending further drop in hemoglobin and hematocrit Chronic prostate cancer - status post radiation therapy last treatment in December 2016 - Patient states that he has not been completely cleared by oncology - Continue outpatient tamsulosin History of congestive heart failure - No records of prior echocardiogram in [facility] - Patient has no stigmata of acute exacerbation including no peripheral edema, JVD, pleural effusion - Conservative fluid management for the above, limiting IV hydration once lactic acid normalized - Monitor for signs of fluid overload Acute on Chronic hypertension - Blood pressure of 140s over 60s on admission - Records indicate the patient is currently not on any blood pressure medications - Labetalol 10 mg IV for blood pressure greater than 150 with heart rates greater than 70 History of Obstructive sleep apnea - Continuous O2 monitoring overnight Chronic anxiety - Continue outpatient fluoxetine and diazepam DVT prophylaxis: SCDs given GI bleed GI prophylaxis: Protonix BID CODE STATUS is full Disposition: The goal for today is to advance diet as tolerated, monitor H/H, continue antibiotics, start IV PPI, control nausea and abdominal pain. Patient will likely discharge in 1-2 days. Pain Evaluation: Adequate Pain Control GI Prophylaxis: Proton Pump Inhibitor VTE Prophylaxis: SCDs Resuscitation Status: CPR: Attempt Resuscitation Attending Statement The patient was seen and examined together with Dr. Acosta on 03/18/2017 and I agree with the history, exam and plan as outlined in the note above. . Rosa Acosta DO Mar 18, 2017 07:36 Edson Valladares MD Mar 18, 2017 17:41
[2017-03-18] MEDS: Insulin LISPRO 300 Unit/3 mL Inj SUBQ SCH ×4 (08:00→21:21)
[2017-03-18] MEDS ORDERED: ATOR20TA PO (08:20)
[2017-03-18] MEDS ORDERED: ASPI-973 PO (08:20)
[2017-03-18] MEDS ORDERED: HYDR-3939 PO (08:20)
[2017-03-18] MEDS ORDERED: CHOL100045 PO (08:20)
[2017-03-18] MEDS ORDERED: CYA1000I IM (08:20)
[2017-03-18] MEDS ORDERED: PRAZ1CAP2 PO (08:20)
[2017-03-18] MEDS ORDERED: DIPH1TAB PO (08:20)
[2017-03-18] MEDS: Pantoprazole 4 mg/mL 10 mL Inj IVPUSH SCH ×2 (10:00→16:48)
--- NOTE | 2017-03-18 11:00 | PCM.PNMED ---
Subjective Date of Service Mar 18, 2017 Subjective Patient started to pass this morning. No bowel movement. Abdominal pain better. Exam Vital Signs Vital Sign - Last Date Time Temp Pulse Resp B/P Pulse Ox O2 Delivery O2 Flow Rate FiO2 03/18/17 08:33 67 03/18/17 07:30 36.7 15 123/89 98 Room Air 03/18/17 00:27 2.00 Intake and Output 03/17/17 03/17/17 03/18/17 Cumulative From/Thru 15:00 23:00 07:00 03/17/17 08:39 - 03/18/17 06:05 Intake Total 2000 ml 747 ml 816 ml 3563 ml Output Total 550 ml 600 ml 1150 ml Balance 2000 ml 197 ml 216 ml 2413 ml Intake Oral 0 ml 50 ml 50 ml IV Total 2000 ml 747 ml 766 ml 3513 ml Output Urine Total 550 ml 600 ml 1150 ml # Voids 2 2 Exam Patient is alert and oriented and appears comfortable. Head and neck no icterus Lungs clear Cardiovascular regular rhythm normal S1 and S2 Abdomen is soft mildly distended tender on the right side without firmness guarding rebound. Bowel sounds are now present. Extremities no pitting edema of the Ankles Skin shows no jaundice. Lab and Diagnostics Result Diagram: 03/18/17 0415 03/18/17 0415 Assessment & Plan 61-year-old male who presented to the emergency department with one day history of hematemesis 1 however no more episodes and abdominal pain. Patient with with hx of GIST s/p resection, Huerta's esophagus, prostate cancer s/p radiation therapy and [facility] admissions for lower GI bleeding secondary to radiation protitis and hematemesis with no source for bleeding identified on recent EGD (03/10/17). Patient was admitted at this time with severe abdominal pain and CT showing possible ischemic colitis with CT findings with radiology, which showed ascending and transverse colonoic wall thickening consistent with colitis and a distinct cutoff at the distal transverse colon, which may represent ischemic colitis. These had a cough is not usually seen with infection. He also had formed stools in the colon. However celiac axis, SMA and PITO were grossly patent. Radiology did not believe that CT angiogram necessary based on these findings. This morning, abdominal pain is better. He is passing gas although small amount. And he is starting to feel hungry. I count is normalized. H&H stable. No bowel movement. I think overall there is some improvement. Because the location of the inflammation is on the right side, prognosis is still guarded. RECOMMENDATIONS: -Continue antibiotics. - Continue supportive care especially with IV hydration. - Unless patient has recurrent hematemesis and/or hematochezia/melena as long as he is hemodynamically stable and maintaining H/H, will not pursue endoscopy at this time. We could pursue endoscopy once the colitis issue has stabilized. However if there is evidence of further hematemesis or decrease in hemoglobin , we will proceed with upper endoscopy. I think most likely the hematemesis was from some retching and possibly from a minor Nikki-Bruce tear. Recommend IV PPI for now. - Aware of patient starting on liquid diet. Patient was counseled to stop eating if he said starts having more pain. GI Prophylaxis: Proton Pump Inhibitor VTE Prophylaxis: SCDs Resuscitation Status: CPR: Attempt Resuscitation Michael Bland MD Mar 18, 2017 11:00
--- NOTE | 2017-03-18 11:20 | PROG NOTE ---
[address] [address] PROGRESS NOTE PATIENT: JOSE WATERMAN : 1955 MR#: [id number] ADMIT: 03/17/2017 JOB ID: [id number] DATE: 03/18/2017 SUBJECTIVE: The patient is seen in followup for Dr. Tubbs's consultation yesterday regarding possible ischemic colitis and potential surgical abdomen. At that point yesterday he was felt to have no acute surgical issues. He tells me that his pain is better today, he has not had any bloody stools. OBJECTIVE: His abdominal examination is relatively benign, without any significant tenderness to palpation or percussion. LABORATORY DATA: Show that his white count is down to 8, his platelet count is 226, his hematocrit is 37.8 after hydration. Chemistries this morning are normal. His procalcitonin, however, is mildly elevated at 0.11. IMPRESSION AND PLAN: A 61-year-old man with abdominal pain and tenderness resolving with a somewhat complex history of previous GIST tumor, previous hematemesis, and hematochezia. Currently awaiting decision regarding further endoscopy per GI. There is no indication for surgery and at this point General Surgery will sign off after discussion with the hospitalist service, but be available for re-consultation.
--- NOTE | 2017-03-18 17:23 | NUR ---
Pain/Nausea/Diet/Activity Patient a/o x 3, c/o back and abd pain q 2-3 hrs, Dilaudid given with moderate effect. Patient c/o nausea no emesis, Phenergan and zofran x 1 given with good effect. Abd soft, hypoactive bowel tones, no BM, passing min flatus. Patient carli soft diet well. Patient up indep in room, steady gait. VSS, tele SR. Patient has noted sleep apnea when sleeping, O2 @ 2 L nc applied while patient sleeping, sat 96-98%.
[2017-03-19] VITALS (7 sets, daily range): BP systolic 106–135; BP diastolic 67–80; PULSE 62–83; RESP 16–18; O2SAT 96–98
[2017-03-19] MEDS: metroNIDAZOLE Inj 1,000 MG in IV Premix 1 EACH IV SCH ×3 (01:56→23:22)
[2017-03-19] MEDS: HYDROmorphone 0.5 mg/0.5 mL iSecure Syringe IVPUSH PRN ×4 (04:26→20:53)
[2017-03-19] MEDS: Promethazine Inj 25 MG in Dextrose 5%-Pha MIX 50 ML IV PRN ×2 (04:26→20:49)
--- NOTE | 2017-03-19 05:27 | NUR ---
Pain / Nausea Pt c/o 01/09 pain to abdomen and radiating to back; 1mg IVP dilaudid administered x2 this shift. Phenergan infusions administered at same times for relief of nausea; pt able to rest between interventions. VSS, tele SR 60s-80s. Pt explicitly refused CPOX despite verbalizing an understanding of his chronic sleep apnea and need for monitoring.
[2017-03-19 05:33] LABS: BASOPHILS % (AUTO) 0.4 % (0-3); EOSINOPHILS % (AUTO) 2.9 % (0-5); MONOCYTES % (AUTO) 9.5 % (4-12); Mean Corpuscular Hemoglobin 28.8 pg (27.0-35.0); Mean Corpuscular Volume 92.3 fL (81-100); NEUTROPHILS % (AUTO) 66.1 % (40-74); Platelet Count 231 bil/L (150-400)
[2017-03-19] MEDS: Cefepime Inj 2,000 MG in Dextrose 5% Minibag Plus 100 ML IV SCH ×3 (06:05→20:48)
[2017-03-19] MEDS: Ondansetron 2 mg/mL 2 mL Inj IVPUSH PRN ×2 (07:55→14:24)
[2017-03-19] MEDS: Insulin LISPRO 300 Unit/3 mL Inj SUBQ SCH (08:00)
[2017-03-19] MEDS: Pantoprazole 4 mg/mL 10 mL Inj IVPUSH SCH ×2 (08:00→18:11)
[2017-03-19] MEDS: Sodium Chloride LOK Flush 10 mL Syringe IVFLUSH SCH ×3 (08:01→20:49)
--- NOTE | 2017-03-19 10:11 | PCM.PNMED ---
Subjective Date of Service Mar 19, 2017 Subjective Patient tolerating his diet. Pain is much better. He is passing a lot more gas. He has not had a bowel movement. Exam Vital Signs Vital Sign - Last Date Time Temp Pulse Resp B/P Pulse Ox O2 Delivery O2 Flow Rate FiO2 03/19/17 07:55 62 03/19/17 07:52 36.8 18 121/76 98 Room Air 03/18/17 00:27 2.00 Intake and Output 03/18/17 03/18/17 03/19/17 Cumulative From/Thru 15:00 23:00 07:00 03/17/17 08:39 - 03/19/17 06:43 Intake Total 1780 ml 1782 ml 7125 ml Output Total 700 ml 650 ml 2500 ml Balance 1080 ml 1132 ml 4625 ml Intake Oral 560 ml 680 ml 1290 ml IV Total 1220 ml 1102 ml 5835 ml Output Urine Total 700 ml 650 ml 2500 ml # Voids 3 5 Exam Patient is alert and oriented comfortable Head and neck no icterus Lungs clear anteriorly Cardiovascular regular rate and rhythm normal S1 and S2 Abdomen soft improved tenderness especially in the right side mild distention no guarding rebound firmness normal active bowel sounds Extremities no pitting edema ankles Skin shows no jaundice Lab and Diagnostics Result Diagram: 03/19/17 0510 03/19/17 0510 X-Rays, CTs and MRIs PROCEDURE: CT ABDOMEN AND PELVIS WITH CONTRAST ([id number]) IMPRESSION: 1.Ascending and transverse colitis with no perforation, obstruction, or drainable fluid collections. This may represent ischemic colitis although the celiac axis, superior and inferior mesenteric arteries are grossly patent on this non-angiographic study. No portal venous gas. Infectious colitis is also possible. 2. Postoperative changes of previous gastric stromal tumor removal. 3. Findings discussed in person with Dr. Bland at 10:45 AM on 03/17/2017. ADDENDUM: Please note, abnormal wall thickening and enhancement affects the ASCENDING and transverse colon. Dictated by: Avtar Dias M.D. on 03/17/2017 at 14:47 PROCEDURE: X-RAY CHEST ONE VIEW, PORTABLE ([id number]) IMPRESSION: No radiographic evidence of acute cardiopulmonary pathology. Dictated by: Avtar Dias M.D. on 03/17/2017 at 9:23 Assessment & Plan 61-year-old male who presented to the emergency department with one day history of hematemesis 1 however no more episodes and abdominal pain. Patient with with hx of GIST s/p resection, Huerta's esophagus, prostate cancer s/p radiation therapy and [facility] admissions for lower GI bleeding secondary to radiation protitis and hematemesis with no source for bleeding identified on recent EGD (03/10/17). Patient was admitted at this time with severe abdominal pain and CT showing possible ischemic colitis with CT findings with radiology, which showed ascending and transverse colonoic wall thickening consistent with colitis and a distinct cutoff at the distal transverse colon, which may represent ischemic colitis. These had a cough is not usually seen with infection. He also had formed stools in the colon. However celiac axis, SMA and PITO were grossly patent. Radiology did not believe that CT angiogram necessary based on these findings. This morning, abdominal pain is symmetrically improved compared to admission. Abdominal pain is in fact better than yesterday. He is passing about more gas. Again she now feels more hungry. White count has normalized. H&H fell. However there is no overt clinical signs of GI bleeding. I think we need to keep weight on his hemoglobin level. I would like to proceed with an EGD before he goes home. RECOMMENDATIONS: -Continue antibiotics. - Continue supportive care especially with IV hydration. - Continue IV PPI. Drop in hemoglobin noted however no clinical evidence of GI bleeding. Keep patient nothing by mouth at midnight. We will proceed with EGD tomorrow morning just because of one episode of hematemesis and no source was found last time. I really do not think this is a real drop in his hemoglobin however we will see what his hemoglobin level is tomorrow morning. - Aware the primary service will advance his diet. Patient was counseled to stop eating if he said starts having more pain - For his constipation, recommend stool softener such as MiraLAX twice a day and enemas. GI Prophylaxis: Proton Pump Inhibitor VTE Prophylaxis: SCDs Resuscitation Status: CPR: Attempt Resuscitation Michael Bland MD Mar 19, 2017 10:11
--- NOTE | 2017-03-19 14:18 | PCM.PNMED ---
Subjective Date of Service Mar 19, 2017 Subjective Overnight: No acute events Today: Patient states that the Dilaudid continues to help his pain which remains at 7 out of 10 without medication and improves to 5 out of 10 with Dilaudid. The patient also states the Dilaudid is helping his nightmares and PTSD due to his recent prostate radiation. The patient understands that he cannot go home on IV Dilaudid and is therefore willing to switch to oral oxycodone for pain management with Dilaudid for breakthrough. The patient states that he continues to have some nausea but was able to eat breakfast without issue. The patient understands that no surgery is indicated at this time. Patient has no questions at this time. Exam Vital Signs Vital Sign - Last Date Time Temp Pulse Resp B/P Pulse Ox O2 Delivery O2 Flow Rate FiO2 03/19/17 06:10 83 03/19/17 04:03 36.7 18 135/80 97 Room Air 03/18/17 00:27 2.00 Intake and Output 03/18/17 03/18/17 03/19/17 Cumulative From/Thru 15:00 23:00 07:00 03/17/17 08:39 - 03/19/17 06:43 Intake Total 1780 ml 1782 ml 7125 ml Output Total 700 ml 650 ml 2500 ml Balance 1080 ml 1132 ml 4625 ml Intake Oral 560 ml 680 ml 1290 ml IV Total 1220 ml 1102 ml 5835 ml Output Urine Total 700 ml 650 ml 2500 ml # Voids 3 5 Exam General: Senior male appearing older than stated age in no acute distress Eyes: Pupils equal round and reactive to light, extraocular motion intact, anicteric sclera, noninjected conjunctiva HENT: Normocephalic atraumatic, moist mucous membranes without central cyanosis , oropharynx clear without purulent exudate or cobblestoning mucosa Neck: Supple, trachea midline, without thyromegaly or JVD Cardiovascular: Regular rate and regular rhythm, S1-S2 present, without murmurs rubs or gallops noted Lungs: Clear to auscultation bilaterally without wheezing rales or rhonchi Abdomen: Notable well-healed old laparotomy scar, Hypoactive bowel sounds, Soft , generalized tenderness worse in the epigastrium and on right side, nondistended, tympanic to percussion, without organomegaly Extremities: No cyanosis clubbing or edema noted, pulses intact bilaterally at dorsalis pedis and radial : No Sanon catheter in place Skin: Warm and dry Neuro: Nonfocal neurologic exam, able to move all extremities Psych: Normal mood and affect Lab and Diagnostics Result Diagram: 03/19/1750903/19/17509 X-Rays, CTs and MRIs PROCEDURE: CT ABDOMEN AND PELVIS WITH CONTRAST ([id number]) IMPRESSION: 1.Ascending and transverse colitis with no perforation, obstruction, or drainable fluid collections. This may represent ischemic colitis although the celiac axis, superior and inferior mesenteric arteries are grossly patent on this non-angiographic study. No portal venous gas. Infectious colitis is also possible. 2. Postoperative changes of previous gastric stromal tumor removal. 3. Findings discussed in person with Dr. Bland at 10:45 AM on 03/17/2017. ADDENDUM: Please note, abnormal wall thickening and enhancement affects the ASCENDING and transverse colon. Dictated by: Avtar Dias M.D. on 03/17/2017 at 14:47 PROCEDURE: X-RAY CHEST ONE VIEW, PORTABLE ([id number]) IMPRESSION: No radiographic evidence of acute cardiopulmonary pathology. Dictated by: Avtar Dias M.D. on 03/17/2017 at 9:23 Assessment & Plan Dylan Anderson is a 61-year-old gentleman with a history of GI stromal tumor post resection in 2013, GERD, Huerta's esophagus, hypertension, VERENA, CHF, prostate cancer previously receiving radiation in December 2016 and [facility] admissions for lower GI bleeding secondary to radiation proctitis as well as hematemesis who presented to the emergency department with abdominal pain and hematemesis that started on March 17 at 3 AM. Severe Sepsis secondary to Acute colitis, present on admission, improving - Patient notes acute abdominal pain occurring at 3 AM on March 17 with recurrent episodes of vomiting with intermittent hematemesis as well as diarrhea with mixed hematochezia - White blood cell count of 12.5 with a lactic acid of 5.7 consistent with possible infectious etiology, proCalitonin remains negative at 0.08 - CT with contrast shows ascending and transverse colitis with mild thickening likely ischemic versus infectious - Patient denies any exposure to raw chicken, under cooked ground beef, old mayonnaise or other etiologies of infectious colitis and knows no other persons with similar symptoms - Ischemic colitis is possible given the patient's ongoing prostate cancer likely hypercoagulable state, with 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 who will defer to GI. There are no indications for surgical intervention at this time. - Gastrointestinal consult placed in ED and the case was discussed extensively with Dr. Michael Bland - Patient has been started on clear liquid diet. Advance diet as tolerated - Continue Broad-spectrum antibiotics initiated for gram-negative coverage and anaerobic coverage with cefepime and metronidazole, No plans for surgery intervention or colonoscopy at this time - Fleets enema avoid spasmodic medications like senna and docusate may consider adding MiraLAX - Patient will require 10 days of broad-spectrum antibiotics coverage until 03/26 , consider ciprofloxacin and metronidazole for gram-negative coverage and anaerobic coverage - Oxycodone for baseline pain with Dilaudid available when necessary plan to DC Dilaudid after EGD Acute GI bleed with Hematemesis and hematochezia, present on admission, improving - History of GI scope in December 2016 which failed to reveal any source - The patient has a recent history of GERD as well as distant history of gastric ulcers requiring vagotomy at [facility] in 1990 as well as 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 Michael Bland - Patient started on Protonix 80 mg in ED - Continue Protonix twice a day - GI would like to perform an EGD on March 20 given the hematemesis and history of gastric resection - Nothing by mouth after midnight Chronic prostate cancer, present on admission, stable - status post radiation therapy last treatment in December 2016 - Patient states that he has not been completely cleared by oncology - Continue outpatient tamsulosin History of congestive heart failure, present on admission, stable - No records of prior echocardiogram in [facility] - Patient has no stigmata of acute exacerbation including no peripheral edema, JVD, pleural effusion - Conservative fluid management for the above, limiting IV hydration once lactic acid normalized - Monitor for signs of fluid overload Acute on Chronic hypertension, present on admission, stable - Blood pressure of 140s over 60s on admission - Records indicate the patient is currently not on any blood pressure medications - Labetalol 10 mg IV for blood pressure greater than 150 with heart rates greater than 70 History of Obstructive sleep apnea, present on admission, stable - Continuous O2 monitoring overnight Chronic anxiety, present on admission, stable - Continue outpatient fluoxetine and diazepam DVT prophylaxis: SCDs given GI bleed GI prophylaxis: Protonix BID CODE STATUS is full Disposition: The goal for today is to advance diet as tolerated, monitor H/H, continue antibiotics, start oral PPI, control nausea and abdominal pain. Patient will likely discharge in 1-2 days. GI Prophylaxis: Proton Pump Inhibitor VTE Prophylaxis: SCDs Resuscitation Status: CPR: Attempt Resuscitation Ronny Mosqueda DO Mar 19, 2017 07:35
--- NOTE | 2017-03-19 16:58 | NUR ---
Social Work- Initial Assessment/Readiness for Discharge/Multidisciplinary Rounds. Data: See CM initial assessment. Pt is a 61 year old male admitted for GI Bleed per H&P. Pt's insurance is [employer]. Pt's PCP is Kelsey Ervin MD. Pt discussed in multidisciplinary rounds, likely to d/c in 1-2 days. Pt is not medically stable at this time. No SW needs identified in rounds. SW met with pt at bedside to discuss d/c planning, SW role explained. PT alert and oriented x3. Pt resides in [place] in an apartment alone where he is independent at baseline with ADL and self-care. Pt uses no DME at baseline, has a cane available for use at home. Pt drives. Pt has no history of HH or SNF, no LTC or VA benefits. Pt has DPOA on file, sister Andree Caba. Pt provided with d/c planning checklist, phone number and plan on whiteboard. Pt anticipated to d/c home via POV with no discharge needs when medically stable. SW will continue to follow. Assessment: Pt who is independent at baseline. Plan: Pt to d/c home via POV when medically stable, SW will continue to follow. REE Urbina Addendum: 03/19/17 at 1701 by ANN MARIE SYLVESTER Amended: Links added.
--- NOTE | 2017-03-19 17:30 | NUR ---
Pain/Nausea/Bowels/Diet Patient a/o x 3, c/o abd and back pain 7/10, meds given prn. Patient c/o nausea, no emesis, Zofran given x 1. Taking diet and liquids well. Abd soft with positive bowel tones. Enema given per orders no BM this shift. VSS, tele SR 60-80's prior to being dc'd. Patient up indep in room, steady gait. RN encouraged patient to amb in steven, but patient declined this shift. Will cont poc.
[2017-03-19] MEDS: Polyethylene Glycol (PEG) 17 Gm Powder PO PRN (18:08)
[2017-03-20] VITALS (7 sets, daily range): BP systolic 112–151; BP diastolic 47–88; PULSE 62–72; RESP 14–20; O2SAT 95–100
[2017-03-20 01:49] LABS: BASOPHILS % (AUTO) 0.4 % (0-3); EOSINOPHILS % (AUTO) 4.9 % (0-5); MONOCYTES % (AUTO) 10.3 % (4-12); Mean Corpuscular Hemoglobin 28.8 pg (27.0-35.0); Platelet Count 220 bil/L (150-400)
[2017-03-20 02:06] LABS: INR 0.94 ratio
[2017-03-20 02:40] LABS: Magnesium 1.9 mg/dL (1.6-2.6); Phosphorus 3.3 mg/dL (2.5-4.9)
--- NOTE | 2017-03-20 05:56 | NUR ---
Pain / Nausea Pt c/o 7/10 pain and nausea at HS; IVP dilaudid administered with relief in pain from 01/09 to 12/10; IV promethazine administered for nausea relief. Roxycodone administered at approx. 2330, with patient stating "It's only beginning to help" upon reassessment. Valium administered this shift for c/o anxiety over upper endoscopy on 03/20; pt able to rest between interventions after administration. VSS, no telemetry.
[2017-03-20] MEDS: Cefepime Inj 2,000 MG in Dextrose 5% Minibag Plus 100 ML IV SCH ×3 (06:20→21:41)
[2017-03-20] MEDS: Pantoprazole 4 mg/mL 10 mL Inj IVPUSH SCH ×2 (07:52→17:31)
[2017-03-20] MEDS: Sodium Chloride LOK Flush 10 mL Syringe IVFLUSH SCH ×2 (07:52→14:45)
[2017-03-20] MEDS: Ondansetron 2 mg/mL 2 mL Inj IVPUSH PRN ×3 (07:52→21:59)
[2017-03-20] MEDS: HYDROmorphone 0.5 mg/0.5 mL iSecure Syringe IVPUSH PRN ×3 (07:53→21:59)
[2017-03-20] MEDS: Promethazine Inj 25 MG in Dextrose 5%-Pha MIX 50 ML IV PRN ×3 (09:07→23:58)
[2017-03-20] MEDS ORDERED: Propofol 10,000 mCg/mL 20 mL Inj ONE (09:47)
--- NOTE | 2017-03-20 13:23 | PCM.PNMED ---
Subjective Date of Service Mar 20, 2017 Subjective Dylan Anderson is a 61-year-old gentleman with a history of GI stromal tumor post resection in 2013, GERD, Huerta's esophagus, hypertension, VERENA, CHF, prostate cancer previously receiving radiation in December 2016 and [facility] admissions for lower GI bleeding secondary to radiation proctitis as well as hematemesis who presented to the emergency department with abdominal pain and hematemesis that started on March 17 at 3 AM. Today, patient notes that he feels so much better than yesterday. He reports that he still has abdominal pain located mainly on the right upper and lower quadrant as well as around the mid-epigastric region. He states that he was able to pass gas today and had a small bowel movement yesterday. Patient has been npo overnight for EGD today. There were no acute events overnight. On review of systems, patient denies headache, visual changes, chest pain, shortness of breath and dysuria. Exam Vital Signs Vital Sign - Last Date Time Temp Pulse Resp B/P Pulse Ox O2 Delivery O2 Flow Rate FiO2 03/20/17 13:07 36.8 67 20 112/76 97 Room Air 03/18/17 00:27 2.00 Intake and Output 03/19/17 03/19/17 03/20/17 Cumulative From/Thru 15:00 23:00 07:00 03/17/17 08:39 - 03/20/17 06:47 Intake Total 2167 ml 970 ml 87456 ml Output Total 1500 ml 950 ml 4950 ml Balance 667 ml 20 ml 5412 ml Intake Oral 1560 ml 440 ml 3290 ml IV Total 607 ml 530 ml 7072 ml Output Urine Total 1500 ml 950 ml 4950 ml # Voids 5 # Bowel Movements 0 0 Exam General: Patient is lying comfortably on bed, AAOX3, not in acute distress, cooperative and pleasant. HEENT: head normocephalic and atraumatic, PERRLA, EOMI, no scleral icterus, noninjected conjunctiva Neck: neck supple, non-tender, no lymphadenopathy, trachea midline, no JVD CV: regular rate and rhythm, s1 and s2 heard, no murmur, radial pulses 2+ and equal bilaterally, no rubs or gallops, no edema Lungs: Clear to auscultation bilaterally, no wheezes, rales or rhonchi, no increased work of breathing Abdomen:hypoactive bowel sounds on 4Q, soft, non-distended, tender to palpation of R >L upper and lower quadrants of the abdomen as well as mid-epigastric region, no organomegally, evidence of well-healed laparotomy incision scar Skin: warm and dry, multiple tattoos Musculoskeletal: 5/5 UE and LE strength bilaterally, full ROM bilaterally Neuro: Grossly neurologically intact, cranial nerves II through XII intact, no dyskinesia, dysmetria, or dysdiadochokinesia noted, sensation intact in extremities Psych: Normal mood and affect IVs and Medications Medications Reviewed: Medications were reviewed in detail Medications High Risk medications include Oxycodone and Dilaudid Lab and Diagnostics Laboratory Tests Test 03/20/17 01:34 White Blood Count 7.1th/mm3 (3.8-10.1) Red Blood Count 3.64mil/mm3 (4.40-5.80) Hemoglobin 10.5g/dL (13.8-17.2) Hematocrit 33.5% (41.0-50.0) Mean Corpuscular Volume 92.0fL (81-100) Mean Corpuscular Hemoglobin 28.8pg (27.0-35.0) Mean Corpuscular Hemoglobin Concent 31.3% (32.0-37.0) Red Cell Distribution Width 12.7% (12.3-15.4) Platelet Count 220bil/L (150-400) Neutrophils (%) (Auto) 54.0% (40-74) Lymphocytes (%) (Auto) 29.8% (14-46) Monocytes (%) (Auto) 10.3% (4-12) Eosinophils (%) (Auto) 4.9% (0-5) Basophils (%) (Auto) 0.4% (0-3) Prothrombin Time 10.0sec (8.1-12.5) Prothromb Time International Ratio 0.94ratio Activated Partial Thromboplast Time 25.0sec (22.8-33.0) Sodium Level 140mEq/L (134-144) Potassium Level 4.4mEq/L (3.5-5.2) Chloride Level 100mEq/L (97-108) Carbon Dioxide Level 24mmol/L (18-29) Blood Urea Nitrogen 24mg/dL (8-27) Creatinine 1.36mg/dL (0.76-1.27) Estimat Glomerular Filtration Rate 57mL/min (>59) Glucose Level 120mg/dL (60-99) Calcium Level 8.6mg/dL (8.5-10.1) Phosphorus Level 3.3mg/dL (2.5-4.9) Magnesium Level 1.9mg/dL (1.6-2.6) Total Bilirubin 0.2mg/dL (0.0-1.2) Aspartate Amino Transf (AST/SGOT) 15U/L (0-50) Alanine Aminotransferase (ALT/SGPT) 15U/L (0-44) Alkaline Phosphatase 88U/L (25-160) Total Protein 5.7g/dL (6.4-8.4) Albumin 3.3g/dL (3.4-5.0) Procalcitonin 0.10ng/mL (0.00-0.08) Microbiology 03/17/17 Blood Culture - Preliminary, Resulted No growth at 2 days; culture examined... Result Diagram: 03/20/17 0134 03/20/17 0134 X-Rays, CTs and MRIs PROCEDURE: CT ABDOMEN AND PELVIS WITH CONTRAST ([id number]) IMPRESSION: 1.Ascending and transverse colitis with no perforation, obstruction, or drainable fluid collections. This may represent ischemic colitis although the celiac axis, superior and inferior mesenteric arteries are grossly patent on this non-angiographic study. No portal venous gas. Infectious colitis is also possible. 2. Postoperative changes of previous gastric stromal tumor removal. 3. Findings discussed in person with Dr. Bland at 10:45 AM on 03/17/2017. ADDENDUM: Please note, abnormal wall thickening and enhancement affects the ASCENDING and transverse colon. Dictated by: Avtar Dias M.D. on 03/17/2017 at 14:47 PROCEDURE: X-RAY CHEST ONE VIEW, PORTABLE ([id number]) IMPRESSION: No radiographic evidence of acute cardiopulmonary pathology. Dictated by: Avtar Dias M.D. on 03/17/2017 at 9:23 Assessment & Plan Dylan Anderson is a 61-year-old gentleman with a history of GI stromal tumor post resection in 2013, GERD, Huerta's esophagus, hypertension, VERENA, CHF, prostate cancer previously receiving radiation in December 2016 and [facility] admissions for lower GI bleeding secondary to radiation proctitis as well as hematemesis who presented to the emergency department with abdominal pain and hematemesis that started on March 17 at 3 AM. Severe Sepsis secondary to Acute colitis, present on admission, improving - Patient notes acute abdominal pain occurring at 3 AM on March 17 with recurrent episodes of vomiting with intermittent hematemesis as well as diarrhea with mixed hematochezia - White blood cell count of 12.5 with a lactic acid of 5.7 consistent with possible infectious etiology, proCalitonin remains negative at 0.08 - CT with contrast shows ascending and transverse colitis with mild thickening likely ischemic versus infectious - Patient denies any exposure to raw chicken, under cooked ground beef, old mayonnaise or other etiologies of infectious colitis and knows no other persons with similar symptoms - Ischemic colitis is possible given the patient's ongoing prostate cancer likely hypercoagulable state, with 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 who will defer to GI. There are no indications for surgical intervention at this time. - Gastrointestinal consult placed in ED and the case was discussed extensively with Dr. Michael Bland - Patient has been started on clear liquid diet. Advance diet as tolerated. However, has been npo overnight for EGD - Continue Broad-spectrum antibiotics initiated for gram-negative coverage and anaerobic coverage with cefepime and metronidazole, No plans for surgery intervention at this time - Fleets enema avoid spasmodic medications like senna and docusate may consider adding MiraLAX - Patient will require 10 days of broad-spectrum antibiotics coverage until 03/26 , consider ciprofloxacin and metronidazole for gram-negative coverage and anaerobic coverage - Oxycodone for baseline pain with Dilaudid available when necessary plan to DC Dilaudid after EGD Acute GI bleed with Hematemesis and hematochezia, present on admission, improving - History of GI scope in December 2016 which failed to reveal any source - The patient has a recent history of GERD as well as distant history of gastric ulcers requiring vagotomy at [facility] in 1990 as well as 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 Michael Bland - Patient started on Protonix 80 mg in ED - Continue Protonix twice a day - GI would like to perform an EGD later today, March 20 given the hematemesis and history of gastric resection Chronic prostate cancer, present on admission, stable - status post radiation therapy last treatment in December 2016 - Patient states that he has not been completely cleared by oncology - Continue outpatient tamsulosin History of congestive heart failure, present on admission, stable - No records of prior echocardiogram in [facility] - Patient has no stigmata of acute exacerbation including no peripheral edema, JVD, pleural effusion - Conservative fluid management for the above, limiting IV hydration once lactic acid normalized - Monitor for signs of fluid overload Acute on Chronic hypertension, present on admission, stable - Blood pressure of 140s over 60s on admission - Records indicate the patient is currently not on any blood pressure medications - Labetalol 10 mg IV for blood pressure greater than 150 with heart rates greater than 70 History of Obstructive sleep apnea, present on admission, stable - Continuous O2 monitoring overnight Chronic anxiety, present on admission, stable - Continue outpatient fluoxetine and diazepam DVT prophylaxis: SCDs given GI bleed GI prophylaxis: Protonix BID CODE STATUS is full Disposition: The goal for today is to proceed with EGD per gastroenterology, advance diet as tolerated, monitor H/H, continue antibiotics, continue oral PPI , control nausea and abdominal pain. The patient's case was discussed with GI (Dr. Bland) after his EGD procedure today. It was noted that the patient did have a stomach ulcer which was biopsied. There is concern that the patient may have Huerta's esophagus and the patient will continue with 40 mg twice a day of Protonix IV and then switched to 40 mg by mouth daily tomorrow. The patient will continue on clear diet today and advance to soft diet tomorrow. The patient should follow up with Dr. Vazquez in 6 weeks. The patient is currently doing well and if he continues to progress he may be ready for discharge home tomorrow. The patient should continue with stool softeners and laxatives at this time in order to continue having bowel movements. Pain Evaluation: Adequate Pain Control GI Prophylaxis: Proton Pump Inhibitor VTE Prophylaxis: SCDs Resuscitation Status: CPR: Attempt Resuscitation Attending Statement The patient was seen and examined together with Dr. Acosta on 03/20/2017 and I have added additional information to the note above. Rosa Acosta DO Mar 20, 2017 13:23 Gaby Trivedi DO Mar 20, 2017 17:14
[2017-03-20] MEDS: metroNIDAZOLE Inj 1,000 MG in IV Premix 1 EACH IV SCH ×2 (13:49→23:58)
[2017-03-20] MEDS ORDERED: Lactated Ringer's 1,000 ML IV ONE (16:06)
--- NOTE | 2017-03-20 16:06 | PCM.HPANE ---
Patient Data Surgeon Admitting Provider:Edson Valladares MD Attending Provider:Gaby Trivedi DO Primary Care Physician:Kelsey Ervin MD Other Provider: Reason for Visit Gi Bleed Ht/WT & BMI Height (Feet): 5 Height (Inches): 9.00 Weight (Kilograms): 96.400 Body Mass Index 31.00 Allergies Coded Allergies: cephalexin (Verified Allergy, Intermediate, lips swelled and itching, 03/17) Past Anesthesia History Anesthesia History: Denies:: Abnormal Airway, Anesthesia Reactions, Difficult Intubation, Fam Anesthesia Reaction, Fam Malignant Hypertherm, Malignant Hyperthermia Diabetes History Hx Diabetes?: No Current Bedside Blood Glucose: 118 MRSA MRSA: No Medications Blood Thinner: Aspirin Reported Medications Aspirin 81 Mg Xctdig86 Mg PO DAILY Ref 0 03/18/17 Cyanocobalamin (Cyanocobalamin Injection)1,000 Mcg/1 Ml Vial1,000 Mcg IM Monthly 03/18/17 Diphenoxylate/Atropine 2.5-0.025 mg (Lomotil 2.5-0.025 mg)1 Each Tablet1 Tablet PO PRN For Diarrhea or Loose Stool 03/18/17 Hydralazine 25 Mg Ydcpgn27 Mg PO QID PRN For Itching Ref 0 03/18/17 Cholecalciferol (Vitamin D3) (Vitamin D)1,000 Unit Capsule1,000 Unit PO BID #1 BOTTLE Ref 0 03/18/17 Atorvastatin (Lipitor)20 Mg Gsfrju92 Mg PO DAILY Ref 0 03/18/17 Prazosin 1 Mg Capsule1 Mg PO HS 03/18/17 Fluoxetine (Prozac)20 Mg Wjqoboo44 Mg PO DAILY Ref 0 03/10/17 Omeprazole 40 Mg Capsule.dr40 Mg PO BID Ref 0 03/08/17 Lipase/Protease/Amylase (Creon DR)24,000 Unit Capsule3 Capsule PO TIDWM 03/08/17 Tamsulosin (Flomax)0.4 Mg Capsule0.8 Mg PO HS Ref 0 01/12/17 Potassium Citrate ER 15 Meq Moltno35 Meq PO DAILY PRN with furosemide Ref 0 TAKE WITH FOOD 01/12/17 Methylphenidate (Ritalin)10 Mg Izyllr85 Mg PO Q 4Hrs Ref 0 07/19/16 Furosemide 40 Mg Zchxlw64 Mg PO DAILY PRN edema 03/25/15 Ranitidine 150 Mg Liqsjsy675 Mg PO HS Ref 0 03/25/15 Diazepam (Valium)5 Mg Tablet5 Mg PO HS PRN For Anxiety 30 Days Ref 0 08/13/14 History History of ENT Problems?: No HEENT History: Positive for:: Hearing Problem Denies:: Abnormal Airway Cataracts Difficult Intubation Dysphagia Sinus Problem Denture Type: None Teeth Condition: Within Normal Limits Hx of Heart Problems?: Yes Cardiovascular History: Positive for:: Edema Heart Murmur Hypertension Denies:: AICD Atrial Fibrillation Cardiac Surgery Chest Pain Congestive Heart Failure Irregular Heartbeat Pacemaker Thrombophlebitis Valvular Heart Disease Hx of Respiratory Problem?: Yes Respiratory History: Positive for:: Cough Hemoptysis Pneumonia (1973) Use of C-PAP Machine (REPORTED VERENA+) Denies:: Asthma COPD Chest Surgery Dyspnea Emphysema Tuberculosis Hx Neurologic Problems?: Yes Neurological History: Positive for:: Dizziness Headaches Seizures (reports 1 seizure in 1990) Denies:: Alzheimer's Disease CVA Dementia Parkinson's Disease Hx of GI Problems?: Yes Hx of Problems?: Yes Genitourinary History: Positive for:: Kidney Stones Urinary Tract Infection Denies:: HX of Hemodialysis HX of Peritoneal Dialysis: No Male Hx: Positive for:: Prostate Problems (prostate cancer--radiation and seed therapy) Denies:: Scrotal Mass Testicular Surgery Skin History: Denies:: History Skin Disorders? Pressure Ulcers Hx Musculoskeletal Problems?: Yes Musculoskeletal History: Positive for:: Back Injury (chronic low back pain) Denies:: Joint Replacement Musculoskeletal Trauma Hx of Psycho/Social Problems?: Yes Psycho Social History: Positive for:: Anxiety Hx Depression Denies:: Bipolar Disorder Suicide Attempt Hx Surgeries?: Yes (neck surgery, tonsilectomy, liver/stomach resction, L5-S1 lami, ULCER REPAI) Hx Any Other Health Problems?: Yes Other History: Positive for:: Cancer (prostate ) Hospitalization (ulcers- 1990, neck surgery, tonsilecomy, ) Denies:: Endocrine Disease Thyroid Disease History Blood Transfusions: Positive for:: Accept Blood Products? Blood Transfusions Denies:: Blood Transfuse Reaction Hx Diabetes: NoBedside Blood Glucose: 118 Occupation: retired Hx Alcohol Use: NoHx Substance Use: No Smoking Status: Former Smoker Have You Smoked inLast 12 mo: No Stop/Bang Treated for Sleep Apnea?: No Do You Have a CPAP Machine?: No S-Snoring: Do You Snore Loudly: Yes T-Tired: feel tired, fatigued: Yes O-Obsered: Observed not breath: Yes P-Blood Pressure: treated: No B- Body Mass Index > 35 kg/m2: No A- Age over 50: Yes N- Neck Large Circumference: No G- Gender Male: Yes VERENA Total Score: 5 Risk Assessment Category Category 1A: Patient has history of documented sleep apnea, and HAS NOT received any narcotic, sedative or anesthesia administration during this stay. Category 1B: Patient has history of documented sleep apnea, and HAS received any narcotic , sedative or anesthesia administration during this stay Category 2: Patient has SUSPECTED Obstructive Sleep Apnea, and HAS received any narcotic , sedative or anesthesia administration during this stay. Category 3: Patient has SUSPECTED Obstructive Sleep Apnea and HAS NOT received narcotic, sedative or anesthesia administration during this stay. Category 4: Outpatient in Procedural Areas with known sleep apnea or who screen positive for High Risk via the STOP/BANG questionnaire. Exam Exam Vital Signs Vital Signs Date Time Temp Pulse Resp B/P Pulse Ox O2 Delivery O2 Flow Rate FiO2 03/20/17 15:30 72 17 125/70 96 Room Air 03/20/17 13:07 36.8 67 20 112/76 97 Room Air General Appearance: Alert, Oriented X3, Cooperative, Mild Distress HEENT/AIRWAY: MP 2, Neck Movement (thick, 50% expected ROM), Mouth Opening (wnl ) Lungs: Clear to Auscultation Heart: Exam Unremarkable Meds/Labs/Diagnostics Bedside Blood Glucose: 118 Labs Test 03/17/17 09:00 03/17/17 11:05 03/17/17 11:25 03/17/17 11:55 Troponin T 0.010ug/L (0.0-0.011) Hold Decker Top Tube Received (Received) Urine Color Straw (YELLOW) Urine Appearance Hazy (CLEAR,HAZY) Urine pH 8.5 (5.0-8.0) Urine Specific [place] 1.015 (1.003-1.035) Urine Protein Negativemg/dL (NEG,TRACE) Urine Glucose (UA) 100mg/dL (NEGATIVE) Urine Ketones 15mg/dL (NEGATIVE) Urine Occult Blood Negative (NEGATIVE) Urine Nitrite Negative (NEGATIVE) Urine Bilirubin Negative (NEGATIVE) Urine Urobilinogen Normalmg/dL (NORMAL) Urine Leukocyte Esterase Negative (NEGATIVE) Urine RBC 0-2/hpf (0-2) Urine WBC 0-5/hpf (0-5) Urine Epithelial Cells Occasional/hpf (NONE-MOD) Urine Crystals None seen (NONE SEEN) Urine Bacteria Few/hpf (NONE-FEW) Urine Hyaline Casts None/lpf (NONE) Urine Granular Casts None seen (NONE SEEN) Urine Waxy Casts None seen (NONE SEEN) Urine Red Blood Cell Casts None seen (NONE SEEN) Urine White Blood Cell Casts None seen (NONE SEEN) Urine Mucus None seen (None Seen) Urine Trichomonas None seen (NONE SEEN) Urine Yeast None (NONE SEEN) Urinalysis Comment None Urine Culture Reflexed Not indicated Lipase 16U/L (13-60) Hemoglobin A1c 5.9% (4.8-5.6) Test 03/18/17 04:15 03/20/17 01:34 Lactic Acid Level 0.9mmol/L (0.4-2.0) White Blood Count 7.1th/mm3 (3.8-10.1) Red Blood Count 3.64mil/mm3 (4.40-5.80) Hemoglobin 10.5g/dL (13.8-17.2) Hematocrit 33.5% (41.0-50.0) Mean Corpuscular Volume 92.0fL (81-100) Mean Corpuscular Hemoglobin 28.8pg (27.0-35.0) Mean Corpuscular Hemoglobin Concent 31.3% (32.0-37.0) Red Cell Distribution Width 12.7% (12.3-15.4) Platelet Count 220bil/L (150-400) Neutrophils (%) (Auto) 54.0% (40-74) Lymphocytes (%) (Auto) 29.8% (14-46) Monocytes (%) (Auto) 10.3% (4-12) Eosinophils (%) (Auto) 4.9% (0-5) Basophils (%) (Auto) 0.4% (0-3) Prothrombin Time 10.0sec (8.1-12.5) Prothromb Time International Ratio 0.94ratio Activated Partial Thromboplast Time 25.0sec (22.8-33.0) Sodium Level 140mEq/L (134-144) Potassium Level 4.4mEq/L (3.5-5.2) Chloride Level 100mEq/L (97-108) Carbon Dioxide Level 24mmol/L (18-29) Blood Urea Nitrogen 24mg/dL (8-27) Creatinine 1.36mg/dL (0.76-1.27) Estimat Glomerular Filtration Rate 57mL/min (>59) Glucose Level 120mg/dL (60-99) Calcium Level 8.6mg/dL (8.5-10.1) Phosphorus Level 3.3mg/dL (2.5-4.9) Magnesium Level 1.9mg/dL (1.6-2.6) Total Bilirubin 0.2mg/dL (0.0-1.2) Aspartate Amino Transf (AST/SGOT) 15U/L (0-50) Alanine Aminotransferase (ALT/SGPT) 15U/L (0-44) Alkaline Phosphatase 88U/L (25-160) Total Protein 5.7g/dL (6.4-8.4) Albumin 3.3g/dL (3.4-5.0) Procalcitonin 0.10ng/mL (0.00-0.08) Plan Impression Patient chart reviewed, patient interviewed and anesthestic plan with risks, benefits, and alternatives discussed, and informed consent obtained. NPO per Anesth. Guidelines: Yes ASA Physical Status: ASA2 Mod Systemic Disease Anesthetic Plan: MAC Bene/Risks/Altern/Consents: Yes HP Complete Prior to Induction: Yes Domingo Rosas MD Mar 20, 2017 16:06
[2017-03-20] MEDS: Lactated Ringer's 1,000 ML IV SCH ×2 (16:17→16:24)
[2017-03-20] MEDS ORDERED: Ondansetron 2 mg/mL 2 mL Inj IVPUSH PRN (16:20)
--- NOTE | 2017-03-20 16:35 | PCM.ENDEGD ---
EGD Date of Service: Mar 20, 2017 Physician Michael Bland Pre Procedure Diagnosis: Hematemesis Post Procedure Dx & Findings: Huerta's esophagus esophageal ulcers gastritis Procedure Esophagogastroduodenoscopy PROCEDURE IN DETAIL: Sedation by anesthesiology After proper sedation, Olympus video endoscope was inserted into patient's mouth and esophagus was successfully intubated. Scope introduced esophagus. Esophagus showed normal shiny whitish mucosa consistent with squamous cell component. Z line was at 40 cm from the incisors. The LES was wide open. There appears to be evidence of salmon-colored mucosa about 4 cm above the Z line. On the edge of Huerta's esophagus, 4 ulcers were noted. They varied from 3 mm to 1 cm in size. There were clean based. Sampling biopsies of the ulcers were obtained. Scope further advanced to the stomach. The entire stomach appeared atrophic reddish consistent with diffuse gastropathy. Cardia fundus body antrum pylorus were all visualized. Retroflexion was done. Stomach was easily inflated and deflatable using air. Scope further events to the distal duodenum. Duodenum revealed normal villous structures with normal appearing folds without any mass ulcer erosion. Impression Wide open LES Clean-based esophageal ulcers in the background of Huerta's esophagus Diffuse gastropathy Recommendation Protonix 40 mg IV twice a day Clear liquid diet Would recommend repeating the EGD in about 6 weeks to confirm healing especially because these ulcers were in the background of Huerta's esophagus. At that time, if need be, with biopsy based per Huerta's protocol. Presedation Assessment Risks and Benefits Informed consent was obtained from the patient after all risks and benefits including but not limited to drug reaction, infection, pain, bleeding, perforation, as well as alternatives were discussed. Patient monitoring Continuous pulse oximetry, cardiac monitoring, blood pressure monitoring, IV access, and oxygen at 2L per nasal cannula. Complications There were no periprocedural complications identified. Post Procedure Plan Post Procedure Recommendations 1. Restrict activities today. 2. Resume normal activities in the morning. 3. Resume medications. 4. GERD behavioral modification: - Avoid fatty, acidic, spicy, large meals - Do not lie down after meals - Do not eat or drink anything for at least 2 1/2 hours before going to bed at night - Discontinue tobacco and alcohol - Decrease or avoid caffeine - Avoid chocolate and mints - Decrease weight - Avoid aspirin and non steroidal anti-inflammatory agents (NSAID) such as Aleve, Advil, Mobic, Naproxen, Ibuprofen, etc 5. Add proton pump inhibitor. Take 30 minutes before 1st meal of the day. 6. Patient informed of normal post procedure side effects as bloating, drowsiness, blood streaking in the stool 7. If gastric biopsy reveal H.pylori, continue with appropriate treatment 8. If small bowel biopsy reveals celiac, continue with appropriate treatment 9. Please don't hesitate to call me with any questions Michael Bland MD Mar 20, 2017 16:35
--- NOTE | 2017-03-20 16:37 | PCM.ANEP1 ---
Post Anesthesia PACU Phase 1 Assessment Vital Signs Vital Signs Date Time Temp Pulse Resp B/P Pulse Ox O2 Delivery O2 Flow Rate FiO2 03/20/17 15:30 72 17 125/70 96 Room Air 03/20/17 13:07 36.8 67 20 112/76 97 Room Air Anesthetic Administered: GA Level of Alertness: Awake, talking PIEDRA's with Equal Strength: Yes Pain: No (10) Nausea or Vomiting: No CV Function & Hydration Stable: Yes Airway Device: Oxygen Delivery: Room Air Lungs: Normal Air Movement PACU Phase 2 Assessment Complications: No Follow up Care: No Patient Instructions Provided: N/A Domingo Rosas MD Mar 20, 2017 16:37
--- NOTE | 2017-03-20 16:38 | NUR ---
Esophagogastroduodenoscopy (EGD) 828 - Called Endoscopy ([facility]) to try and figure out what time he would be leaving for his EGD. They did not know yet. 913 - Spoke to Dr. Morales and the hospitalist team who said to page Dr. Acosta once he returns from his EGD procedure. Gave them a report on his care and condition. 929 - Discussed his care with Dr. Morales and the rest of the multidisciplinary care team during morning rounds. 105 - Called Kaycee from Endo who said he would be going for the procedure about 1600. 1504 - Camilo from Endo called and said he would be coming to get the patient for his EGD. 151 - He left [facility] for [facility]. Care continues. Addendum: 03/20/17 at 1801 by DAVONTE MAGANA RN [id number] Dolan RN from [facility] called and gave a report post-EGD. She stated he had esophagitis and ulcers. Biopsies were obtained as well. She said per MD orders he was to be on a clear liquid diet tonight and advance to a soft diet in the morning Dr. Acosta was notified. 1703 - He returned to [facility]. He complained multiple times about not being able to eat. Provided a number of clear liquids for him to drink. Care continues.
[2017-03-21] MEDS: Sodium Chloride LOK Flush 10 mL Syringe IVFLUSH SCH ×3 (00:30→16:13)
[2017-03-21 00:37] VITALS: BP 105/68; PULSE 68; RESP 18; O2SAT 95
[2017-03-21 03:50] LABS: BASOPHILS % (AUTO) 0.4 % (0-3); EOSINOPHILS % (AUTO) 5.6 % (0-5); MONOCYTES % (AUTO) 11.2 % (4-12); Mean Corpuscular Volume 91.3 fL (81-100); Platelet Count 222 bil/L (150-400)
[2017-03-21 03:55] VITALS: BP 134/72; PULSE 63; RESP 18; O2SAT 100
[2017-03-21] MEDS: HYDROmorphone 0.5 mg/0.5 mL iSecure Syringe IVPUSH PRN ×2 (04:04→10:01)
--- NOTE | 2017-03-21 05:22 | NUR ---
Pain Pt reported pain at 7/10 to abdomen/back this shift; Dilaudid administered x2 for breakthrough pain and Esther administered at Q6H intervals per patient request. Pt requested nausea medication; Zofran administered x1 this shift and Phenergan administered at Q6H intervals per patient request. Pt able to rest between interventions. VSS, no telemetry.
[2017-03-21] MEDS: Promethazine Inj 25 MG in Dextrose 5%-Pha MIX 50 ML IV PRN (06:13)
[2017-03-21] MEDS: Cefepime Inj 2,000 MG in Dextrose 5% Minibag Plus 100 ML IV SCH ×3 (06:14→21:52)
[2017-03-21 08:53] VITALS: BP 118/75; PULSE 62; RESP 12; O2SAT 96
[2017-03-21] MEDS: Pantoprazole 4 mg/mL 10 mL Inj IVPUSH SCH (09:00)
[2017-03-21] MEDS ORDERED: PEG/Electrolytes 4,000 mL Solution PO ONE (09:55)
[2017-03-21] MEDS: Polyethylene Glycol (PEG) 17 Gm Powder PO PRN (10:14)
--- NOTE | 2017-03-21 11:36 | PCM.PNMED ---
Subjective Date of Service Mar 21, 2017 Subjective Dylan Anderson is a 61-year-old gentleman with a history of GI stromal tumor post resection in 2013, GERD, Huerta's esophagus, hypertension, VERENA, CHF, prostate cancer previously receiving radiation in December 2016 and [facility] admissions for lower GI bleeding secondary to radiation proctitis as well as hematemesis who presented to the emergency department with abdominal pain and hematemesis that started on March 17 at 3 AM. Today, patient notes that he continues to have abdominal pain, as if he has a "bowling bowl" in his abdomen. He notes nausea but denies vomiting. He has been on clear liquids but we will be advancing his diet as tolerated today. He has passed flatus but has not had any bowel movements. He had an EGD yesterday which showed a wide open LES as well as multiple esophageal ulcers in the background of Huerta's esophagus and diffuse gastropathy. There were no acute events overnight. Exam Vital Signs Vital Sign - Last Date Time Temp Pulse Resp B/P Pulse Ox O2 Delivery O2 Flow Rate FiO2 03/21/17 08:53 37.0 62 12 118/75 96 Room Air 03/18/17 00:27 2.00 Intake and Output 03/20/17 03/20/17 03/21/17 Cumulative From/Thru 15:00 23:00 07:00 03/17/17 08:39 - 03/21/17 06:54 Intake Total 1925 ml 661 ml 66045 ml Output Total 400 ml 1400 ml 6750 ml Balance 1525 ml -739 ml 6198 ml Intake Oral 1375 ml 240 ml 4905 ml IV Total 550 ml 421 ml 8043 ml Output Urine Total 400 ml 1400 ml 6750 ml # Voids 5 # Bowel Movements 0 0 Exam General: Patient is lying comfortably on bed, AAOX3, not in acute distress, cooperative and pleasant. HEENT: head normocephalic and atraumatic, PERRLA, EOMI, no scleral icterus, noninjected conjunctiva Neck: neck supple, non-tender, no lymphadenopathy, trachea midline, no JVD CV: regular rate and rhythm, s1 and s2 heard, no murmur, radial pulses 2+ and equal bilaterally, no rubs or gallops, no edema Lungs: Clear to auscultation bilaterally, no wheezes, rales or rhonchi, no increased work of breathing Abdomen:hypoactive bowel sounds on 4Q, soft, non-distended, tender to palpation diffusely, no organomegally, evidence of well-healed laparotomy incision scar Skin: warm and dry, multiple tattoos Musculoskeletal: 5/5 UE and LE strength bilaterally, full ROM bilaterally Neuro: Grossly neurologically intact, cranial nerves II through XII intact, no dyskinesia, dysmetria, or dysdiadochokinesia noted, sensation intact in extremities Psych: Normal mood and affect IVs and Medications Medications Reviewed: Medications were reviewed in detail Medications High Risk medications include Dilaudid Lab and Diagnostics Result Diagram: 03/21/17 03303/21/17 033 X-Rays, CTs and MRIs PROCEDURE: CT ABDOMEN AND PELVIS WITH CONTRAST ([id number]) IMPRESSION: 1.Ascending and transverse colitis with no perforation, obstruction, or drainable fluid collections. This may represent ischemic colitis although the celiac axis, superior and inferior mesenteric arteries are grossly patent on this non-angiographic study. No portal venous gas. Infectious colitis is also possible. 2. Postoperative changes of previous gastric stromal tumor removal. 3. Findings discussed in person with Dr. Bland at 10:45 AM on 03/17/2017. ADDENDUM: Please note, abnormal wall thickening and enhancement affects the ASCENDING and transverse colon. Dictated by: Avtar Dias M.D. on 03/17/2017 at 14:47 PROCEDURE: X-RAY CHEST ONE VIEW, PORTABLE ([id number]) IMPRESSION: No radiographic evidence of acute cardiopulmonary pathology. Dictated by: Avtar Dias M.D. on 03/17/2017 at 9:23 Additional Diagnostics EGD on 03/20/17 Impression Wide open LES Clean-based esophageal ulcers in the background of Huerta's esophagus Diffuse gastropathy Assessment & Plan Dylan Anderson is a 61-year-old gentleman with a history of GI stromal tumor post resection in 2013, GERD, Huerta's esophagus, hypertension, VERENA, CHF, prostate cancer previously receiving radiation in December 2016 and [facility] admissions for lower GI bleeding secondary to radiation proctitis as well as hematemesis who presented to the emergency department with abdominal pain and hematemesis that started on March 17 at 3 AM. Today, we will advance his diet as tolerated, switch to oral pantoprazole, and give PEG as patient has not had a bowel movement. Severe Sepsis secondary to Acute colitis, present on admission, improving - Patient notes acute abdominal pain occurring at 3 AM on March 17 with recurrent episodes of vomiting with intermittent hematemesis as well as diarrhea with mixed hematochezia - White blood cell count of 12.5 with a lactic acid of 5.7 consistent with possible infectious etiology, proCalitonin remains negative at 0.08 - CT with contrast shows ascending and transverse colitis with mild thickening likely ischemic versus infectious - Patient denies any exposure to raw chicken, under cooked ground beef, old mayonnaise or other etiologies of infectious colitis and knows no other persons with similar symptoms - Ischemic colitis is possible given the patient's ongoing prostate cancer likely hypercoagulable state, with 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 who will defer to GI. There are no indications for surgical intervention at this time. - Gastrointestinal consult placed in ED and the case was discussed extensively with Dr. Michael Bland - Patient has been started on clear liquid diet. Advance diet as tolerated. - Continue Broad-spectrum antibiotics initiated for gram-negative coverage and anaerobic coverage with cefepime and metronidazole, No plans for surgery intervention at this time - Fleets enema avoid spasmodic medications like senna and docusate may consider adding MiraLAX - Patient will have GoLytely today for constipation as recommended by Dr. Bland with GI - Patient will require 10 days of broad-spectrum antibiotics coverage until 03/26 , consider ciprofloxacin and metronidazole for gram-negative coverage and anaerobic coverage - Oxycodone for baseline pain with Dilaudid. 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 Michael Bland - Patient started on Protonix 80 mg in ED - Continue Protonix twice a day - EGD on March 20 shows Wide open LES, Clean-based esophageal ulcers in the background of Huerta's esophagus, and Diffuse gastropathy -Patient will follow up with gastroenterology, Dr. Bland for repeat EGD Chronic prostate cancer, present on admission, stable - status post radiation therapy last treatment in December 2016 - Patient states that he has not been completely cleared by oncology - Continue outpatient tamsulosin History of congestive heart failure, present on admission, stable - No records of prior echocardiogram in [facility] - Patient has no stigmata of acute exacerbation including no peripheral edema, JVD, pleural effusion - Conservative fluid management for the above, limiting IV hydration once lactic acid normalized - Monitor for signs of fluid overload Acute on Chronic hypertension, present on admission, stable - Blood pressure of 140s over 60s on admission - Records indicate the patient is currently not on any blood pressure medications - Labetalol 10 mg IV for blood pressure greater than 150 with heart rates greater than 70 History of Obstructive sleep apnea, present on admission, stable - Continuous O2 monitoring overnight Chronic anxiety, present on admission, stable - Continue outpatient fluoxetine and diazepam DVT prophylaxis: SCDs given GI bleed GI prophylaxis: Protonix BID CODE STATUS is full Disposition: The goal for today is to advance diet as tolerated, monitor H/H, continue antibiotics, continue oral PPI, control nausea and abdominal pain. Patient will likely discharge to home tomorrow if he has a bowel movement. Pain Evaluation: Adequate Pain Control GI Prophylaxis: Proton Pump Inhibitor VTE Prophylaxis: SCDs Resuscitation Status: CPR: Attempt Resuscitation Attending Statement The patient was seen and examined together with Dr. Acosta on 03/21/17 and I have added additional information to the note above. Rosa Acosta DO Mar 21, 2017 11:36 Gaby Trivedi DO Mar 22, 2017 07:25 Rosa Acosta DO Mar 21, 2017 11:36
[2017-03-21] MEDS: metroNIDAZOLE Inj 1,000 MG in IV Premix 1 EACH IV SCH (12:19)
[2017-03-21 16:02] VITALS: BP 139/80; PULSE 91; RESP 18; O2SAT 96
[2017-03-21] MEDS: HYDROmorphone 1 mg/mL Inj IVPUSH PRN ×2 (16:13→22:37)
[2017-03-21] MEDS: Pantoprazole 40 mg ER24 Tablet PO SCH (16:14)
--- NOTE | 2017-03-21 18:34 | NUR ---
Constipation/Pain Pt reports feeling bloated/pressure pain in abd today, reports passing flatus, MD instructed to utilize miralax PRN, Pt given PRN miralax, Pt reported having formed/brown BM a few hours after dose. Pt reported pain slightly improved after BM, but reported pain was still not in goal. Pt had already received PO oxycodone PRN and IV dilaudid D/C'd earlier in the shift, spoke with MD, dilaudid PRN re-ordered, Pt received dilaudid which he reported as effective for pain.
[2017-03-21 20:03] VITALS: BP 106/67; PULSE 75; RESP 18; O2SAT 95
[2017-03-21] MEDS: Ondansetron 2 mg/mL 2 mL Inj IVPUSH PRN (20:14)
--- NOTE | 2017-03-21 22:28 | NUR ---
transfer transfer pt via wheel chair to 238 report given to Jam Moyer pt not on tele, RA, IV ABX running, all belongings sent with pt and questions answered
--- NOTE | 2017-03-21 22:57 | NUR ---
PCC transfer Received report from Laal Barker RN @ [id number],Dx GIB has been r/o w/EGD which showed known ulceration,H&H has been stable, no s/sx of bleeding PPI switched to P.O. ADAT, recheck H&H in am likely d/c hm.
[2017-03-22] MEDS: metroNIDAZOLE Inj 1,000 MG in IV Premix 1 EACH IV SCH ×2 (00:25→12:00)
[2017-03-22] MEDS: Sodium Chloride LOK Flush 10 mL Syringe IVFLUSH SCH ×3 (00:30→16:30)
[2017-03-22 00:50] VITALS: BP 128/78; PULSE 66; RESP 19; O2SAT 96
[2017-03-22] MEDS: Cefepime Inj 2,000 MG in Dextrose 5% Minibag Plus 100 ML IV SCH ×3 (06:07→22:01)
[2017-03-22 06:14] VITALS: BP 125/78; PULSE 65; RESP 16; O2SAT 94
[2017-03-22 07:39] LABS: BASOPHILS % (AUTO) 0.3 % (0-3); EOSINOPHILS % (AUTO) 6.3 % (0-5); MONOCYTES % (AUTO) 8.7 % (4-12); Mean Corpuscular Hemoglobin 28.8 pg (27.0-35.0); Mean Corpuscular Volume 92.7 fL (81-100); NEUTROPHILS % (AUTO) 65.7 % (40-74); Platelet Count 198 bil/L (150-400)
[2017-03-22] MEDS: Pantoprazole 40 mg ER24 Tablet PO SCH ×2 (08:22→16:54)
[2017-03-22] MEDS: HYDROmorphone 1 mg/mL Inj IVPUSH PRN (10:14)
--- NOTE | 2017-03-22 10:46 | PCM.PNMED ---
Subjective Date of Service Mar 22, 2017 Subjective Patient seen and examined. Complains of epigastric pain still, improving says. Vitals noted. Exam Vital Signs Vital Sign - Last Date Time Temp Pulse Resp B/P Pulse Ox O2 Delivery O2 Flow Rate FiO2 03/22/17 06:14 36.8 65 16 125/78 94 Room Air 03/18/17 00:27 2.00 Intake and Output 03/21/17 03/21/17 03/22/17 Cumulative From/Thru 15:00 23:00 07:00 03/17/17 08:39 - 03/22/17 06:15 Intake Total 1906 ml 464 ml 18281 ml Output Total 1400 ml 8150 ml Balance 506 ml 464 ml 7168 ml Intake Oral 1380 ml 120 ml 6405 ml IV Total 526 ml 344 ml 8913 ml Output Urine Total 1400 ml 8150 ml # Voids 2 7 # Bowel Movements 1 1 Exam General: Patient is lying comfortably on bed, AAOX3, not in acute distress, cooperative and pleasant. CV: regular rate and rhythm, s1 and s2 heard, no murmur, radial pulses 2+ and equal bilaterally, no rubs or gallops, no edema Lungs: Clear to auscultation bilaterally, no wheezes, rales or rhonchi, no increased work of breathing Abdomen:Bs+, soft, non-distended, tender to palpation diffusely, no organomegally, evidence of well-healed laparotomy incision scar Skin: warm and dry, multiple tattoos Musculoskeletal: 5/5 UE and LE strength bilaterally, full ROM bilaterally Lab and Diagnostics Result Diagram: 03/22/17 0718 03/22/17 0723 X-Rays, CTs and MRIs PROCEDURE: CT ABDOMEN AND PELVIS WITH CONTRAST ([id number]) IMPRESSION: 1.Ascending and transverse colitis with no perforation, obstruction, or drainable fluid collections. This may represent ischemic colitis although the celiac axis, superior and inferior mesenteric arteries are grossly patent on this non-angiographic study. No portal venous gas. Infectious colitis is also possible. 2. Postoperative changes of previous gastric stromal tumor removal. 3. Findings discussed in person with Dr. Bland at 10:45 AM on 03/17/2017. ADDENDUM: Please note, abnormal wall thickening and enhancement affects the ASCENDING and transverse colon. Dictated by: Avtar Dias M.D. on 03/17/2017 at 14:47 PROCEDURE: X-RAY CHEST ONE VIEW, PORTABLE ([id number]) IMPRESSION: No radiographic evidence of acute cardiopulmonary pathology. Dictated by: Avtar Dias M.D. on 03/17/2017 at 9:23 Additional Diagnostics EGD on 03/20/17 Impression Wide open LES Clean-based esophageal ulcers in the background of Huerta's esophagus Diffuse gastropathy Assessment & Plan Dylan Anderson is a 61-year-old gentleman with a history of GI stromal tumor post resection in 2013, GERD, Huerta's esophagus, hypertension, VERENA, CHF, prostate cancer previously receiving radiation in December 2016 and [facility] admissions for lower GI bleeding secondary to radiation proctitis as well as hematemesis who presented to the emergency department with abdominal pain and hematemesis that started on March 17 at 3 AM. Today, we will advance his diet as tolerated, switch to oral pantoprazole, and give PEG as patient has not had a bowel movement. 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 Bland for repeat EGD - recs noted :continue ppi, hpylori pending Severe Sepsis secondary to Acute colitis, present on admission, resolving - Patient notes acute abdominal pain occurring at 3 AM on March 17 with recurrent episodes of vomiting with intermittent hematemesis as well as diarrhea with mixed hematochezia - White blood cell count of 12.5 with a lactic acid of 5.7 consistent with possible infectious etiology, proCalitonin remains negative at 0.08 - CT with contrast shows ascending and transverse colitis with mild thickening likely ischemic versus infectious - Patient denies any exposure to raw chicken, under cooked ground beef, old mayonnaise or other etiologies of infectious colitis and knows no other persons with similar symptoms - Ischemic colitis is possible given the patient's ongoing prostate cancer likely hypercoagulable state, with 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 who will defer to GI. There are no indications for surgical intervention at this time. - Gastrointestinal consult placed in ED and the case was discussed extensively with Dr. Michael Bland - Patient has been started on clear liquid diet. Advance diet as tolerated. - Continue Broad-spectrum antibiotics initiated for gram-negative coverage and anaerobic coverage with cefepime and metronidazole, No plans for surgery intervention at this time - Patient will require 10 days of broad-spectrum antibiotics coverage until 03/26 , may switch to ciprofloxacin and metronidazole for gram-negative coverage and anaerobic coverage - Oxycodone for baseline pain with Dilaudid. Dilaudid has been discontinued, for transition to oral meds Chronic prostate cancer, present on admission, stable - status post radiation therapy last treatment in December 2016 - Patient states that he has not been completely cleared by oncology - Continue outpatient tamsulosin History of congestive heart failure, present on admission, stable - No records of prior echocardiogram in [facility] - Patient has no stigmata of acute exacerbation including no peripheral edema, JVD, pleural effusion - Conservative fluid management for the above, limiting IV hydration once lactic acid normalized - Monitor for signs of fluid overload Acute on Chronic hypertension, present on admission, stable - Blood pressure of 140s over 60s on admission, WNL now - Records indicate the patient is currently not on any blood pressure medications History of Obstructive sleep apnea, present on admission, stable - Continuous O2 monitoring overnight Chronic anxiety, present on admission, stable - Continue outpatient fluoxetine and diazepam DVT prophylaxis: SCDs given GI bleed GI prophylaxis: Protonix BID CODE STATUS is full Disposition: The goal for today is to advance diet as tolerated, monitor H/H, continue antibiotics, continue oral PPI, control nausea and abdominal pain. Patient will likely discharge to home once tolerates diet and improves overall GI Prophylaxis: Proton Pump Inhibitor VTE Prophylaxis: SCDs Resuscitation Status: CPR: Attempt Resuscitation Time spent 35 mins Uvaldo Calixto MD Mar 22, 2017 10:46 Resuscitation Status: CPR: Attempt Resuscitation Uvaldo Calixto MD Mar 22, 2017 10:46
[2017-03-22 11:00] VITALS: BP 130/78; PULSE 74; RESP 18; O2SAT 94
[2017-03-22] MEDS ORDERED: HYDROmorphone 0.5 mg/0.5 mL iSecure Syringe IVPUSH PRN (14:40)
--- NOTE | 2017-03-22 15:59 | PATH ---
SURGICAL PATHOLOGY Attending Physician:Michael Bland M.D. CASE STATUS: Signed Out PATIENT NAME: JOSE WATERMAN PID: [id number] : 1955 DATE COLLECTED:03/20/2017 00:00 SPECIMEN: Esophagus, Biopsy CLINICAL HISTORY: 1). ESOPHAGEAL ULCER BIOPSY FINAL DIAGNOSIS: Esophageal Ulcer, Biopsy: Squamocolumnar junctional mucosa with active, ulcerative esophagitis and with involvement by intestinal metaplasia/Huerta's metaplasia. Alcian blue pH 2.5/PAS stain is pending to assess for organisms; results will be reported in an addendum. No viral cytopathic effect is identified. Negative for dysplasia and malignancy. ICD10: K20.9 GROSS DESCRIPTION: The specimen is received in one formalin filled container labeled with the patient's name, sublabeled "esophageal ulcer" and consists of 3 extremely tiny portions of tissue which aggregate to 0.1 x 0.1 x 0.1 CM. The specimen is entirely submitted in one cassette. 03/21/2017DC ICD-9 CODES: CPT CODES: 1: 52376, 10027, 96111, 83697 PROCEDURE/ADDENDA: Immunohistochemistry SPI Interpretation {Not Entered} Results-Comments An Alcian blue/PAS stain is performed to evaluate for fungal organisms and is negative. However, the above-mentioned intestinal metaplasia is highlighted. Electronically Signed Out Misbah Infante MD, Ph.D. Electronically Signed Out Tonja Andrews MD [facility] Pathology [facility], [place] [address] Technical component performed at [facility], [facility] [address], [place], [address]
--- NOTE | 2017-03-22 18:38 | NUR ---
Pain Pain of 7/10 managed with Oxycodone 10 mg tablet, given twice this shift. Patient requested one dose of IV Dilaudid this shift for comfort, he stated " I am not mentally prepared yet, I need to calm myself and be able to prepare for the transition". Cooperative with care and pleasant. For possible discharge tomorrow.
[2017-03-22 19:18] VITALS: BP 124/75; PULSE 76; RESP 16; O2SAT 95
[2017-03-22 20:29] VITALS: BP 146/97; PULSE 95; RESP 16; O2SAT 96
[2017-03-23] MEDS: Sodium Chloride LOK Flush 10 mL Syringe IVFLUSH SCH ×2 (00:13→08:30)
[2017-03-23] MEDS: metroNIDAZOLE Inj 1,000 MG in IV Premix 1 EACH IV SCH ×2 (00:16→12:19)
[2017-03-23 00:21] VITALS: BP 149/97; PULSE 80; RESP 17; O2SAT 97
[2017-03-23] MEDS: Ondansetron 2 mg/mL 2 mL Inj IVPUSH PRN (00:34)
--- NOTE | 2017-03-23 05:07 | NUR ---
Mobility Pt. has been ambulating independently in rm, steady on feet, denies ANDREWS or dizziness, vitals stable, slept most of the night, continue with IV ABO, call light in reach at all times, will continue to monitor.
[2017-03-23] MEDS: Cefepime Inj 2,000 MG in Dextrose 5% Minibag Plus 100 ML IV SCH (06:15)
[2017-03-23 06:36] VITALS: BP 119/85; PULSE 70; RESP 16; O2SAT 95
[2017-03-23] MEDS: Pantoprazole 40 mg ER24 Tablet PO SCH (08:02)
--- NOTE | 2017-03-23 11:16 | PCM.DIMED ---
Discharge Instructions Date of Service Mar 23, 2017 Dates of Hospitalization Mar 17, 2017 at 10:55 Diet Discharge Diet: Other (No spicy, no late night snacks, atleast 3 hours difference between food consumption and bed time, heart healthy) Activity Discharge Activity: No restrictions Call your provider Call your provider for: Vomitting, Weakness (unilateral) Patient Instructions Follow-up with PCP in: 1 week Provider: Michael Bland MD Follow-up in: 2 weeks Uvaldo Calixto MD Mar 23, 2017 11:16
[2017-03-23] MEDS ORDERED: ZOF8 PO (11:20)
[2017-03-23] MEDS ORDERED: CIPR-231 PO (11:20)
[2017-03-23] MEDS ORDERED: OXYC-530 PO (11:20)
[2017-03-23] MEDS ORDERED: METR500T PO (11:20)
--- NOTE | 2017-03-23 11:25 | PCM.DC.MED ---
Discharge Summary Date of Service Mar 23, 2017 Dates of Hospitalization Date of Hospital Admission Mar 17, 2017 at 10:55 Date of Discharge: Mar 23, 2017 Providers: Admitting Physician: Edson Valladares MD Primary Care Physician: Kelsey Ervin MD Attending Physician: Linda Schmidt MD Procedures XRay, CTs & MRIs PROCEDURE: CT ABDOMEN AND PELVIS WITH CONTRAST ([id number]) IMPRESSION: 1.Ascending and transverse colitis with no perforation, obstruction, or drainable fluid collections. This may represent ischemic colitis although the celiac axis, superior and inferior mesenteric arteries are grossly patent on this non-angiographic study. No portal venous gas. Infectious colitis is also possible. 2. Postoperative changes of previous gastric stromal tumor removal. 3. Findings discussed in person with Dr. Bland at 10:45 AM on 03/17/2017. ADDENDUM: Please note, abnormal wall thickening and enhancement affects the ASCENDING and transverse colon. Dictated by: Avtar Dias M.D. on 03/17/2017 at 14:47 PROCEDURE: X-RAY CHEST ONE VIEW, PORTABLE ([id number]) IMPRESSION: No radiographic evidence of acute cardiopulmonary pathology. Dictated by: Avtar Dias M.D. on 03/17/2017 at 9:23 Other Diagnostics EGD on 03/20/17 Impression Wide open LES Clean-based esophageal ulcers in the background of Huerta's esophagus Diffuse gastropathy Brief History Dylan Anderson is a 61-year-old gentleman with a history of GI stromal tumor post resection in 2013, GERD, Huerta's esophagus, hypertension, VERENA, CHF, prostate cancer previously receiving radiation in December 2016 and [facility] admissions for lower GI bleeding secondary to radiation proctitis as well as hematemesis who presented to the emergency department with abdominal pain and hematemesis that started on March 17 at 3 AM. The patient describes the abdominal pain is both sharp and achy and rated at 7 out of 10 which becomes 9 out of 10 with palpation. The patient states that it feels generalized in the middle of his abdomen however it seems to radiate upwards towards his*. Patient denies any history of abdominal pain similar to this in the past. The patient admits to starting vomiting overnight with at least 10 episodes with several noted hematemesis. The patient also admits to some diarrhea with mild mixed hematochezia noted. The patient has been seen twice within the last several months for GI bleed however no source of bleeding has been noted. The patient had a colonoscopy 2 weeks ago on 03/10/17 that was indeterminate due to poor bowel prep. Most recently on 01/12 after presenting to the ED with hematemesis, an EGD showed surgical changes consistent with prior gastrointestinal stromal tumor resection surgery of his stomach, Huerta's esophagus but no old or fresh blood was visualized and a source for his hematemsis at that time was not identified. Hospital Course Dylan Anderson is a 61-year-old gentleman with a history of GI stromal tumor post resection in 2013, GERD, Huerta's esophagus, hypertension, VERENA, CHF, prostate cancer previously receiving radiation in December 2016 and [facility] admissions for lower GI bleeding secondary to radiation proctitis as well as hematemesis who presented to the emergency department with abdominal pain and hematemesis that started on March 17 at 3 AM. 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 Bland for repeat EGD - recs noted :continue ppi Severe Sepsis secondary to Acute colitis, present on admission, resolved - Patient notes acute abdominal pain occurring at 3 AM on March 17 with recurrent episodes of vomiting with intermittent hematemesis as well as diarrhea with mixed hematochezia - White blood cell count of 12.5 with a lactic acid of 5.7 consistent with possible infectious etiology, proCalitonin remains negative at 0.08 - CT with contrast shows ascending and transverse colitis with mild thickening likely ischemic versus infectiou - Surgery was consulted for possible surgical abdomen, and the case was discussed extensively with Peg Tubbs M.D. who will defer to GI. There were no indications for surgery - Gastrointestinal consult placed in ED and the case was discussed extensively with Dr. Michael Bland -EGD done, results noted for esophageal ulcers - To finish the course of cipro and flagyl through for colitis - Oxycodone for pain, zofran for nausea Chronic prostate cancer, present on admission, stable - status post radiation therapy last treatment in December 2016 - Patient states that he has not been completely cleared by oncology - Continue outpatient tamsulosin - follow up outpatient History of congestive heart failure, present on admission, stable - No records of prior echocardiogram in [facility] - Patient has no stigmata of acute exacerbation including no peripheral edema, JVD, pleural effusion Acute on Chronic hypertension, present on admission, stable - Blood pressure of 140s over 60s on admission, WNL now - Records indicate the patient is currently not on any blood pressure medications History of Obstructive sleep apnea, present on admission, stable Chronic anxiety, present on admission, stable - Continue outpatient fluoxetine and diazepam - follows up with psychologist outpatient Exam Vital Signs (Last) Date Time Temp Pulse Resp B/P Pulse Ox O2 Delivery O2 Flow Rate FiO2 03/23/17 06:36 36.8 70 16 119/85 95 Room Air 03/18/17 00:27 2.00 Test 03/17/17 09:00 03/17/17 11:05 03/17/17 11:25 03/17/17 11:55 Troponin T 0.010ug/L (0.0-0.011) Hold [place] Top Tube Received (Received) Urine Color Straw (YELLOW) Urine Appearance Hazy (CLEAR,HAZY) Urine pH 8.5 (5.0-8.0) Urine Specific [place] 1.015 (1.003-1.035) Urine Protein Negativemg/dL (NEG,TRACE) Urine Glucose (UA) 100mg/dL (NEGATIVE) Urine Ketones 15mg/dL (NEGATIVE) Urine Occult Blood Negative (NEGATIVE) Urine Nitrite Negative (NEGATIVE) Urine Bilirubin Negative (NEGATIVE) Urine Urobilinogen Normalmg/dL (NORMAL) Urine Leukocyte Esterase Negative (NEGATIVE) Urine RBC 0-2/hpf (0-2) Urine WBC 0-5/hpf (0-5) Urine Epithelial Cells Occasional/hpf (NONE-MOD) Urine Crystals None seen (NONE SEEN) Urine Bacteria Few/hpf (NONE-FEW) Urine Hyaline Casts None/lpf (NONE) Urine Granular Casts None seen (NONE SEEN) Urine Waxy Casts None seen (NONE SEEN) Urine Red Blood Cell Casts None seen (NONE SEEN) Urine White Blood Cell Casts None seen (NONE SEEN) Urine Mucus None seen (None Seen) Urine Trichomonas None seen (NONE SEEN) Urine Yeast None (NONE SEEN) Urinalysis Comment None Urine Culture Reflexed Not indicated Lipase 16U/L (13-60) Hemoglobin A1c 5.9% (4.8-5.6) Test 03/18/17 04:15 03/20/17 01:34 03/22/17 07:18 03/22/17 07:23 Lactic Acid Level 0.9mmol/L (0.4-2.0) Prothrombin Time 10.0sec (8.1-12.5) Prothromb Time International Ratio 0.94ratio Activated Partial Thromboplast Time 25.0sec (22.8-33.0) Phosphorus Level 3.3mg/dL (2.5-4.9) Magnesium Level 1.9mg/dL (1.6-2.6) Procalcitonin 0.10ng/mL (0.00-0.08) White Blood Count 6.7th/mm3 (3.8-10.1) Red Blood Count 3.82mil/mm3 (4.40-5.80) Hemoglobin 11.0g/dL (13.8-17.2) Hematocrit 35.4% (41.0-50.0) Mean Corpuscular Volume 92.7fL (81-100) Mean Corpuscular Hemoglobin 28.8pg (27.0-35.0) Mean Corpuscular Hemoglobin Concent 31.1% (32.0-37.0) Red Cell Distribution Width 12.8% (12.3-15.4) Platelet Count 198bil/L (150-400) Neutrophils (%) (Auto) 65.7% (40-74) Lymphocytes (%) (Auto) 18.1% (14-46) Monocytes (%) (Auto) 8.7% (4-12) Eosinophils (%) (Auto) 6.3% (0-5) Basophils (%) (Auto) 0.3% (0-3) Sodium Level 139mEq/L (134-144) Potassium Level 4.5mEq/L (3.5-5.2) Chloride Level 99mEq/L (97-108) Carbon Dioxide Level 29mmol/L (18-29) Blood Urea Nitrogen 21mg/dL (8-27) Creatinine 1.20mg/dL (0.76-1.27) Estimat Glomerular Filtration Rate 65mL/min (>59) Glucose Level 123mg/dL (60-99) Calcium Level 8.6mg/dL (8.5-10.1) Total Bilirubin 0.2mg/dL (0.0-1.2) Aspartate Amino Transf (AST/SGOT) 18U/L (0-50) Alanine Aminotransferase (ALT/SGPT) 17U/L (0-44) Alkaline Phosphatase 94U/L (25-160) Total Protein 5.8g/dL (6.4-8.4) Albumin 3.4g/dL (3.4-5.0) Discharge Medications Discharge Medications Aspirin (Aspirin) 81 Mg Tablet 81 MG PO DAILY (Reported) Atorvastatin (Lipitor) 20 Mg Tablet 20 MG PO DAILY (Reported) Cholecalciferol (Vitamin D3) (Vitamin D) 1,000 Unit Capsule 1,000 UNIT PO BID ( Reported) Ciprofloxacin (Cipro) 500 Mg Tablet 500 MG PO BID Prescribed by: LINDA SCHMIDT MD Cyanocobalamin (Cyanocobalamin Injection) 1,000 Mcg/1 Ml Vial 1,000 MCG IM Monthly (Reported) Fluoxetine (Prozac) 20 Mg Capsule 40 MG PO DAILY (Reported) Lipase/Protease/Amylase (Creon DR) 24,000 Unit Capsule 3 CAPSULE PO TIDWM ( Reported) Methylphenidate (Ritalin) 10 Mg Tablet 10 MG PO Q 4Hrs (Reported) Metronidazole (Flagyl) 500 Mg Tablet 500 MG PO Q8H Prescribed by: LINDA SCHMIDT MD Omeprazole (Omeprazole) 40 Mg Capsule.dr 40 MG PO BID (Reported) Prazosin (Prazosin) 1 Mg Capsule 1 MG PO HS (Reported) Ranitidine (Ranitidine) 150 Mg Capsule 150 MG PO HS (Reported) Tamsulosin (Flomax) 0.4 Mg Capsule 0.8 MG PO HS (Reported) As needed Diazepam (Valium) 5 Mg Tablet 5 MG PO HS PRN PRN For Anxiety (Reported) Diphenoxylate/Atropine 2.5-0.025 mg (Lomotil 2.5-0.025 mg) 1 Each Tablet 1 TABLET PO PRN For Diarrhea or Loose Stool (Reported) Furosemide (Furosemide) 40 Mg Tablet 40 MG PO DAILY PRN PRN edema (Reported) Hydralazine (Hydralazine) 25 Mg Tablet 25 MG PO QID PRN PRN For Itching ( Reported) Ondansetron (Zofran) 8 Mg Tablet 8 MG PO Q4H PRN PRN For Nausea Prescribed by: LINDA SCHMIDT MD Potassium Citrate ER (Potassium Citrate ER) 15 Meq Tablet 20 MEQ PO DAILY PRN PRN with furosemide (Reported) TAKE WITH FOOD oxyCODONE (oxyCODONE) 5 Mg Tablet 10 MG PO Q6H PRN PRN For Moderate Pain Prescribed by: LINDA SCHMIDT MD Followup Plan Discharge Diet: Other (No spicy, no late night snacks, atleast 3 hours difference between food consumption and bed time, heart healthy) Discharge Activity: No restrictions Follow-up with PCP in: 1 week Provider: Michael Bland MD Follow-up in: 2 weeks Time spent 35 mins Linda Schmidt MD Mar 23, 2017 11:25
--- NOTE | 2017-03-23 11:45 | NUR ---
Social Work: Discharge/Bedside Rounding D: Bedside rounding completed with the patient's care team and the patient. The patient is medically stable for discharge home. He expresses anxiety about leaving today but through reflection from the team and review of the possible risks of staying longer than is medically necessary patient is in agreement with discharge. patient is ambulating I during admission. Bedside RN is to review discharge ppw and medications. PAN DUMPER confirmed that patient has no social needs or need for home health. Patient has arranged for transportation back to his apartment in [place]. No sw needs identified at this time. A: Pt who is I at baseline. P: Pt to to discharge home today via POV and no sw needs. REE Thompson
--- NOTE | 2017-03-23 14:00 | NUR ---
Discharge Pt discharged to home with personal belongings,prescriptions, and discharge notes. Education provided on anxiety and plan to use out reach recourses. Patient left in own car.
== END 2017-03-23 14:00 | disposition home or self-care (01) | DRG 872 ==
LOC: SED 08:32 → PCC 10:55 → MOC 03-21 22:20
PROVIDERS: ADMIT Internal Medicine; ATTEND Internal Medicine
PROC: 0DB58ZX Excision of Esophagus, Via Natural or Artificial Opening Endoscopic, Diagnostic (ICD-10-PCS; principal; 2017-03-20 16:00)
DX: A41.9 Sepsis, unspecified organism (principal); K92.2 Gastrointestinal hemorrhage, unspecified; K22.10 Ulcer of esophagus without bleeding; R65.20 Severe sepsis without septic shock; K52.89 Other specified noninfective gastroenteritis and colitis; E86.0 Dehydration; K21.9 Gastro-esophageal reflux disease without esophagitis; I10 Essential (primary) hypertension; G47.33 Obstructive sleep apnea (adult) (pediatric); C61 Malignant neoplasm of prostate; F41.9 Anxiety disorder, unspecified; Z87.891 Personal history of nicotine dependence